=== PATIENT | female | born 1980 | race Caucasian/White ===

== ENCOUNTER 2016-10-10 21:23 | Emergency (ER) | payer OTHER ==
[~2016-10-10] VITALS: Ht 162.5 cm; Wt 92.1 kg
[~2016-10-10 21:23] MED LIST: AMITRIPTYLINE25 MG PO; ATIVAN1 MG PO; COUMADIN10 M1 PO; COUMADIN5 M2 PO; DURAGESIC1 EACH TD; DURAGESIC25 MCG/HR TD; FLAGYL500 MG PO; LEXAPRO20 MG PO; METHOCARBAMOL750 M1 PO; NEURONTIN600 MG PO; OXYCODONE HCL10 M1 PO; PHENERGAN25 M3 PO; PLAVIX75 M1 PO; PROTONIX40 MG PO; RIZATRIPTAN5 MG PO; TRICOR48 MG PO; ZOFRAN4 MG PO
[2016-10-10] MEDS ORDERED: LEVORPHANOL TART2 MG PO (21:42)
[2016-10-10] MEDS ORDERED: CLONAZEPAM1 MG PO (21:43)
[2016-10-10] MEDS ORDERED: CYMBALTA60 MG PO (21:45)
[2016-10-10 22:20] LABS: BASO % 0.3 % (0.0-1.0); EOS % 0.3 % (1.0-4.0); HEMATOCRIT 36.5 % (37.0-47.0); HEMOGLOBIN 12.4 g/dl (12.0-16.0); LYMPH # 1.7 10*3/uL (1.3-4.4); LYMPH % 26.6 % (27.0-41.0); MEAN CELL VOLUME 84.5 fl (81.0-99.0); MEAN CORPUSCULAR HGB 28.7 pg (27.0-31.0); MEAN PLATELET VOLUME 8.9 fl (9.6-12.3); MONO # 0.3 10*3/uL (0.1-1.0); MONO % 4.5 % (3.0-9.0); NEUT # 4.4 10*3/uL (2.3-7.9); PLATELET COUNT AUTOMATED 323 10*3/uL (130-400); RED BLOOD COUNT 4.32 10*6/uL (4.10-5.10); RED CELL DISTRI WIDTH 12.2 % (0-14.5); WHITE BLOOD COUNT 6.5 10*3/uL (4.8-10.8)
[2016-10-10 22:34] LABS: ALBUMIN 4.1 gm/dl (3.1-4.5); BILIRUBIN, TOTAL 0.3 mg/dl (0.2-1.0); BUN 15 mg/dl (7-24); CARBON DIOXIDE 23 mmol/L (21-32); CHLORIDE 103 mmol/L (98-107); EST GLOM FILT AFRICAN AMERICAN > 60 ml/min; GLUCOSE 89 mg/dL (65-99); POTASSIUM 3.5 mmol/L (3.5-5.1); SGOT/AST 24 IU/L (3-35); SGPT/ALT 34 U/L (12-78); SODIUM 141 mmol/L (136-145); TOTAL PROTEIN 7.9 gm/dL (6.4-8.2)
[2016-10-10 22:37] LABS: ALKALINE PHOSPHATASE < 10 U/L (45-117)
[2016-10-10 22:41] LABS: INTERNATIONAL NORM RATIO 3.2 (2.0-3.5); PROTHROMBIN TIME 36.5 SECONDS (9.0-12.4)
== END 2016-10-11 02:15 | disposition home or self-care (01) ==
LOC: ED 21:23
PROVIDERS: Physician Assistant
DX: K52.9 Noninfective gastroenteritis and colitis, unspecified (principal); R51 Headache; Z88.1 Allergy status to other antibiotic agents; Z91.040 Latex allergy status; Z88.8 Allergy status to other drugs, medicaments and biological substances; Z79.899 Other long term (current) drug therapy; Z79.02 Long term (current) use of antithrombotics/antiplatelets; Z87.891 Personal history of nicotine dependence

== ENCOUNTER 2016-10-11 21:03 | Emergency (ER) | payer OTHER ==
[~2016-10-11] VITALS: Ht 162.5 cm; Wt 92.5 kg
[~2016-10-11 21:03] MED LIST changes: +CLONAZEPAM1 MG PO; +CYMBALTA60 MG PO; +LEVORPHANOL TART2 MG PO
[2016-10-11 21:59] LABS: BASO % 0.3 % (0.0-1.0); EOS % 0.3 % (1.0-4.0); HEMATOCRIT 34.8 % (37.0-47.0); HEMOGLOBIN 11.5 g/dl (12.0-16.0); LYMPH # 1.3 10*3/uL (1.3-4.4); MEAN CELL VOLUME 85.5 fl (81.0-99.0); MEAN CORPUSCULAR HGB 28.3 pg (27.0-31.0); MEAN PLATELET VOLUME 9.1 fl (9.6-12.3); MONO # 0.4 10*3/uL (0.1-1.0); MONO % 5.2 % (3.0-9.0); NEUT # 5.2 10*3/uL (2.3-7.9); NEUT % 74.9 % (47.0-73.0); PLATELET COUNT AUTOMATED 324 10*3/uL (130-400); RED BLOOD COUNT 4.07 10*6/uL (4.10-5.10); RED CELL DISTRI WIDTH 12.5 % (0-14.5); WHITE BLOOD COUNT 6.9 10*3/uL (4.8-10.8)
[2016-10-11 22:06] LABS: INTERNATIONAL NORM RATIO 3.8 (2.0-3.5); PROTHROMBIN TIME 44.4 SECONDS (9.0-12.4)
[2016-10-11 22:14] LABS: ALBUMIN 3.9 gm/dl (3.1-4.5); BILIRUBIN, TOTAL 0.4 mg/dl (0.2-1.0); BUN 15 mg/dl (7-24); CARBON DIOXIDE 24 mmol/L (21-32); CHLORIDE 107 mmol/L (98-107); EST GLOM FILT AFRICAN AMERICAN > 60 ml/min; GLUCOSE 89 mg/dL (65-99); POTASSIUM 3.7 mmol/L (3.5-5.1); SGOT/AST 22 IU/L (3-35); SGPT/ALT 32 U/L (12-78); SODIUM 144 mmol/L (136-145); TOTAL PROTEIN 7.3 gm/dL (6.4-8.2)
[2016-10-11 22:16] LABS: ALKALINE PHOSPHATASE < 10 U/L (45-117)
== END 2016-10-11 23:55 | disposition admitted as inpatient to this hospital (09) ==
LOC: ED 21:03
PROVIDERS: Physician Assistant
DX: R10.11 Right upper quadrant pain (principal); R11.2 Nausea with vomiting, unspecified; F17.200 Nicotine dependence, unspecified, uncomplicated; Z90.49 Acquired absence of other specified parts of digestive tract; Z88.1 Allergy status to other antibiotic agents; Z91.040 Latex allergy status; Z79.899 Other long term (current) drug therapy

== ENCOUNTER 2016-10-11 22:55 | Inpatient (IN) | payer OTHER ==
[~2016-10-11] VITALS: Ht 162.5 cm; Wt 92.9 kg
--- NOTE | ~2016-10-11 | PR ---
[place], [place] PROGRESS NOTE NAME: SOPHIE BADILLO UNIT #: [id number] ROOM: 512 DOCTOR: JUJU ROMAN MD BIRTHDATE: [birth year] DOS: 10/20/2016 HISTORY OF PRESENT ILLNESS: A 36-year-old patient who has presented with relentless nausea and vomiting. The patient has been undergoing evaluation and assessment and endoscopy showed distal esophageal ulcer. She had cholecystectomy done; laparoscopic cholecystectomy has been done. She has been having hypercoagulable state and as a result, she has been on heparin and Coumadin. Her INR being managed. She had gastritis and duodenitis, multiple duodenal ulcerations that has been addressed with PPI therapy. REVIEW OF SYSTEMS: HEENT: Denies double vision, blurred vision. RESPIRATORY: Denies acute shortness of breath. CARDIOVASCULAR: Denies chest pain. DIGESTIVE SYSTEM: Status post EGD, status post cholecystectomy, duodenitis, gastritis, multiple duodenal ulcers. PHYSICAL EXAMINATION: VITAL SIGNS: Stable, comfortable. HEENT: Head normocephalic, nontraumatic. Mouth and buccal mucosa benign. NECK: Supple, no thyromegaly. CHEST: Symmetric anatomy, equal expansion. No wheeze, no rhonchi. HEART: Normal sinus rhythm, no gallop, no murmur. ABDOMEN: Soft. Postoperatively, bowel sounds present. EXTREMITIES: No cyanosis. No pedal edema. NEUROLOGIC: Alert, oriented to time, place, person. IMPRESSION: Gastritis, duodenitis, multi-duodenal ulcer, status post cholecystitis, cholecystectomy, chronic pain, gastroesophageal reflux disease, depression. PLAN AND DISCUSSION: Supportive therapy and PPI on board, 40 mg of Protonix every day, anticoagulations are in effect for her hypercoagulable state, and INR 1.5 today. [place], [place] PROGRESS NOTE NAME: SOPHIE BADILLO UNIT #: [id number] ROOM: 512 DOCTOR: JUJU ROMAN MD BIRTHDATE: [birth year] JUJU ROMAN MD CM:PNTRANS [id number] JUJU ROMAN MD 10/21/16 0449 interface
[2016-10-12] VITALS: BP 143/69
[2016-10-12 02:17] LABS: BILIRUBIN NEGATIVE (NEGATIVE); BLOOD NEGATIVE (NEGATIVE); CLARITY SL CLOUDY (CLEAR); COLOR YELLOW (YELLOW); GLUCOSE NEGATIVE (NEGATIVE); KETONE NEGATIVE (NEGATIVE); LEUKO ESTERASE NEGATIVE (NEGATIVE); NITRITE NEGATIVE (NEGATIVE); PH 5.5 (5.0-9.0); PROTEIN NEGATIVE (NEGATIVE); SPECIFIC GRAVITY <= 1.005 (1.005-1.030); UROBILINOGEN 0.2 E.U./dl (0.2-1.0)
[2016-10-12 02:26] LABS: URINE AMPHETAMINES < 1000 (1000ng/ml); URINE BARBITURATES < 200 (200ng/ml); URINE COCAINE < 300 (300ng/ml)
[2016-10-12 02:45] LABS: EPITHELIAL CELLS 15-20
[2016-10-12 02:46] LABS: RBC 0-2 rbc/hpf (0-2); URINE REFLEX COMMENT NO (NO)
[2016-10-12 04:00] VITALS: BP 124/67
[2016-10-12 06:53] LABS: BASO % 0.4 % (0.0-1.0); EOS # 0.1 10*3/uL (0.0-0.4); EOS % 0.9 % (1.0-4.0); HEMATOCRIT 31.1 % (37.0-47.0); HEMOGLOBIN 10.4 g/dl (12.0-16.0); LYMPH # 2.3 10*3/uL (1.3-4.4); LYMPH % 31.3 % (27.0-41.0); MEAN CELL VOLUME 84.7 fl (81.0-99.0); MEAN CORPUSCULAR HGB 28.3 pg (27.0-31.0); MEAN CORPUSCULAR HGB CONC 33.4 g/dl (33.0-37.0); MEAN PLATELET VOLUME 9.3 fl (9.6-12.3); MONO # 0.6 10*3/uL (0.1-1.0); MONO % 8.1 % (3.0-9.0); NEUT # 4.4 10*3/uL (2.3-7.9); NEUT % 59.2 % (47.0-73.0); PLATELET COUNT AUTOMATED 279 10*3/uL (130-400); RED BLOOD COUNT 3.67 10*6/uL (4.10-5.10); RED CELL DISTRI WIDTH 12.4 % (0-14.5); WHITE BLOOD COUNT 7.5 10*3/uL (4.8-10.8)
[2016-10-12 07:21] LABS: INTERNATIONAL NORM RATIO 2.6 (2.0-3.5); PROTHROMBIN TIME 29.1 SECONDS (9.0-12.4)
[2016-10-12 07:30] LABS: BUN 13 mg/dl (7-24); CARBON DIOXIDE 24 mmol/L (21-32); CHLORIDE 110 mmol/L (98-107); CHOLESTEROL 150 mg/dL (<200); EST GLOM FILT AFRICAN AMERICAN > 60 ml/min; GLUCOSE 68 mg/dL (65-99); POTASSIUM 3.4 mmol/L (3.5-5.1); SODIUM 142 mmol/L (136-145); TRIGLYCERIDES 93 mg/dl (<150); VITAMIN D, 25-HYDROXY 23.4 ng/mL (30-100); VLDL CHOLESTEROL 19 mg/dL (6-40)
[2016-10-12 07:33] LABS: FOLIC ACID > 24.00 ng/mL (>5.38)
[2016-10-12 07:38] LABS: FREE T4 1.14 ng/dl (0.76-1.46); HDL CHOLESTEROL 56 mg/dl (40-60); LDL CHOLESTEROL 75 mg/dL (9-159); PHOSPHOROUS 2.8 mg/dL (2.5-4.9)
[2016-10-12 08:00] VITALS: BP 148/90
[2016-10-12 12:00] VITALS: BP 136/75
[2016-10-12 16:00] VITALS: BP 116/89
[2016-10-12 20:00] VITALS: BP 122/76
[2016-10-13] VITALS (7 sets, daily range): BP systolic 96–150; BP diastolic 57–108
[2016-10-13 07:07] LABS: BASO % 0.7 % (0.0-1.0); EOS # 0.2 10*3/uL (0.0-0.4); EOS % 3.4 % (1.0-4.0); HEMATOCRIT 32.9 % (37.0-47.0); HEMOGLOBIN 11.1 g/dl (12.0-16.0); LYMPH # 2.4 10*3/uL (1.3-4.4); LYMPH % 40.6 % (27.0-41.0); MEAN CORPUSCULAR HGB 28.7 pg (27.0-31.0); MEAN CORPUSCULAR HGB CONC 33.7 g/dl (33.0-37.0); MEAN PLATELET VOLUME 8.7 fl (9.6-12.3); MONO # 0.3 10*3/uL (0.1-1.0); MONO % 5.8 % (3.0-9.0); NEUT # 2.9 10*3/uL (2.3-7.9); NEUT % 49.3 % (47.0-73.0); PLATELET COUNT AUTOMATED 300 10*3/uL (130-400); RED BLOOD COUNT 3.87 10*6/uL (4.10-5.10); RED CELL DISTRI WIDTH 12.3 % (0-14.5); WHITE BLOOD COUNT 5.9 10*3/uL (4.8-10.8)
[2016-10-13 07:22] LABS: INTERNATIONAL NORM RATIO 1.2 (2.0-3.5); PROTHROMBIN TIME 12.9 SECONDS (9.0-12.4)
[2016-10-13 07:31] LABS: BUN 8 mg/dl (7-24); CARBON DIOXIDE 26 mmol/L (21-32); CHLORIDE 104 mmol/L (98-107); EST GLOM FILT AFRICAN AMERICAN > 60 ml/min; GLUCOSE 68 mg/dL (65-99); IRON 84 ug/dL (50-170); IRON SATURATION 28 %; POTASSIUM 3.3 mmol/L (3.5-5.1); SODIUM 141 mmol/L (136-145); UIBC 206 ug/dL (110-365)
[2016-10-14] VITALS: BP 142/74
[2016-10-14 06:28] LABS: BASO % 0.4 % (0.0-1.0); EOS # 0.2 10*3/uL (0.0-0.4); EOS % 2.2 % (1.0-4.0); HEMATOCRIT 30.9 % (37.0-47.0); HEMOGLOBIN 10.5 g/dl (12.0-16.0); LYMPH # 2.4 10*3/uL (1.3-4.4); MEAN CELL VOLUME 84.4 fl (81.0-99.0); MEAN CORPUSCULAR HGB 28.7 pg (27.0-31.0); MEAN PLATELET VOLUME 8.9 fl (9.6-12.3); MONO # 0.5 10*3/uL (0.1-1.0); MONO % 7.4 % (3.0-9.0); NEUT # 3.7 10*3/uL (2.3-7.9); NEUT % 54.7 % (47.0-73.0); PLATELET COUNT AUTOMATED 303 10*3/uL (130-400); RED BLOOD COUNT 3.66 10*6/uL (4.10-5.10); RED CELL DISTRI WIDTH 12.2 % (0-14.5); WHITE BLOOD COUNT 6.8 10*3/uL (4.8-10.8)
[2016-10-14 06:57] LABS: INTERNATIONAL NORM RATIO 1.1 (2.0-3.5); PROTHROMBIN TIME 11.9 SECONDS (9.0-12.4)
[2016-10-14 07:09] LABS: BUN 12 mg/dl (7-24); CARBON DIOXIDE 23 mmol/L (21-32); CHLORIDE 103 mmol/L (98-107); EST GLOM FILT AFRICAN AMERICAN > 60 ml/min; GLUCOSE 61 mg/dL (65-99); PHOSPHOROUS 2.9 mg/dL (2.5-4.9); POTASSIUM 3.6 mmol/L (3.5-5.1); SODIUM 140 mmol/L (136-145)
[2016-10-14 08:00] VITALS: BP 106/67
[2016-10-14 12:00] VITALS: BP 134/86
[2016-10-14 16:05] VITALS: BP 127/71
[2016-10-14 20:00] VITALS: BP 124/66
[2016-10-15] VITALS: BP 119/70
[2016-10-15 08:00] VITALS: BP 115/73
[2016-10-15 08:43] LABS: BASO # 0.1 10*3/uL (0.0-0.1); BASO % 0.6 % (0.0-1.0); EOS # 0.3 10*3/uL (0.0-0.4); EOS % 3.5 % (1.0-4.0); HEMATOCRIT 34.4 % (37.0-47.0); HEMOGLOBIN 11.6 g/dl (12.0-16.0); LYMPH # 3.3 10*3/uL (1.3-4.4); LYMPH % 37.5 % (27.0-41.0); MEAN CELL VOLUME 83.3 fl (81.0-99.0); MEAN CORPUSCULAR HGB 28.1 pg (27.0-31.0); MEAN CORPUSCULAR HGB CONC 33.7 g/dl (33.0-37.0); MEAN PLATELET VOLUME 9.2 fl (9.6-12.3); MONO # 0.6 10*3/uL (0.1-1.0); MONO % 6.2 % (3.0-9.0); NEUT # 4.6 10*3/uL (2.3-7.9); NEUT % 51.9 % (47.0-73.0); PLATELET COUNT AUTOMATED 354 10*3/uL (130-400); RED BLOOD COUNT 4.13 10*6/uL (4.10-5.10); RED CELL DISTRI WIDTH 12.4 % (0-14.5); WHITE BLOOD COUNT 8.8 10*3/uL (4.8-10.8)
[2016-10-15 09:13] LABS: BUN 13 mg/dl (7-24); CARBON DIOXIDE 24 mmol/L (21-32); CHLORIDE 102 mmol/L (98-107); EST GLOM FILT AFRICAN AMERICAN > 60 ml/min; GLUCOSE 107 mg/dL (65-99); POTASSIUM 3.4 mmol/L (3.5-5.1); SODIUM 137 mmol/L (136-145)
[2016-10-15 09:17] LABS: INTERNATIONAL NORM RATIO 1.1 (2.0-3.5); PROTHROMBIN TIME 11.7 SECONDS (9.0-12.4)
[2016-10-15 12:13] VITALS: BP 156/79
[2016-10-15 16:00] VITALS: BP 124/70
[2016-10-15 20:00] VITALS: BP 110/73
[2016-10-16] VITALS (10 sets, daily range): BP systolic 108–154; BP diastolic 68–100
[2016-10-16 06:36] LABS: BASO % 0.6 % (0.0-1.0); EOS # 0.2 10*3/uL (0.0-0.4); EOS % 3.4 % (1.0-4.0); HEMATOCRIT 30.5 % (37.0-47.0); HEMOGLOBIN 10.5 g/dl (12.0-16.0); LYMPH # 2.3 10*3/uL (1.3-4.4); LYMPH % 33.5 % (27.0-41.0); MEAN CELL VOLUME 85.4 fl (81.0-99.0); MEAN CORPUSCULAR HGB 29.4 pg (27.0-31.0); MEAN CORPUSCULAR HGB CONC 34.4 g/dl (33.0-37.0); MEAN PLATELET VOLUME 9.4 fl (9.6-12.3); MONO # 0.5 10*3/uL (0.1-1.0); MONO % 7.5 % (3.0-9.0); NEUT # 3.7 10*3/uL (2.3-7.9); NEUT % 54.6 % (47.0-73.0); PLATELET COUNT AUTOMATED 304 10*3/uL (130-400); RED BLOOD COUNT 3.57 10*6/uL (4.10-5.10); RED CELL DISTRI WIDTH 12.8 % (0-14.5); WHITE BLOOD COUNT 6.8 10*3/uL (4.8-10.8)
[2016-10-16 06:59] LABS: INTERNATIONAL NORM RATIO 1.1 (2.0-3.5); PROTHROMBIN TIME 11.5 SECONDS (9.0-12.4)
[2016-10-16 07:01] LABS: ALBUMIN 3.3 gm/dl (3.1-4.5); ALKALINE PHOSPHATASE 12 U/L (45-117); BILIRUBIN, TOTAL 0.3 mg/dl (0.2-1.0); BUN 17 mg/dl (7-24); CARBON DIOXIDE 27 mmol/L (21-32); CHLORIDE 105 mmol/L (98-107); EST GLOM FILT AFRICAN AMERICAN > 60 ml/min; GLUCOSE 96 mg/dL (65-99); POTASSIUM 3.4 mmol/L (3.5-5.1); SGOT/AST 12 IU/L (3-35); SGPT/ALT 25 U/L (12-78); SODIUM 141 mmol/L (136-145); TOTAL PROTEIN 6.4 gm/dL (6.4-8.2)
[2016-10-17] VITALS: BP 125/84
[2016-10-17 06:28] LABS: BASO % 0.3 % (0.0-1.0); EOS # 0.1 10*3/uL (0.0-0.4); EOS % 1.7 % (1.0-4.0); HEMATOCRIT 28.8 % (37.0-47.0); HEMOGLOBIN 9.6 g/dl (12.0-16.0); LYMPH # 1.6 10*3/uL (1.3-4.4); LYMPH % 20.5 % (27.0-41.0); MEAN CELL VOLUME 85.7 fl (81.0-99.0); MEAN CORPUSCULAR HGB 28.6 pg (27.0-31.0); MEAN CORPUSCULAR HGB CONC 33.3 g/dl (33.0-37.0); MEAN PLATELET VOLUME 9.5 fl (9.6-12.3); MONO # 0.7 10*3/uL (0.1-1.0); MONO % 8.3 % (3.0-9.0); NEUT # 5.4 10*3/uL (2.3-7.9); NEUT % 68.8 % (47.0-73.0); PLATELET COUNT AUTOMATED 287 10*3/uL (130-400); RED BLOOD COUNT 3.36 10*6/uL (4.10-5.10); RED CELL DISTRI WIDTH 13.2 % (0-14.5); WHITE BLOOD COUNT 7.8 10*3/uL (4.8-10.8)
[2016-10-17 07:07] LABS: ALBUMIN 3.1 gm/dl (3.1-4.5); ALKALINE PHOSPHATASE 10 U/L (45-117); BILIRUBIN, TOTAL 0.4 mg/dl (0.2-1.0); BUN 11 mg/dl (7-24); CARBON DIOXIDE 28 mmol/L (21-32); CHLORIDE 103 mmol/L (98-107); EST GLOM FILT AFRICAN AMERICAN > 60 ml/min; GLUCOSE 108 mg/dL (65-99); POTASSIUM 3.3 mmol/L (3.5-5.1); SGOT/AST 34 IU/L (3-35); SGPT/ALT 36 U/L (12-78); SODIUM 138 mmol/L (136-145); TOTAL PROTEIN 6.1 gm/dL (6.4-8.2)
[2016-10-17 08:00] VITALS: BP 102/72
[2016-10-17 11:08] LABS: ANTI-THROMBIN III ACTIVITY 103 % (75-135); LUPUS DRVVT 55.3 sec (0.0-47.0); PROTEIN S, FREE 53 % (57-157); PROTEIN S, TOTAL 68 % (60-150)
[2016-10-17 12:00] VITALS: BP 113/66
[2016-10-17 16:00] VITALS: BP 134/81
[2016-10-17 20:00] VITALS: BP 112/88
[2016-10-18] VITALS: BP 128/70
[2016-10-18 04:00] VITALS: BP 128/84
[2016-10-18 04:19] LABS: BASO % 0.2 % (0.0-1.0); EOS # 0.2 10*3/uL (0.0-0.4); EOS % 2.1 % (1.0-4.0); HEMATOCRIT 28.7 % (37.0-47.0); HEMOGLOBIN 9.7 g/dl (12.0-16.0); LYMPH # 1.6 10*3/uL (1.3-4.4); LYMPH % 19.4 % (27.0-41.0); MEAN CELL VOLUME 85.7 fl (81.0-99.0); MEAN CORPUSCULAR HGB CONC 33.8 g/dl (33.0-37.0); MEAN PLATELET VOLUME 8.9 fl (9.6-12.3); MONO # 0.6 10*3/uL (0.1-1.0); MONO % 6.9 % (3.0-9.0); NEUT % 71.2 % (47.0-73.0); PLATELET COUNT AUTOMATED 260 10*3/uL (130-400); RED BLOOD COUNT 3.35 10*6/uL (4.10-5.10); RED CELL DISTRI WIDTH 13.6 % (0-14.5); WHITE BLOOD COUNT 8.5 10*3/uL (4.8-10.8)
[2016-10-18 04:37] LABS: BUN 11 mg/dl (7-24); CARBON DIOXIDE 29 mmol/L (21-32); CHLORIDE 105 mmol/L (98-107); EST GLOM FILT AFRICAN AMERICAN > 60 ml/min; GLUCOSE 116 mg/dL (65-99); POTASSIUM 3.6 mmol/L (3.5-5.1); SODIUM 143 mmol/L (136-145)
[2016-10-18 04:43] LABS: INTERNATIONAL NORM RATIO 1.1 (2.0-3.5); PROTHROMBIN TIME 11.2 SECONDS (9.0-12.4)
[2016-10-18 08:00] VITALS: BP 134/84
[2016-10-18 08:11] LABS: LUPUS REFLEX INTERPRETATION Comment: (.)
[2016-10-18 12:00] VITALS: BP 120/64
[2016-10-18 16:00] VITALS: BP 140/84
[2016-10-18 20:00] VITALS: BP 128/68
[2016-10-19] VITALS: BP 133/82
[2016-10-19] MEDS ORDERED: RIZATRIPTAN5 MG PO (01:22)
[2016-10-19 06:01] LABS: BASO % 0.5 % (0.0-1.0); EOS # 0.3 10*3/uL (0.0-0.4); EOS % 4.1 % (1.0-4.0); HEMATOCRIT 30.6 % (37.0-47.0); HEMOGLOBIN 10.1 g/dl (12.0-16.0); LYMPH # 2.2 10*3/uL (1.3-4.4); LYMPH % 28.2 % (27.0-41.0); MEAN CELL VOLUME 87.4 fl (81.0-99.0); MEAN CORPUSCULAR HGB 28.9 pg (27.0-31.0); MEAN PLATELET VOLUME 9.3 fl (9.6-12.3); MONO # 0.6 10*3/uL (0.1-1.0); MONO % 7.8 % (3.0-9.0); NEUT # 4.6 10*3/uL (2.3-7.9); NEUT % 59.1 % (47.0-73.0); PLATELET COUNT AUTOMATED 295 10*3/uL (130-400); RED CELL DISTRI WIDTH 13.7 % (0-14.5); WHITE BLOOD COUNT 7.8 10*3/uL (4.8-10.8)
[2016-10-19 06:20] LABS: BUN 8 mg/dl (7-24); CARBON DIOXIDE 25 mmol/L (21-32); CHLORIDE 107 mmol/L (98-107); EST GLOM FILT AFRICAN AMERICAN > 60 ml/min; GLUCOSE 85 mg/dL (65-99); INTERNATIONAL NORM RATIO 1.1 (2.0-3.5); POTASSIUM 3.5 mmol/L (3.5-5.1); SODIUM 141 mmol/L (136-145)
[2016-10-19 08:00] VITALS: BP 142/98
[2016-10-19 12:00] VITALS: BP 136/73
[2016-10-19 16:00] VITALS: BP 122/67
[2016-10-19 20:00] VITALS: BP 134/84
[2016-10-20] VITALS: BP 124/70
[2016-10-20 05:50] LABS: BASO % 0.6 % (0.0-1.0); EOS # 0.3 10*3/uL (0.0-0.4); EOS % 3.9 % (1.0-4.0); HEMATOCRIT 30.3 % (37.0-47.0); HEMOGLOBIN 9.8 g/dl (12.0-16.0); LYMPH % 28.6 % (27.0-41.0); MEAN CELL VOLUME 87.1 fl (81.0-99.0); MEAN CORPUSCULAR HGB 28.2 pg (27.0-31.0); MEAN CORPUSCULAR HGB CONC 32.3 g/dl (33.0-37.0); MEAN PLATELET VOLUME 9.4 fl (9.6-12.3); MONO # 0.4 10*3/uL (0.1-1.0); MONO % 5.9 % (3.0-9.0); NEUT # 4.2 10*3/uL (2.3-7.9); NEUT % 60.7 % (47.0-73.0); PLATELET COUNT AUTOMATED 305 10*3/uL (130-400); RED BLOOD COUNT 3.48 10*6/uL (4.10-5.10); RED CELL DISTRI WIDTH 13.4 % (0-14.5); WHITE BLOOD COUNT 6.9 10*3/uL (4.8-10.8)
[2016-10-20 06:00] LABS: INTERNATIONAL NORM RATIO 1.5 (2.0-3.5); PROTHROMBIN TIME 16.1 SECONDS (9.0-12.4)
[2016-10-20 08:00] VITALS: BP 142/79
[2016-10-20 12:00] VITALS: BP 122/72
[2016-10-20 16:00] VITALS: BP 158/94
[2016-10-20 20:00] VITALS: BP 144/90; BP 144/95
[2016-10-21] VITALS: BP 132/76
[2016-10-21 05:51] LABS: INTERNATIONAL NORM RATIO 1.8 (2.0-3.5); PROTHROMBIN TIME 20.1 SECONDS (9.0-12.4)
[2016-10-21 06:07] LABS: ALBUMIN 3.3 gm/dl (3.1-4.5); BASO % 0.7 % (0.0-1.0); BILIRUBIN, TOTAL 0.2 mg/dl (0.2-1.0); BUN 6 mg/dl (7-24); CARBON DIOXIDE 24 mmol/L (21-32); CHLORIDE 107 mmol/L (98-107); EOS # 0.3 10*3/uL (0.0-0.4); EOS % 4.7 % (1.0-4.0); EST GLOM FILT AFRICAN AMERICAN > 60 ml/min; GLUCOSE 82 mg/dL (65-99); HEMATOCRIT 30.3 % (37.0-47.0); LYMPH # 2.3 10*3/uL (1.3-4.4); LYMPH % 38.4 % (27.0-41.0); MEAN CELL VOLUME 87.6 fl (81.0-99.0); MEAN CORPUSCULAR HGB 28.9 pg (27.0-31.0); MEAN PLATELET VOLUME 9.4 fl (9.6-12.3); MONO # 0.5 10*3/uL (0.1-1.0); MONO % 8.1 % (3.0-9.0); NEUT # 2.9 10*3/uL (2.3-7.9); NEUT % 47.8 % (47.0-73.0); PLATELET COUNT AUTOMATED 315 10*3/uL (130-400); POTASSIUM 3.4 mmol/L (3.5-5.1); RED BLOOD COUNT 3.46 10*6/uL (4.10-5.10); RED CELL DISTRI WIDTH 13.3 % (0-14.5); SGOT/AST 15 IU/L (3-35); SGPT/ALT 26 U/L (12-78); SODIUM 141 mmol/L (136-145); TOTAL PROTEIN 6.7 gm/dL (6.4-8.2)
[2016-10-21 06:08] LABS: ALKALINE PHOSPHATASE < 10 U/L (45-117)
[2016-10-21 08:00] VITALS: BP 120/79
[2016-10-21 12:00] VITALS: BP 139/63; BP 154/87
[2016-10-21 16:00] VITALS: BP 141/79
[2016-10-21 20:00] VITALS: BP 149/92
[2016-10-22] VITALS: BP 137/85
[2016-10-22 06:49] LABS: PROTHROMBIN TIME 21.7 SECONDS (9.0-12.4)
[2016-10-22 08:00] VITALS: BP 136/69
[2016-10-22 12:00] VITALS: BP 144/74
[2016-10-22 20:00] VITALS: BP 138/92
[2016-10-23] VITALS: BP 120/68
[2016-10-23 06:07] LABS: BASO % 0.4 % (0.0-1.0); EOS # 0.2 10*3/uL (0.0-0.4); EOS % 2.9 % (1.0-4.0); HEMOGLOBIN 9.9 g/dl (12.0-16.0); LYMPH # 1.6 10*3/uL (1.3-4.4); LYMPH % 21.6 % (27.0-41.0); MEAN CELL VOLUME 86.7 fl (81.0-99.0); MEAN CORPUSCULAR HGB 28.6 pg (27.0-31.0); MEAN PLATELET VOLUME 9.5 fl (9.6-12.3); MONO # 0.6 10*3/uL (0.1-1.0); MONO % 7.9 % (3.0-9.0); NEUT # 4.9 10*3/uL (2.3-7.9); NEUT % 66.9 % (47.0-73.0); PLATELET COUNT AUTOMATED 321 10*3/uL (130-400); RED BLOOD COUNT 3.46 10*6/uL (4.10-5.10); RED CELL DISTRI WIDTH 13.3 % (0-14.5); WHITE BLOOD COUNT 7.3 10*3/uL (4.8-10.8)
[2016-10-23 06:15] LABS: INTERNATIONAL NORM RATIO 2.1 (2.0-3.5); PROTHROMBIN TIME 23.1 SECONDS (9.0-12.4)
[2016-10-23 06:28] LABS: ALBUMIN 3.2 gm/dl (3.1-4.5); BUN 5 mg/dl (7-24); CARBON DIOXIDE 24 mmol/L (21-32); CHLORIDE 107 mmol/L (98-107); GLUCOSE 97 mg/dL (65-99); POTASSIUM 3.3 mmol/L (3.5-5.1); SGOT/AST 24 IU/L (3-35); SODIUM 141 mmol/L (136-145)
[2016-10-23 06:31] LABS: ALKALINE PHOSPHATASE 13 U/L (45-117); BILIRUBIN, TOTAL 0.2 mg/dl (0.2-1.0); EST GLOM FILT AFRICAN AMERICAN > 60 ml/min; SGPT/ALT 35 U/L (12-78); TOTAL PROTEIN 6.7 gm/dL (6.4-8.2)
[2016-10-23 08:00] VITALS: BP 132/81
[2016-10-23] MEDS ORDERED: D-1000 185 MG-11 TAB PO (10:58)
[2016-10-23] MEDS ORDERED: ZOFRAN4 MG PO (11:04)
[2016-10-23] MEDS ORDERED: CARAFATE1 GM PO (11:41)
== END 2016-10-23 12:10 | disposition home or self-care (01) | DRG 418 ==
LOC: 5E 22:55 → EDHOLD 22:55 → 5E 23:18
PROVIDERS: Family Medicine; Hospitalist; Internal Medicine; Internal Medicine Hospice and Palliative Medicine; Internal Medicine Nephrology; Surgery
PROC: 0DB68ZX Excision of Stomach, Via Natural or Artificial Opening Endoscopic, Diagnostic (ICD-10-PCS; principal; 2016-10-13)
PROC: 0FT44ZZ Resection of Gallbladder, Percutaneous Endoscopic Approach (ICD-10-PCS; 2016-10-16)
DX: K80.12 Calculus of gallbladder with acute and chronic cholecystitis without obstruction (principal); D68.59 Other primary thrombophilia; E44.0 Moderate protein-calorie malnutrition; D72.0 Genetic anomalies of leukocytes; K26.9 Duodenal ulcer, unspecified as acute or chronic, without hemorrhage or perforation; G62.9 Polyneuropathy, unspecified; K76.0 Fatty (change of) liver, not elsewhere classified; K52.9 Noninfective gastroenteritis and colitis, unspecified; E87.6 Hypokalemia; F32.9 Major depressive disorder, single episode, unspecified; D64.9 Anemia, unspecified; F41.1 Generalized anxiety disorder; K21.9 Gastro-esophageal reflux disease without esophagitis; K44.9 Diaphragmatic hernia without obstruction or gangrene; E03.9 Hypothyroidism, unspecified; E66.09 Other obesity due to excess calories; G89.29 Other chronic pain; G43.909 Migraine, unspecified, not intractable, without status migrainosus; E78.1 Pure hyperglyceridemia; K29.70 Gastritis, unspecified, without bleeding; K29.80 Duodenitis without bleeding; Z79.01 Long term (current) use of anticoagulants; Z79.899 Other long term (current) drug therapy; Z86.718 Personal history of other venous thrombosis and embolism; Z82.49 Family history of ischemic heart disease and other diseases of the circulatory system; Z83.3 Family history of diabetes mellitus; Z88.1 Allergy status to other antibiotic agents; Z91.040 Latex allergy status

== ENCOUNTER 2016-11-06 18:23 | Inpatient (IN) | payer OTHER ==
[~2016-11-06] VITALS: Ht 162.5 cm; Wt 88.9 kg
[~2016-11-06 18:23] MED LIST changes: +CARAFATE1 GM PO; +D-1000 185 MG-11 TAB PO
[2016-11-06 19:05] VITALS: BP 148/94
[2016-11-06 19:53] LABS: BASO % 0.2 % (0.0-1.0); EOS # 0.2 10*3/uL (0.0-0.4); EOS % 2.8 % (1.0-4.0); HEMATOCRIT 34.1 % (37.0-47.0); LYMPH # 1.5 10*3/uL (1.3-4.4); LYMPH % 24.5 % (27.0-41.0); MEAN CORPUSCULAR HGB CONC 32.3 g/dl (33.0-37.0); MEAN PLATELET VOLUME 9.6 fl (9.6-12.3); MONO # 0.4 10*3/uL (0.1-1.0); MONO % 6.3 % (3.0-9.0); PLATELET COUNT AUTOMATED 346 10*3/uL (130-400); RED BLOOD COUNT 3.79 10*6/uL (4.10-5.10); RED CELL DISTRI WIDTH 14.1 % (0-14.5)
[2016-11-06 20:03] LABS: INTERNATIONAL NORM RATIO 1.1 (2.0-3.5); PROTHROMBIN TIME 11.3 SECONDS (9.0-12.4)
[2016-11-06 20:06] LABS: BUN 11 mg/dl (7-24); CARBON DIOXIDE 29 mmol/L (21-32); CHLORIDE 105 mmol/L (98-107); EST GLOM FILT AFRICAN AMERICAN > 60 ml/min; GLUCOSE 97 mg/dL (65-99); POTASSIUM 3.6 mmol/L (3.5-5.1); SODIUM 140 mmol/L (136-145)
[2016-11-06 21:30] VITALS: BP 128/82
[2016-11-06] MEDS ORDERED: MIRALAX POWDER255 G1 PO (21:56)
[2016-11-06] MEDS ORDERED: VISTARIL25 MG PO (22:19)
[2016-11-06 22:45] LABS: BILIRUBIN 1+ (NEGATIVE); BLOOD 3+ (NEGATIVE); CLARITY SL CLOUDY (CLEAR); COLOR YELLOW (YELLOW); GLUCOSE NEGATIVE (NEGATIVE); KETONE TRACE (NEGATIVE); LEUKO ESTERASE 1+ (NEGATIVE); NITRITE NEGATIVE (NEGATIVE); PROTEIN 1+ (NEGATIVE)
[2016-11-06 22:50] LABS: BACTERIA 2+
[2016-11-06 22:51] LABS: MUCOUS 1+; RBC 51-100 rbc/hpf (0-2); WBC 31-40 wbc/hpf (0-5)
[2016-11-07] VITALS: BP 130/81
[2016-11-07 04:07] LABS: BASO % 0.5 % (0.0-1.0); EOS # 0.3 10*3/uL (0.0-0.4); EOS % 4.4 % (1.0-4.0); HEMATOCRIT 30.4 % (37.0-47.0); HEMOGLOBIN 9.7 g/dl (12.0-16.0); LYMPH # 2.8 10*3/uL (1.3-4.4); LYMPH % 47.2 % (27.0-41.0); MEAN CELL VOLUME 90.2 fl (81.0-99.0); MEAN CORPUSCULAR HGB 28.8 pg (27.0-31.0); MEAN CORPUSCULAR HGB CONC 31.9 g/dl (33.0-37.0); MEAN PLATELET VOLUME 9.3 fl (9.6-12.3); MONO # 0.4 10*3/uL (0.1-1.0); MONO % 6.8 % (3.0-9.0); NEUT # 2.4 10*3/uL (2.3-7.9); NEUT % 40.9 % (47.0-73.0); PLATELET COUNT AUTOMATED 278 10*3/uL (130-400); RED BLOOD COUNT 3.37 10*6/uL (4.10-5.10); RED CELL DISTRI WIDTH 13.9 % (0-14.5); WHITE BLOOD COUNT 5.9 10*3/uL (4.8-10.8)
[2016-11-07 04:21] LABS: BUN 12 mg/dl (7-24); CARBON DIOXIDE 28 mmol/L (21-32); CHLORIDE 105 mmol/L (98-107); EST GLOM FILT AFRICAN AMERICAN > 60 ml/min; GLUCOSE 101 mg/dL (65-99); INTERNATIONAL NORM RATIO 1.1 (2.0-3.5); POTASSIUM 3.3 mmol/L (3.5-5.1); PROTHROMBIN TIME 11.7 SECONDS (9.0-12.4); SODIUM 141 mmol/L (136-145)
[2016-11-07 08:18] VITALS: BP 112/61
[2016-11-07 11:53] VITALS: BP 132/72
[2016-11-07 16:00] VITALS: BP 113/72
[2016-11-07 20:00] VITALS: BP 98/50
[2016-11-08] VITALS: BP 116/82
[2016-11-08 05:44] LABS: INTERNATIONAL NORM RATIO 1.1 (2.0-3.5); PROTHROMBIN TIME 11.4 SECONDS (9.0-12.4)
[2016-11-08 05:52] LABS: BUN 9 mg/dl (7-24); CARBON DIOXIDE 27 mmol/L (21-32); CHLORIDE 105 mmol/L (98-107); EST GLOM FILT AFRICAN AMERICAN > 60 ml/min; GLUCOSE 98 mg/dL (65-99); POTASSIUM 4.1 mmol/L (3.5-5.1); SODIUM 138 mmol/L (136-145)
[2016-11-08 05:55] LABS: EOS # 0.2 10*3/uL (0.0-0.4); HEMATOCRIT 31.8 % (37.0-47.0); HEMOGLOBIN 10.2 g/dl (12.0-16.0); LYMPH % 46.8 % (27.0-41.0); MEAN CELL VOLUME 91.4 fl (81.0-99.0); MEAN CORPUSCULAR HGB 29.3 pg (27.0-31.0); MEAN CORPUSCULAR HGB CONC 32.1 g/dl (33.0-37.0); MEAN PLATELET VOLUME 9.7 fl (9.6-12.3); MONO # 0.3 10*3/uL (0.1-1.0); MONO % 6.2 % (3.0-9.0); NEUT # 1.7 10*3/uL (2.3-7.9); PLATELET COUNT AUTOMATED 301 10*3/uL (130-400); RED BLOOD COUNT 3.48 10*6/uL (4.10-5.10); RED CELL DISTRI WIDTH 13.9 % (0-14.5); WHITE BLOOD COUNT 4.2 10*3/uL (4.8-10.8)
[2016-11-08 08:00] VITALS: BP 120/66
[2016-11-08 16:00] VITALS: BP 108/70; BP 120/70
[2016-11-08 20:00] VITALS: BP 114/68
[2016-11-09] VITALS: BP 110/81
[2016-11-09 05:47] LABS: INTERNATIONAL NORM RATIO 1.2 (2.0-3.5); PROTHROMBIN TIME 12.7 SECONDS (9.0-12.4)
[2016-11-09 08:00] VITALS: BP 101/66
[2016-11-09 11:35] VITALS: BP 104/78
[2016-11-09 13:20] LABS: BILIRUBIN NEGATIVE (NEGATIVE); BLOOD 1+ (NEGATIVE); CLARITY CLEAR (CLEAR); COLOR YELLOW (YELLOW); GLUCOSE NEGATIVE (NEGATIVE); KETONE NEGATIVE (NEGATIVE); LEUKO ESTERASE NEGATIVE (NEGATIVE); NITRITE NEGATIVE (NEGATIVE); PROTEIN NEGATIVE (NEGATIVE); UROBILINOGEN 0.2 E.U./dl (0.2-1.0)
[2016-11-09 13:33] LABS: URINE REFLEX COMMENT YES (NO)
[2016-11-09 16:00] VITALS: BP 109/68
[2016-11-10] VITALS: BP 114/77
[2016-11-10 07:18] LABS: INTERNATIONAL NORM RATIO 1.7 (2.0-3.5)
[2016-11-10 08:00] VITALS: BP 102/71
[2016-11-10 11:25] VITALS: BP 110/73
[2016-11-10 16:00] VITALS: BP 100/74
[2016-11-10 20:00] VITALS: BP 107/59
[2016-11-11] VITALS: BP 123/66
[2016-11-11 07:09] LABS: BASO % 0.7 % (0.0-1.0); EOS # 0.4 10*3/uL (0.0-0.4); EOS % 6.4 % (1.0-4.0); HEMATOCRIT 38.3 % (37.0-47.0); HEMOGLOBIN 12.5 g/dl (12.0-16.0); LYMPH # 2.6 10*3/uL (1.3-4.4); LYMPH % 48.3 % (27.0-41.0); MEAN CELL VOLUME 89.7 fl (81.0-99.0); MEAN CORPUSCULAR HGB 29.3 pg (27.0-31.0); MEAN CORPUSCULAR HGB CONC 32.6 g/dl (33.0-37.0); MEAN PLATELET VOLUME 9.2 fl (9.6-12.3); MONO # 0.3 10*3/uL (0.1-1.0); MONO % 5.3 % (3.0-9.0); NEUT # 2.1 10*3/uL (2.3-7.9); NEUT % 38.9 % (47.0-73.0); PLATELET COUNT AUTOMATED 379 10*3/uL (130-400); RED BLOOD COUNT 4.27 10*6/uL (4.10-5.10); RED CELL DISTRI WIDTH 14.1 % (0-14.5); WHITE BLOOD COUNT 5.4 10*3/uL (4.8-10.8)
[2016-11-11 07:38] LABS: BUN 15 mg/dl (7-24); CARBON DIOXIDE 25 mmol/L (21-32); CHLORIDE 100 mmol/L (98-107); EST GLOM FILT AFRICAN AMERICAN > 60 ml/min; GLUCOSE 94 mg/dL (65-99); SODIUM 135 mmol/L (136-145)
[2016-11-11 07:47] LABS: INTERNATIONAL NORM RATIO 2.8 (2.0-3.5); PROTHROMBIN TIME 32.1 SECONDS (9.0-12.4)
[2016-11-11 08:00] VITALS: BP 106/67
[2016-11-11] MEDS ORDERED: Coumadin7.5 MG PO (11:10)
[2016-11-11 12:00] VITALS: BP 100/63
[2016-11-11] MEDS ORDERED: PHENERGAN25 M3 PO (13:23)
[2016-11-11] MEDS ORDERED: ZOFRAN4 MG PO (13:23)
== END 2016-11-11 14:00 | disposition home or self-care (01) | DRG 300 ==
LOC: ED 18:23 → 5E 20:06 → EDHOLD 20:06 → 5E 20:09
PROVIDERS: Emergency Medicine Emergency Medical Services; Internal Medicine; Internal Medicine Hospice and Palliative Medicine
DX: I87.1 Compression of vein (principal); D68.59 Other primary thrombophilia; D70.9 Neutropenia, unspecified; G62.9 Polyneuropathy, unspecified; N39.0 Urinary tract infection, site not specified; F32.9 Major depressive disorder, single episode, unspecified; F41.1 Generalized anxiety disorder; K21.9 Gastro-esophageal reflux disease without esophagitis; E03.9 Hypothyroidism, unspecified; G43.909 Migraine, unspecified, not intractable, without status migrainosus; F17.210 Nicotine dependence, cigarettes, uncomplicated; D64.9 Anemia, unspecified; G89.29 Other chronic pain; E87.6 Hypokalemia; E78.1 Pure hyperglyceridemia; E55.9 Vitamin D deficiency, unspecified; E66.09 Other obesity due to excess calories; Z68.33 Body mass index [BMI] 33.0-33.9, adult; Z86.718 Personal history of other venous thrombosis and embolism; Z90.49 Acquired absence of other specified parts of digestive tract; Z98.51 Tubal ligation status; Z79.02 Long term (current) use of antithrombotics/antiplatelets; Z79.899 Other long term (current) drug therapy; Z88.8 Allergy status to other drugs, medicaments and biological substances; Z91.040 Latex allergy status; Z82.49 Family history of ischemic heart disease and other diseases of the circulatory system; Z83.3 Family history of diabetes mellitus

== ENCOUNTER 2016-12-18 16:40 | Emergency (ER) | payer OTHER ==
[~2016-12-18] VITALS: Wt 88.5 kg
[~2016-12-18 16:40] MED LIST changes: +Coumadin7.5 MG PO; +MIRALAX POWDER255 G1 PO; +VISTARIL25 MG PO
[2016-12-18 17:50] LABS: INTERNATIONAL NORM RATIO 4.2 (2.0-3.5)
== END 2016-12-18 18:43 | disposition home or self-care (01) ==
LOC: ED 16:40
PROVIDERS: Nurse Practitioner Family
DX: R79.1 Abnormal coagulation profile (principal); R03.0 Elevated blood-pressure reading, without diagnosis of hypertension; M79.661 Pain in right lower leg; I25.10 Atherosclerotic heart disease of native coronary artery without angina pectoris; K21.9 Gastro-esophageal reflux disease without esophagitis; E03.9 Hypothyroidism, unspecified; G43.909 Migraine, unspecified, not intractable, without status migrainosus; F17.200 Nicotine dependence, unspecified, uncomplicated; Z88.1 Allergy status to other antibiotic agents; Z91.040 Latex allergy status; Z88.8 Allergy status to other drugs, medicaments and biological substances; Z79.899 Other long term (current) drug therapy

== ENCOUNTER 2017-01-13 04:05 | Emergency (ER) | payer OTHER ==
[~2017-01-13] VITALS: Ht 162.5 cm; Wt 86.2 kg
[2017-01-13 04:11] VITALS: BP 127/93
[2017-01-13 04:50] LABS: BASO % 0.3 % (0.0-1.0); EOS # 0.3 10*3/uL (0.0-0.4); EOS % 4.5 % (1.0-4.0); HEMATOCRIT 34.2 % (37.0-47.0); HEMOGLOBIN 11.2 g/dl (12.0-16.0); LYMPH # 2.5 10*3/uL (1.3-4.4); MEAN CELL VOLUME 85.9 fl (81.0-99.0); MEAN CORPUSCULAR HGB 28.1 pg (27.0-31.0); MEAN CORPUSCULAR HGB CONC 32.7 g/dl (33.0-37.0); MEAN PLATELET VOLUME 8.9 fl (9.6-12.3); MONO # 0.4 10*3/uL (0.1-1.0); MONO % 6.6 % (3.0-9.0); NEUT # 3.2 10*3/uL (2.3-7.9); NEUT % 49.4 % (47.0-73.0); PLATELET COUNT AUTOMATED 327 10*3/uL (130-400); RED BLOOD COUNT 3.98 10*6/uL (4.10-5.10); RED CELL DISTRI WIDTH 12.8 % (0-14.5); WHITE BLOOD COUNT 6.5 10*3/uL (4.8-10.8)
[2017-01-13 05:01] LABS: INTERNATIONAL NORM RATIO 2.5 (2.0-3.5)
[2017-01-13 05:07] LABS: ALBUMIN 3.5 gm/dl (3.1-4.5); ALKALINE PHOSPHATASE 14 U/L (45-117); BUN 12 mg/dl (7-24); CHLORIDE 105 mmol/L (98-107); CREATININE 0.88 mg/dL (0.55-1.02); POTASSIUM 3.5 mmol/L (3.5-5.1); SGOT/AST 12 IU/L (3-35); SGPT/ALT 18 U/L (12-78); SODIUM 139 mmol/L (136-145); TOTAL PROTEIN 7.4 gm/dL (6.4-8.2)
[2017-01-13 05:10] LABS: TROPONIN I < 0.015 ng/ml (<0.045)
--- NOTE | 2017-01-13 06:52 | NUR ---
PT RETURNED FROM CT
--- NOTE | 2017-01-13 07:04 | NUR ---
TOOK REPORT FROM PREVIOUS NURSE, PATIENT STATED SHE HAD VERY LITTLE RELIEF FROM THE PAIN MEDICATIONS EARLIER. STILL ACKNOWLEDGES SOB, O2 SAT 97% ON RA. NO NEEDS EXPRESSED AT THIS TIME
[2017-01-13 08:24] VITALS: BP 115/76
[2017-01-13] MEDS ORDERED: BUSPIRONE HCL7.5 MG PO (10:29)
[2017-01-13] MEDS ORDERED: PROTONIX40 MG PO (10:31)
[2017-01-13] MEDS ORDERED: COUMADIN10 M1 PO (10:33)
[2017-01-13] MEDS ORDERED: COUMADIN5 M2 PO (10:34)
[2017-01-13] MEDS ORDERED: SYNTHROID25 MCG PO (10:36)
== END 2017-01-13 09:20 | disposition admitted as inpatient to this hospital (09) ==
LOC: ED 04:05 → EDHOLD 08:05 → ED 08:05
PROVIDERS: Emergency Medicine
DX: R07.9 Chest pain, unspecified (principal); R06.02 Shortness of breath; K21.9 Gastro-esophageal reflux disease without esophagitis; E03.9 Hypothyroidism, unspecified; G43.909 Migraine, unspecified, not intractable, without status migrainosus; G62.9 Polyneuropathy, unspecified; F17.200 Nicotine dependence, unspecified, uncomplicated; Z88.1 Allergy status to other antibiotic agents; Z91.040 Latex allergy status; Z88.8 Allergy status to other drugs, medicaments and biological substances; Z79.899 Other long term (current) drug therapy

== ENCOUNTER 2017-01-13 08:10 | Inpatient (IN) | payer OTHER ==
[~2017-01-13] VITALS: Ht 162.5 cm; Wt 87.3 kg
--- NOTE | ~2017-01-13 | CON ---
[place], [place] REPORT OF CONSULTATION NAME: [facility]ADILL[id number] UNIT #: [id number] ROOM: 511 DOCTOR: DARYL KAMINSKIEFRAINARMIDA BIRTHDATE: [birth year] DOS: 01/14/2017 REQUESTING PHYSICIAN: Dr. Robledo. REASON FOR CONSULTATION: Chest pain. ASSESSMENT: 1. Current presentation with chest pain, substernal, 8/10. 2. Status post pleuritic manifestation with significant worsening with deep inspiration. 3. Cough with subjective fevers and vomiting. 4. Known history of deep vein thrombosis, May-Thurner syndrome. Currently, the patient is on Coumadin and Plavix. 5. Previous intervention on the patient's iliacs with few stents placed there. No details available to me at this time. 6. Hyperlipidemia. 7. Obesity with probable obstructive sleep apnea. 8. Significant early family history of heart disease. 9. Protein C deficiency. 10. Active tobacco abuse. 11. Depression/anxiety with a known history of bipolar disease. 12. Baseline EKG consistent with right bundle-branch block with no acute changes. PLAN: 1. Cycle cardiac enzymes. 2. Check D-dimer. 3. Check CRP and sed rate. 4. Echocardiogram to be done in a.m. 5. Continue Coumadin and Plavix for now. 6. Attempt to try Toradol for pain control. 7. I will consider colchicine along with Celebrex, pending the results of the sed rate and CRP. 8. Consider sleep study. 9. Smoking cessation was advised. 10. No further cardiac testing at this time. 11. Stress test can be considered later on as an outpatient. HISTORY AND PHYSICAL: The patient is a pleasant 36-year-old female unknown to our practice, who was referred by Dr. Robledo for further evaluation and complaint of chest pain. Apparently, the patient was awake at 1:00 in the morning yesterday, started complaining of this chest pain. It is substernal. It is dull, aching, became sharp and burning. It did reach 8/10, did radiate slightly toward the right than the left, but never to the neck and jaw or the left shoulder. The patient's pain continued and the patient subsequently presented to the Emergency Room where it was given morphine with some relief. The patient never had such complaint before. She had been feeling weak, tired for the past few days. Usually is active with no regular exercise program. The patient did complain of nausea and she threw up a few times. No cold sweats. She sleeps on 1 pillow with no reported PND, orthopnea or pedal edema. Never had any [place], [place] REPORT OF CONSULTATION NAME: SOPHIE BADILLO UNIT #: [id number] ROOM: 511 DOCTOR: LEONARD BRITO MD BIRTHDATE: [birth year] complaint of symptomatic palpitation or any associated dizziness, lightheadedness or near syncope. The patient is reporting some slight decrease in appetite, but no significant weight change. PAST MEDICAL HISTORY: As detailed in my assessment. SOCIAL HISTORY: The patient continued to smoke since she was 19 years old. She smokes about 3-4 cigarettes a day. No heavy alcohol or illicit drug abuse. FAMILY HISTORY: The patient's mother had a cardiac arrest at age 42. Her elder brother has a history of DVT. Her dad at age 53 of myocardial infarction. CURRENT MEDICATIONS: Morphine, Tessalon, vitamin D, TriCor, Cymbalta, Plavix, Synthroid, BuSpar, Protonix, Carafate, Klonopin, Neurontin, Roxicodone, Restoril, Zofran, Dulcolax along with Tylenol. ALLERGIES: THE PATIENT IS ALLERGIC TO KEFLEX AND LOVENOX ALONG WITH LATEX. REVIEW OF SYSTEMS: Currently, the patient denies any headache, diplopia or blurry vision. No fever, no chills, no night sweats, no abdominal pain, no bright red blood per rectum, no tarry stools. The patient admits to joint pain, but no muscular pain. Admits to anxiety and depression. No polyuria, no polydipsia, no skin rash. Review of all other systems has been negative. PHYSICAL EXAMINATION: GENERAL: The patient is alert, oriented x3, quite pleasant, sitting up in bed in mild distress due to pain with deep inspiration only. VITAL SIGNS: Blood pressure 102/58, heart rate 63, respiratory rate of 18, temperature 98.3. HEENT: Extraocular muscles intact. Pupils equal, round and reactive to light. Conjunctivae: No pallor. Throat: No petechiae. NECK: Good upstroke. Unable to appreciate any bruit, no lymphadenopathy, no thyromegaly. HEART: S1, S2 with faint holosystolic murmur at left upper sternal border. No rub. No retrosternal heave. CHEST AND BACK: Not examined. LUNGS: Decreased air movement, but no citlalli wheezing or rales. ABDOMEN: Obese, soft, nontender, present bowel sounds, no masses, no bruits. LOWER EXTREMITIES: There is no significant edema with faint distal pulses. NEUROLOGIC: Grossly nonfocal. SKIN: No significant rash. LABORATORY DATA: Right EKG showing normal sinus rhythm with criteria for right bundle-branch block and heart rate of 60. White count is 6.9, hemoglobin 10.7, platelet count 320, potassium of 3.7, GFR more than 60%, alk phos is 15. CPK 110, CK-MB is 0.9, troponin less than 0.015. Vitamin D is 18. Normal TSH and folate. [place], [place] REPORT OF CONSULTATION NAME: ABYSOPHIE Evelia UNIT #: [id number] ROOM: 511 DOCTOR: LEONARD BRITO MD BIRTHDATE: [birth year] LEONARD BRITO MD CM:CONSTR:REPORT OF CONSULTATION 1158 01/14/17 1708 interface
[2017-01-13 09:00] VITALS: BP 125/102
[2017-01-13 09:35] VITALS: BP 125/102
[2017-01-13 10:00] VITALS: BP 116/70; BP 118/68
--- NOTE | 2017-01-13 10:00 | NUR ---
TOOK BLOOD PRESSURES IN BOTH ARMS PER DR. BURNS. RIGHT ARM BLOOD PRESSURE MANUALLY WAS 116/70. LEFT ARM BLOOD PRESSURE MANUALLY WAS 118/68.
--- NOTE | 2017-01-13 10:00 | NUR ---
A 36, admitted to 5E, under the services of LALA Hernandez DO with a diagnosis of CHEST PAIN. Chief complaint is SHORTNESS OF BREATH, CHEST PAIN. Patient arrived via bed from [place]. Monitor applied. Initial assessment completed. Vital signs taken and recorded. LALA HERNANDEZ DO notified of admission to the unit. Orders received. See assessment for past medical history, medications and allergies. Patient and/or family oriented to unit. [address] visitation policy reviewed. Clothing/patient valuable form completed. LANCE SANTANA
[2017-01-13] MEDS ORDERED: BUSPIRONE HCL7.5 MG PO (10:29)
[2017-01-13] MEDS ORDERED: PROTONIX40 MG PO (10:31)
[2017-01-13] MEDS ORDERED: COUMADIN10 M1 PO (10:33)
[2017-01-13] MEDS ORDERED: COUMADIN5 M2 PO (10:34)
[2017-01-13] MEDS ORDERED: SYNTHROID25 MCG PO (10:36)
--- NOTE | 2017-01-13 11:10 | NUR ---
PATIENT MEDICATED WITH ZOFRAN AT THIS TIME PER ORDER FOR COMPLAINTS OF NAUSEA. WILL MONITOR FOR EFFECTIVENESS.
--- NOTE | 2017-01-13 11:45 | NUR ---
PER PATIENT, MEDICATION HAS BEEN EFFECTIVE. NO FURTHER COMPLAINTS.
[2017-01-13 13:00] VITALS: BP 120/72
--- NOTE | 2017-01-13 13:30 | NUR ---
PATIENT COMPLAINING OF PAIN IN BACK AND LEGS 8/10, MEDICATED UPON REQUEST WITH ROXICODONE. WILL MONITOR FOR EFFECTIVENESS.
--- NOTE | 2017-01-13 14:20 | NUR ---
PER PATIENT, MEDICATION HAS BROUGHT PAIN DOWN TO A 4/10.
[2017-01-13 16:00] VITALS: BP 107/64
--- NOTE | 2017-01-13 16:38 | NUR ---
PT RECEIVED MORPHINE 2MG FOR PAIN LEVELED AT 8/10.
--- NOTE | 2017-01-13 16:51 | NUR ---
PT STATES PAIN HAS DECREASED TO 6/10 POST MORPHINE ADMINISTRATION.
--- NOTE | 2017-01-13 18:31 | NUR ---
PT MEDICATED WITH IV ZOFRAN PER ORDER FOR C/O NAUSEA. WILL MONITOR.
[2017-01-13 20:00] VITALS: BP 113/61
--- NOTE | 2017-01-13 21:50 | NUR ---
PT REPORTS THAT SHE IS HAVING DIFFICULTY BREATHING, POX WNL, PT BREATHING WITH NO DIFFICUILTY, NO SOB NOTICED AT TIME OF ASSESSMENT, CALL PLACED TO RESIDENT PNEUMATIC SYSTEM CONVEYOR OPERATOR, NEW ORDER FOR DUONEBS Q 4 HR PRN, INSTRUCTED PT ON NEW ORDER, CALL PLACED TO RESPIRATORY AWAITING TREATMENT, PT UPDATED
[2017-01-14] VITALS: BP 103/59
--- NOTE | 2017-01-14 02:30 | NUR ---
PT SITTING UP IN BED, WATCHING TV, USING CELL PHONE, STATES THAT PRN PAIN MEDICATION SOMEWHAT EFFECTIVE AT THIS TIME, REPORTS DECREASED PAIN LEVEL
--- NOTE | 2017-01-14 03:23 | NUR ---
PATIENT MEDICATED WITH MORPHINE AT 2333 FOR COMPLAINTS OF LEG PAIN AND ZOFRAN AT 0049 FOR COMPLAINTS OF NAUSEA WITH EFFECTIVE RESULTS NOTED. NO SIGNS OR SYMPTOMS OF DISTRESS NOTED AT THIS TIME. AROUSES TO VERBAL STIMULI. WILL CONTINUE TO MONITOR. CALL LIGHT IN REACH.
--- NOTE | 2017-01-14 05:56 | NUR ---
PATIENT MEDICATED WITH MORPHINE FOR COMPLAINTS OF PAIN WITH EFFECTIVE RESULTS NOTED. WILL CONTINUE TO MONITOR. CALL LIGHT IN REACH.
[2017-01-14 06:19] LABS: BASO % 0.3 % (0.0-1.0); EOS # 0.1 10*3/uL (0.0-0.4); EOS % 0.9 % (1.0-4.0); HEMATOCRIT 32.7 % (37.0-47.0); HEMOGLOBIN 10.7 g/dl (12.0-16.0); LYMPH % 29.3 % (27.0-41.0); MEAN CELL VOLUME 86.7 fl (81.0-99.0); MEAN CORPUSCULAR HGB 28.4 pg (27.0-31.0); MEAN CORPUSCULAR HGB CONC 32.7 g/dl (33.0-37.0); MEAN PLATELET VOLUME 9.2 fl (9.6-12.3); MONO # 0.5 10*3/uL (0.1-1.0); MONO % 6.9 % (3.0-9.0); NEUT # 4.3 10*3/uL (2.3-7.9); NEUT % 62.2 % (47.0-73.0); PLATELET COUNT AUTOMATED 320 10*3/uL (130-400); RED BLOOD COUNT 3.77 10*6/uL (4.10-5.10); RED CELL DISTRI WIDTH 12.6 % (0-14.5); WHITE BLOOD COUNT 6.9 10*3/uL (4.8-10.8)
[2017-01-14 06:43] LABS: ALBUMIN 3.3 gm/dl (3.1-4.5); ALKALINE PHOSPHATASE 15 U/L (45-117); BUN 17 mg/dl (7-24); CHLORIDE 107 mmol/L (98-107); CREATININE 0.89 mg/dL (0.55-1.02); MAGNESIUM 2.1 mg/dL (1.5-2.1); PHOSPHOROUS 2.9 mg/dL (2.5-4.9); POTASSIUM 3.7 mmol/L (3.5-5.1); SGOT/AST 18 IU/L (3-35); SGPT/ALT 17 U/L (12-78); SODIUM 140 mmol/L (136-145); TOTAL PROTEIN 6.7 gm/dL (6.4-8.2)
[2017-01-14 06:45] LABS: ACT PARTIAL THROMBO TIME 36.4 SECONDS (20.8-31.5); INTERNATIONAL NORM RATIO 2.9 (2.0-3.5)
[2017-01-14 06:50] LABS: THYROID STIM HORMONE (HS) 0.535 uIU/ml (0.358-4.75)
[2017-01-14 08:00] VITALS: BP 102/58
--- NOTE | 2017-01-14 10:00 | NUR ---
PT MEDICATED WITH MORPHINE FOR PAIN RATED 8/10.
--- NOTE | 2017-01-14 10:38 | NUR ---
PT STATES PAIN HAS BEEN REDUCED TO 6/10.
[2017-01-14 11:42] LABS: CKMB 0.9 ng/ml (0.5-3.6); CPK 110 U/L (26-192)
[2017-01-14 11:43] LABS: TROPONIN I < 0.015 ng/ml (<0.045)
--- NOTE | 2017-01-14 11:45 | NUR ---
CALLED DR BRITO TO NOTIFY HIM OF CONSULT.
[2017-01-14 12:00] VITALS: BP 123/78
--- NOTE | 2017-01-14 15:10 | NUR ---
PT STATES PAIN LEVEL 6/10 AFTER TORADOL ADMINISTRATION.
[2017-01-14 16:00] VITALS: BP 133/73
--- NOTE | 2017-01-14 17:59 | NUR ---
SPOKE TO DR BRITO REGARDING PT'S HR DROPPING INTO 40'S FOR PROLONGED PERIOD. HE ORDERED COLCHICINE 0.6MG DAILY AND CELEBREX 200MG BID.
[2017-01-14 20:00] VITALS: BP 108/59
--- NOTE | 2017-01-14 21:41 | NUR ---
PT C/O GENERALIZED PAIN AND REQUESTED PAIN MEDICATION, ADMINSITERED MORPHINE, IV PRN PER ORDERS, WILL MONITOR EFFECTS
--- NOTE | 2017-01-14 22:41 | NUR ---
RESTING IN BED REPORTS THAT PRN MORPHINE EFFECTIVE AT THIS TIME,
[2017-01-15] VITALS: BP 117/61
--- NOTE | 2017-01-15 01:27 | NUR ---
UPON ENTERING PTS ROOM, PT ON CELL PHONE, STATING GENERALIZED PAIN RATING 8.5/10, PT REQUESTED MORPHINE, ADMINISTERED MORPHINE IV PRN PER ORDERS, WILL MONITOR EFFECTS
--- NOTE | 2017-01-15 05:49 | NUR ---
PT REQUESTED PRN PAIN MEDICATION, ADMINISTERED MORPHINE IV PRN ORDERED. PT REPORTS GENERALIZED PAIN 9/ , WILL MONITOR EFFECTS
[2017-01-15 06:43] LABS: INTERNATIONAL NORM RATIO 2.8 (2.0-3.5)
[2017-01-15 08:00] VITALS: BP 110/58
--- NOTE | 2017-01-15 09:00 | NUR ---
Automation Control Technician in to talk to patient. Patient states lives at home with mom. There are no steps in the home. Physician: georgette araujo [facility] Home health services: none Patient's level of ADLs: MINIMAL ASSIST Patient has working utilities: all working DME: wheelchair, walker Follow-up physician's appointment after d/c: will be made by hospitalist nurse director upon discharge Does patient want to access PORTAL?: no Discharge plan discussed with patient, patient lives at home with her mom, states she uses a walker or wheelchair to get around, patient states she will be going back home and denies any home needs. GRIFFIN HICKMAN
--- NOTE | 2017-01-15 10:10 | NUR ---
PT RECEIVED 2.5MG OF MORPHINE FOR PAIN RATED AT 8/10.
--- NOTE | 2017-01-15 10:40 | NUR ---
PT STATES PAIN LEVEL HAS DECREASED FROM 8/10 TO 6/10 POST MORPHINE ADMINISTRATION.
[2017-01-15] MEDS ORDERED: COLCHICINE0.6 M1 PO (11:02)
[2017-01-15] MEDS ORDERED: CELECOXIB200 M1 PO (11:02)
[2017-01-15 12:00] VITALS: BP 129/78
--- NOTE | 2017-01-15 14:10 | NUR ---
PT RECEIVED MORPHINE 2.5MG DUE TO PAIN STATED 12/10.
--- NOTE | 2017-01-15 14:50 | NUR ---
PT CLAIMS PAIN LEVEL REDUCED TO 7/10 POST MORPHINE ADMINISTRATION.
--- NOTE | 2017-01-15 16:22 | NUR ---
Discharge instructions reviewed with patient/family. Patient receptive and verbalizes understanding. Instructed to arranged follow up with PCP in one week. Written instructions given to patient/family. LANCE SANTANA
[2017-01-16] MEDS ORDERED: COUMADIN7.5 M1 PO (18:02)
== END 2017-01-15 16:22 | disposition home or self-care (01) | DRG 315 ==
LOC: EDHOLD 08:10 → 5E 08:10
PROVIDERS: Internal Medicine; Internal Medicine Cardiovascular Disease; ADMIT Internal Medicine
DX: I31.9 Disease of pericardium, unspecified (principal); D68.59 Other primary thrombophilia; I87.1 Compression of vein; F31.30 Bipolar disorder, current episode depressed, mild or moderate severity, unspecified; M94.0 Chondrocostal junction syndrome [Tietze]; F41.1 Generalized anxiety disorder; K21.9 Gastro-esophageal reflux disease without esophagitis; E03.9 Hypothyroidism, unspecified; E78.5 Hyperlipidemia, unspecified; I45.10 Unspecified right bundle-branch block; E66.09 Other obesity due to excess calories; G89.4 Chronic pain syndrome; F17.210 Nicotine dependence, cigarettes, uncomplicated; G43.909 Migraine, unspecified, not intractable, without status migrainosus; G62.9 Polyneuropathy, unspecified; E78.1 Pure hyperglyceridemia; E55.9 Vitamin D deficiency, unspecified; D64.9 Anemia, unspecified; Z79.01 Long term (current) use of anticoagulants; Z86.718 Personal history of other venous thrombosis and embolism; Z90.49 Acquired absence of other specified parts of digestive tract; Z98.51 Tubal ligation status; Z82.49 Family history of ischemic heart disease and other diseases of the circulatory system; Z83.3 Family history of diabetes mellitus; Z88.1 Allergy status to other antibiotic agents; Z91.040 Latex allergy status; Z79.899 Other long term (current) drug therapy; Z68.33 Body mass index [BMI] 33.0-33.9, adult; Z71.6 Tobacco abuse counseling

== ENCOUNTER 2017-01-16 13:58 | Emergency (ER) | payer OTHER ==
[~2017-01-16] VITALS: Ht 162.5 cm; Wt 72.6 kg
[~2017-01-16 13:58] MED LIST changes: +BUSPIRONE HCL7.5 MG PO; +CELECOXIB200 M1 PO; +COLCHICINE0.6 M1 PO; +SYNTHROID25 MCG PO
[2017-01-16 14:27] LABS: BASO % 0.6 % (0.0-1.0); EOS # 0.1 10*3/uL (0.0-0.4); EOS % 1.9 % (1.0-4.0); HEMATOCRIT 33.8 % (37.0-47.0); HEMOGLOBIN 11.4 g/dl (12.0-16.0); LYMPH # 1.2 10*3/uL (1.3-4.4); LYMPH % 22.9 % (27.0-41.0); MEAN CELL VOLUME 84.9 fl (81.0-99.0); MEAN CORPUSCULAR HGB 28.6 pg (27.0-31.0); MEAN CORPUSCULAR HGB CONC 33.7 g/dl (33.0-37.0); MONO # 0.3 10*3/uL (0.1-1.0); MONO % 4.7 % (3.0-9.0); NEUT # 3.7 10*3/uL (2.3-7.9); NEUT % 69.7 % (47.0-73.0); PLATELET COUNT AUTOMATED 313 10*3/uL (130-400); RED BLOOD COUNT 3.98 10*6/uL (4.10-5.10); RED CELL DISTRI WIDTH 12.3 % (0-14.5); WHITE BLOOD COUNT 5.3 10*3/uL (4.8-10.8)
[2017-01-16 14:36] VITALS: BP 131/88
[2017-01-16 14:39] LABS: ACT PARTIAL THROMBO TIME 33.9 SECONDS (20.8-31.5); INTERNATIONAL NORM RATIO 2.4 (2.0-3.5)
[2017-01-16 14:46] LABS: ALBUMIN 3.7 gm/dl (3.1-4.5); ALKALINE PHOSPHATASE 13 U/L (45-117); BUN 15 mg/dl (7-24); CHLORIDE 108 mmol/L (98-107); CREATININE 0.85 mg/dL (0.55-1.02); SGOT/AST 15 IU/L (3-35); SGPT/ALT 17 U/L (12-78); SODIUM 142 mmol/L (136-145); TOTAL PROTEIN 7.2 gm/dL (6.4-8.2)
[2017-01-16 14:47] LABS: TROPONIN I < 0.015 ng/ml (<0.045)
[2017-01-16 15:45] VITALS: BP 132/71
[2017-01-16 17:10] VITALS: BP 123/73
--- NOTE | 2017-01-16 17:11 | NUR ---
REPORT CALLED BUT NURSE UNAVAILABLE AT THIS TIME.
[2017-01-16] MEDS ORDERED: COUMADIN7.5 M1 PO (18:02)
[2017-01-17] MEDS ORDERED: AVPAK AZITHROM250 M1 PO (17:00)
== END 2017-01-16 19:40 | disposition admitted as inpatient to this hospital (09) ==
LOC: ED 13:58 → EDHOLD 16:53 → ED 19:40
PROVIDERS: Physician Assistant
DX: R07.1 Chest pain on breathing (principal); F17.200 Nicotine dependence, unspecified, uncomplicated; Z88.1 Allergy status to other antibiotic agents; Z91.040 Latex allergy status; Z79.01 Long term (current) use of anticoagulants; Z90.49 Acquired absence of other specified parts of digestive tract

== ENCOUNTER 2017-01-16 16:19 | Inpatient (IN) | payer OTHER ==
[~2017-01-16] VITALS: Ht 162.5 cm; Wt 87.1 kg
[2017-01-16 17:50] VITALS: BP 131/88
[2017-01-16] MEDS ORDERED: COUMADIN7.5 M1 PO (18:02)
--- NOTE | 2017-01-16 18:58 | NUR ---
A 36, admitted to , under the services of BRITNI Park DO with a diagnosis of REACTIVE AIRWAY DISEASE AND CHEST PAIN. Chief complaint is SOB AND CHEST PAIN WHEN BREATHING. Patient arrived via stretcher from [place]. Monitor applied. Initial assessment completed. Vital signs taken and recorded. BRITNI PARK DO notified of admission to the unit. Orders received. See assessment for past medical history, medications and allergies. Patient and/or family oriented to unit. [facility] Clothing/patient valuable form completed. ABY RICHARDSON
--- NOTE | 2017-01-16 19:30 | NUR ---
ASSUMED CARE OF PT AT THIS TIME, RESPS EASY AND NONALABORED WITH NO S/S OF DISTRESS.
[2017-01-16 20:00] VITALS: BP 126/69
--- NOTE | 2017-01-16 20:00 | NUR ---
PT CALLED OUT TO DESK ASKING MANAGER PHARMACY TO MAKE SURE MD ORDERED PAIN MEDICATION CORRECTLY
--- NOTE | 2017-01-16 20:20 | NUR ---
PT CALLS NURSE INTO ROOM, WANTING TO KNOW IF SHE WAS ORDERED OXYGEN, EXPLAINED TO PT THAT OXYGEN WAS ORDERED WHEN NEEDED, AND PT STATES THAT HER O2 SAT HAS BEEN DROPPING. PT IS ASYPMTOMATIC AT THIS TIME, RESPS EASY AND NONLABORED WITH NO S/S OF DISTRESS, NAIL BEDS PINK WITH CARPILLARY REFILL, PT IS ACYANOTIC AT THIS. WILL CONTINUE TO MONITOR
--- NOTE | 2017-01-16 20:49 | NUR ---
PT REQUESTING SLEEPING PILL AT THIS TIME, ADMINSISTERED RESTORIL PO PRN PER ORDERS, WILL MONITOR EFFECTS
--- NOTE | 2017-01-16 20:49 | NUR ---
PT REQUESTED PRN PAIN MEDICATION, AND ASKED FOR MORPHINE STATING THAT MORPHINE IS THE ONLY THING THAT ASSITS WITH PAIN WHILE ON CELL PHONE, PT RATES GENERALIZED PAIN 9/10. PT STATES THAT SHE WOULD LIKE TO RECIEVE SAME AMOUNT OF PAIN MEDICATION PREVIOUS HOSPITALIZATION, WHICH PT STATES THAT PAIN MEDICATION AT LAST ADMISSION WAS MORPHINE 4MG IV PRN EVERY 4 HOURS, INSTRUCTED PT THAT SHE DOES HAVE PRN PAIN MEDICATION AVAILABLE WHEN NEEDED, UNDERSTANDING VOICED
--- NOTE | 2017-01-16 21:10 | NUR ---
PT PLACED CALL LIGHT ON, UPON ENTERING ROOM, PT HAS PRIVATE PULSE OX CHECKING O2 SAT AND STATES THAT SHE NEEDS A BREATHING TREATMENT, PULSE OX 94 ON RA AT THIS TIME
--- NOTE | 2017-01-16 22:52 | NUR ---
RESTING IN BED AT THIS TIME, RESPS EASY AND NONLABORED WITH NO S/S OF DISTRESS CALL LIGHT WITH IN REACH
[2017-01-17] VITALS: BP 104/59
--- NOTE | 2017-01-17 01:10 | NUR ---
PT CALLED NURSE INTO ROOM, STATING THAT SHE IS HAVING GENERALIZED PAIN, REQUESTED PRN PAIN MEDICATION, ADMINISTERED PRN MORPHINE IV ORDERED, WILL MONITOR EFFECTS. UPON ADMINISTERING MEDICATION PT ASKS THIS NURSE IF THE MD HAS CHANGED ANY OF HER MEDICATIONS, INSTRUCTED PT THAT NO CHANGES HAVE BEEN MADE AT THIS TIME, PT BECOMES AGGITATED AND STATES THAT SHE NEEDS 4MG OF MORPHINE EVERY 4 HOURS
--- NOTE | 2017-01-17 02:10 | NUR ---
PT IN BED AWAKE, STATES THAT PAIN MEDICATION NOT EFFECTIVE AND REQUESTING THAT MEDICATION BE INCREASED, WILL NOTIFY MD
--- NOTE | 2017-01-17 03:33 | NUR ---
PT C/O NAUSEA REQUESTING ZOFRAN AT THIS TIME, ADMISNISTERED ZOFRAN IV PRN PER ORDERS. PT REQUESTED TO KNOW WHO THE ONCALL MD WAS AT THIS TIME, INFORMED PT THAT WAS PHY THERAPIST, AND PT STATES THAT SHE DOES NOT KNOW THAT MD. WILL MONITOR EFFECTS
--- NOTE | 2017-01-17 03:44 | NUR ---
PT WALKED TO NURSES STATION, REQUESTED THAT THIS NURSE CALL MD HULL AND DECK REMOVER AND GET PAIN MEDICATION INCREASED, HULL AND DECK REMOVER MD STATES THAT DAYTURN MD WILL EVALUATE HER AND TO CONTINUE WITH MORPHINE ORDERED
--- NOTE | 2017-01-17 03:50 | NUR ---
UPDATED PT ON CONVERSATION WITH DR LINCOLN ,PT AGGITATED AND STATING THAT THIS IS REDICULOUS WITH HEAD DOWN LOOKING AT CELL PHONE
--- NOTE | 2017-01-17 04:51 | NUR ---
PT CALLED NURSES STATION REQUESTING PAIN MEDICATION, PT INFORMED THAT PAIN MEDICATION AVAILABLE AT 0510., PT BECAME AGGITATED AND STATED THAT PAIN MEDICATION IS DUE. INSTRUCTED PT AGAIN THAT PRN PAIN MEDICATION NOT DUE UNTIL 0510.
--- NOTE | 2017-01-17 05:12 | NUR ---
UPON ENTERING ROOM, PT ON CELL PHONE TALKING WITH SOMEONE STATING THAT SHE SHOULD BE GETTING 4MG OF MORPHINE, THAT SHE HAD 4MG IN THE ER, PT ALSO STATES THAT SHE HAS A HIGH OPIOD TOLERANCE,PT PLACES TELEPHONE CALL ON HOLD AND PT REPORTING PAIN TO THIS NURSE 12/10, STATING THAT PAIN IS IN THE LEGS, ADMINISTERED MORPHINE 2MG IV PRN PER ORDERS, WILL MONITOR EFFECTS.
[2017-01-17 06:21] LABS: BASO % 0.4 % (0.0-1.0); EOS # 0.1 10*3/uL (0.0-0.4); EOS % 2.4 % (1.0-4.0); HEMATOCRIT 29.5 % (37.0-47.0); HEMOGLOBIN 9.7 g/dl (12.0-16.0); LYMPH # 1.7 10*3/uL (1.3-4.4); LYMPH % 30.8 % (27.0-41.0); MEAN CELL VOLUME 85.5 fl (81.0-99.0); MEAN CORPUSCULAR HGB 28.1 pg (27.0-31.0); MEAN CORPUSCULAR HGB CONC 32.9 g/dl (33.0-37.0); MEAN PLATELET VOLUME 8.7 fl (9.6-12.3); MONO # 0.3 10*3/uL (0.1-1.0); MONO % 5.8 % (3.0-9.0); NEUT # 3.3 10*3/uL (2.3-7.9); NEUT % 60.2 % (47.0-73.0); PLATELET COUNT AUTOMATED 259 10*3/uL (130-400); RED BLOOD COUNT 3.45 10*6/uL (4.10-5.10); RED CELL DISTRI WIDTH 12.6 % (0-14.5); WHITE BLOOD COUNT 5.5 10*3/uL (4.8-10.8)
--- NOTE | 2017-01-17 06:31 | NUR ---
PT IN ROOM, REPORTS THAT MORPHIN ENOT EFFECTIVE AND NEEDS TO BE STRONGER, INSTRUCTED PT TO SPEAK WITH RESIDENT WHEN ROUNDING LATER IN THE MORNING, UNDERSTANDING VOICED
[2017-01-17 06:52] LABS: INTERNATIONAL NORM RATIO 2.6 (2.0-3.5)
[2017-01-17 06:55] LABS: BUN 13 mg/dl (7-24); CHLORIDE 108 mmol/L (98-107); CHOLESTEROL 177 mg/dL (<200); CREATININE 0.82 mg/dL (0.55-1.02); MAGNESIUM 2.3 mg/dL (1.5-2.1); PHOSPHOROUS 3.4 mg/dL (2.5-4.9); POTASSIUM 3.3 mmol/L (3.5-5.1); SODIUM 140 mmol/L (136-145)
[2017-01-17 06:59] LABS: HDL CHOLESTEROL 61 mg/dl (40-60); LDL CHOLESTEROL 93 mg/dL (9-159); TRIGLYCERIDES 117 mg/dl (<150); VLDL CHOLESTEROL 23 mg/dL (6-40)
[2017-01-17 08:00] VITALS: BP 128/62
--- NOTE | 2017-01-17 08:07 | NUR ---
RESPIRATORY THERAPY NOTIFIED FOR PT REQUESTING BREATHING TX.
--- NOTE | 2017-01-17 09:00 | NUR ---
Food Checkers And Cashiers Supervisor in to talk to patient. Patient states lives at home with mom. There are mo steps in the home. Physician: georgette araujo [facility] Home health services: none Patient's level of ADLs: MINIMAL ASSIST Patient has working utilities: all working DME: walker, wheelchair Follow-up physician's appointment after d/c: will be mad by hospitalist nurse director upon discharge Does patient want to access PORTAL?: no Discharge plan discussed with patient, patient lives at home with mom, uses a wheelchair or walker for ambulation, patient states she will be going back home when able and denies any home needs. GRIFFIN HICKMAN
--- NOTE | 2017-01-17 09:13 | NUR ---
PT C/O GENERALIZED CHRONIC PAIN. MORPHINE 2 MG GIVEN VIA IV AT THIS TIME. WILL MONITOR FOR EFFECTIVENESS. ALL OTHER AM MEDICATIONS TAKEN WITH EASE. PT LYING IN BED, WATCHING TV, PLEASANT MOOD. AM ASSESSMENT COMPLETE. CALL LIGHT IN REACH.
--- NOTE | 2017-01-17 09:15 | NUR ---
IN TO SEE PT AT THIS TIME.
--- NOTE | 2017-01-17 10:13 | NUR ---
MORPHINE EFFECTIVE. PT RESTING IN BED, CALL LIGHTIN REACH.
[2017-01-17 12:00] VITALS: BP 110/66
--- NOTE | 2017-01-17 13:20 | NUR ---
PT C/O PAIN. MORPHINE 2 MG ADMINISTERED VIA IV AT THIS TIME. WILL MONITOR FOR EFFECTIVENESS. CALL LIGHT IN REACH.
--- NOTE | 2017-01-17 13:25 | NUR ---
DR. POOLE IN TO SEE PT.
--- NOTE | 2017-01-17 13:47 | NUR ---
PT C/O NAUSEA. PRN ZOFRAN ADMINSITERED VIA IV. WILL MONITOR FOR EFFECTIVENESS. CALL LIGHT IN REACH.
--- NOTE | 2017-01-17 14:43 | NUR ---
SPOKE WITH DR. ALICEA ABOUT INCREASING PT MORPHINE PER HER REQUEST. DR. ALICEA TO CONTACT DR. GARDNER TO MAKE HIM AWARE. WILL MONITOR PT CHART FOR ANY NEW ORDERS. PT. AWARE.
[2017-01-17 16:00] VITALS: BP 146/88
[2017-01-17] MEDS ORDERED: AVPAK AZITHROM250 M1 PO (17:00)
--- NOTE | 2017-01-17 17:28 | NUR ---
Discharge instructions reviewed with patient/family. Patient receptive and verbalizes understanding. Follow-up care arranged. Written instructions given to patient/family. ORLANDO JOHNS
== END 2017-01-17 17:28 | disposition home or self-care (01) | DRG 206 ==
LOC: EDHOLD 16:19 → 5E 16:19
PROVIDERS: Internal Medicine Nephrology; ADMIT Internal Medicine
DX: M94.0 Chondrocostal junction syndrome [Tietze] (principal); D68.59 Other primary thrombophilia; E87.8 Other disorders of electrolyte and fluid balance, not elsewhere classified; I87.1 Compression of vein; G62.9 Polyneuropathy, unspecified; J40 Bronchitis, not specified as acute or chronic; E66.3 Overweight; D64.9 Anemia, unspecified; D72.810 Lymphocytopenia; E78.1 Pure hyperglyceridemia; E55.9 Vitamin D deficiency, unspecified; K44.9 Diaphragmatic hernia without obstruction or gangrene; K21.9 Gastro-esophageal reflux disease without esophagitis; F32.9 Major depressive disorder, single episode, unspecified; F41.1 Generalized anxiety disorder; E03.9 Hypothyroidism, unspecified; G43.909 Migraine, unspecified, not intractable, without status migrainosus; G89.29 Other chronic pain; Z95.828 Presence of other vascular implants and grafts; Z90.49 Acquired absence of other specified parts of digestive tract; Z88.1 Allergy status to other antibiotic agents; Z98.51 Tubal ligation status; Z82.49 Family history of ischemic heart disease and other diseases of the circulatory system; Z88.8 Allergy status to other drugs, medicaments and biological substances; Z83.3 Family history of diabetes mellitus; Z86.718 Personal history of other venous thrombosis and embolism; Z84.89 Family history of other specified conditions; Z91.040 Latex allergy status; Z79.899 Other long term (current) drug therapy; Z68.32 Body mass index [BMI] 32.0-32.9, adult

== ENCOUNTER 2017-02-03 13:43 | Emergency (ER) | payer OTHER ==
[~2017-02-03] VITALS: Ht 162.5 cm; Wt 85.3 kg
[~2017-02-03 13:43] MED LIST changes: +AVPAK AZITHROM250 M1 PO; +COUMADIN7.5 M1 PO
[2017-02-03 14:29] LABS: BASO % 0.3 % (0.0-1.0); EOS # 0.2 10*3/uL (0.0-0.4); EOS % 3.5 % (1.0-4.0); HEMATOCRIT 33.5 % (37.0-47.0); HEMOGLOBIN 10.9 g/dl (12.0-16.0); LYMPH # 1.2 10*3/uL (1.3-4.4); LYMPH % 19.3 % (27.0-41.0); MEAN CORPUSCULAR HGB 28.3 pg (27.0-31.0); MEAN CORPUSCULAR HGB CONC 32.5 g/dl (33.0-37.0); MEAN PLATELET VOLUME 9.3 fl (9.6-12.3); MONO # 0.4 10*3/uL (0.1-1.0); MONO % 7.3 % (3.0-9.0); NEUT # 4.2 10*3/uL (2.3-7.9); NEUT % 69.3 % (47.0-73.0); PLATELET COUNT AUTOMATED 212 10*3/uL (130-400); RED BLOOD COUNT 3.85 10*6/uL (4.10-5.10); RED CELL DISTRI WIDTH 13.5 % (0-14.5); WHITE BLOOD COUNT 6.1 10*3/uL (4.8-10.8)
[2017-02-03 14:44] LABS: BUN 16 mg/dl (7-24); CHLORIDE 104 mmol/L (98-107); CREATININE 0.69 mg/dL (0.55-1.02); POTASSIUM 4.1 mmol/L (3.5-5.1); SODIUM 138 mmol/L (136-145)
[2017-02-03 14:50] LABS: ACT PARTIAL THROMBO TIME 29.5 SECONDS (20.8-31.5); INTERNATIONAL NORM RATIO 1.5 (2.0-3.5)
== END 2017-02-03 15:25 | disposition home or self-care (01) ==
LOC: ED 13:43
PROVIDERS: Emergency Medicine
DX: S80.01XA Contusion of right knee, initial encounter (principal); S50.11XA Contusion of right forearm, initial encounter; R79.1 Abnormal coagulation profile; F17.200 Nicotine dependence, unspecified, uncomplicated; K21.9 Gastro-esophageal reflux disease without esophagitis; G89.29 Other chronic pain; F41.1 Generalized anxiety disorder; W18.30XA Fall on same level, unspecified, initial encounter; Y93.89 Activity, other specified; Y92.009 Unspecified place in unspecified non-institutional (private) residence as the place of occurrence of the external cause; Y99.8 Other external cause status; Z90.49 Acquired absence of other specified parts of digestive tract; Z93.50 Unspecified cystostomy status; Z98.51 Tubal ligation status; Z86.718 Personal history of other venous thrombosis and embolism; Z91.040 Latex allergy status

== ENCOUNTER 2017-02-07 20:28 | Emergency (ER) | payer OTHER ==
[~2017-02-07] VITALS: Ht 162.5 cm; Wt 87.1 kg
[2017-02-07 21:21] LABS: BASO % 0.6 % (0.0-1.0); EOS # 0.1 10*3/uL (0.0-0.4); EOS % 2.6 % (1.0-4.0); HEMATOCRIT 31.9 % (37.0-47.0); HEMOGLOBIN 10.5 g/dl (12.0-16.0); LYMPH # 1.8 10*3/uL (1.3-4.4); LYMPH % 32.5 % (27.0-41.0); MEAN CELL VOLUME 86.7 fl (81.0-99.0); MEAN CORPUSCULAR HGB 28.5 pg (27.0-31.0); MEAN CORPUSCULAR HGB CONC 32.9 g/dl (33.0-37.0); MEAN PLATELET VOLUME 9.5 fl (9.6-12.3); MONO # 0.4 10*3/uL (0.1-1.0); MONO % 7.7 % (3.0-9.0); NEUT # 3.1 10*3/uL (2.3-7.9); NEUT % 56.4 % (47.0-73.0); PLATELET COUNT AUTOMATED 284 10*3/uL (130-400); RED BLOOD COUNT 3.68 10*6/uL (4.10-5.10); RED CELL DISTRI WIDTH 13.4 % (0-14.5); WHITE BLOOD COUNT 5.4 10*3/uL (4.8-10.8)
[2017-02-07 21:31] LABS: BILIRUBIN NEGATIVE (NEGATIVE); BLOOD NEGATIVE (NEGATIVE); CLARITY CLEAR (CLEAR); COLOR YELLOW (YELLOW); GLUCOSE NEGATIVE (NEGATIVE); KETONE TRACE (NEGATIVE); LEUKO ESTERASE NEGATIVE (NEGATIVE); NITRITE NEGATIVE (NEGATIVE); SPECIFIC GRAVITY 1.015 (1.005-1.030)
[2017-02-07 21:38] LABS: ALBUMIN 3.6 gm/dl (3.1-4.5); ALKALINE PHOSPHATASE 14 U/L (45-117); BUN 19 mg/dl (7-24); CHLORIDE 102 mmol/L (98-107); CREATININE 0.92 mg/dL (0.55-1.02); LIPASE 90 U/L (73-393); SGOT/AST 20 IU/L (3-35); SGPT/ALT 22 U/L (12-78); SODIUM 137 mmol/L (136-145)
[2017-02-07 21:42] LABS: BACTERIA TRACE
[2017-02-07 21:43] LABS: WBC 0-2 wbc/hpf (0-5)
== END 2017-02-07 22:40 | disposition home or self-care (01) ==
LOC: ED 20:28
PROVIDERS: Physician Assistant
DX: K59.00 Constipation, unspecified (principal); R10.31 Right lower quadrant pain; F17.200 Nicotine dependence, unspecified, uncomplicated; Z90.49 Acquired absence of other specified parts of digestive tract; Z98.51 Tubal ligation status; Z98.890 Other specified postprocedural states; Z79.01 Long term (current) use of anticoagulants; Z79.899 Other long term (current) drug therapy; Z88.8 Allergy status to other drugs, medicaments and biological substances; Z88.1 Allergy status to other antibiotic agents; Z91.040 Latex allergy status; Z86.718 Personal history of other venous thrombosis and embolism

== ENCOUNTER 2017-02-14 06:59 | Emergency (ER) | payer OTHER ==
[~2017-02-14] VITALS: Ht 162.5 cm; Wt 88.5 kg
[2017-02-14 07:08] VITALS: BP 159/117
[2017-02-14 07:36] LABS: BASO % 0.5 % (0.0-1.0); EOS # 0.1 10*3/uL (0.0-0.4); EOS % 2.4 % (1.0-4.0); HEMOGLOBIN 11.1 g/dl (12.0-16.0); LYMPH # 1.5 10*3/uL (1.3-4.4); LYMPH % 27.1 % (27.0-41.0); MEAN CELL VOLUME 87.4 fl (81.0-99.0); MEAN CORPUSCULAR HGB 28.5 pg (27.0-31.0); MEAN CORPUSCULAR HGB CONC 32.6 g/dl (33.0-37.0); MEAN PLATELET VOLUME 8.9 fl (9.6-12.3); MONO # 0.4 10*3/uL (0.1-1.0); MONO % 7.4 % (3.0-9.0); NEUT # 3.4 10*3/uL (2.3-7.9); NEUT % 62.2 % (47.0-73.0); PLATELET COUNT AUTOMATED 397 10*3/uL (130-400); RED BLOOD COUNT 3.89 10*6/uL (4.10-5.10); RED CELL DISTRI WIDTH 13.5 % (0-14.5); WHITE BLOOD COUNT 5.5 10*3/uL (4.8-10.8)
--- NOTE | 2017-02-14 07:41 | NUR ---
PT REQUESTING PAIN MEDICATION DR RAZO NOTIFIED
[2017-02-14 07:45] LABS: ACT PARTIAL THROMBO TIME 31.1 SECONDS (20.8-31.5); INTERNATIONAL NORM RATIO 2.2 (2.0-3.5)
[2017-02-14 07:53] LABS: ALBUMIN 3.7 gm/dl (3.1-4.5); ALKALINE PHOSPHATASE 15 U/L (45-117); BUN 13 mg/dl (7-24); CHLORIDE 107 mmol/L (98-107); CREATININE 0.97 mg/dL (0.55-1.02); LIPASE 239 U/L (73-393); POTASSIUM 3.6 mmol/L (3.5-5.1); SGOT/AST 12 IU/L (3-35); SGPT/ALT 19 U/L (12-78); SODIUM 141 mmol/L (136-145); TOTAL PROTEIN 7.4 gm/dL (6.4-8.2)
[2017-02-14 07:55] LABS: B-hCG (QUALITATIVE) NEGATIVE (NEGATIVE)
--- NOTE | 2017-02-14 07:55 | NUR ---
PT PUT CALL LIGHT ON AGAIN REQUESTING PHENEGRAN DR RAZO NOTIFIED
--- NOTE | 2017-02-14 08:15 | NUR ---
PT REQUESTING PAIN MEDICATION AGAIN DR RAZO NOTIFIED
--- NOTE | 2017-02-14 08:26 | NUR ---
DR RAZO IN ROOM TO SPEAK WITH PT NO DISTRESS NOTED CALL LIGHT IN REACH
[2017-02-14 08:30] VITALS: BP 121/59
[2017-02-14 08:43] LABS: BILIRUBIN NEGATIVE (NEGATIVE); BLOOD 3+ (NEGATIVE); CLARITY CLOUDY (CLEAR); COLOR YELLOW (YELLOW); GLUCOSE NEGATIVE (NEGATIVE); KETONE NEGATIVE (NEGATIVE); LEUKO ESTERASE NEGATIVE (NEGATIVE); NITRITE NEGATIVE (NEGATIVE); SPECIFIC GRAVITY 1.025 (1.005-1.030); UROBILINOGEN 0.2 E.U./dl (0.2-1.0)
[2017-02-14 08:52] LABS: URINE AMPHETAMINES < 1000 (1000ng/ml); URINE BARBITURATES < 200 (200ng/ml); URINE BENZODIAZEPINES > 200 (200ng/ml); URINE CANNABINOIDS (THC) > 50 (50ng/ml); URINE COCAINE < 300 (300ng/ml); URINE METHADONE < 300 (300ng/ml); URINE OPIATES < 300 (300ng/ml)
[2017-02-14 08:53] LABS: BACTERIA 2+; RBC 41-50 rbc/hpf (0-2)
[2017-02-14 08:55] LABS: URINE PHENCYCLIDINE < 25 (25ng/ml)
--- NOTE | 2017-02-14 08:55 | NUR ---
PAIN MEDICATION GIVEN PT AWAKE ALERT ORIENTED NELSON DENIES SOB OR CHEST PAIN VITALS WNL
[2017-02-14 08:58] VITALS: BP 116/68
[2017-02-14] MEDS ORDERED: VITAMIN D31000 UNI1 PO (10:35)
[2017-02-14] MEDS ORDERED: DOXEPIN25 MG PO (10:36)
[2017-02-14] MEDS ORDERED: LATU40TA PO (10:37)
[2017-02-14] MEDS ORDERED: FENOFIBRATE145 M1 PO (10:43)
[2017-02-14] MEDS ORDERED: CHANTIX1 M1 PO (10:44)
[2017-02-14] MEDS ORDERED: PHENERGAN25 M3 PO (12:37)
[2017-02-14] MEDS ORDERED: ZOFRAN4 MG PO (12:38)
== END 2017-02-14 10:22 | disposition admitted as inpatient to this hospital (09) ==
LOC: ED 06:59 → EDHOLD 09:35 → ED 09:35
PROVIDERS: Emergency Medicine
DX: R11.2 Nausea with vomiting, unspecified (principal); G89.29 Other chronic pain; R10.11 Right upper quadrant pain; F17.200 Nicotine dependence, unspecified, uncomplicated; K21.9 Gastro-esophageal reflux disease without esophagitis; E03.9 Hypothyroidism, unspecified; Z86.718 Personal history of other venous thrombosis and embolism; Z98.51 Tubal ligation status; Z90.49 Acquired absence of other specified parts of digestive tract; Z98.890 Other specified postprocedural states; Z79.01 Long term (current) use of anticoagulants; Z79.899 Other long term (current) drug therapy; Z88.1 Allergy status to other antibiotic agents; Z91.040 Latex allergy status; Z88.8 Allergy status to other drugs, medicaments and biological substances

== ENCOUNTER 2017-02-14 09:38 | Inpatient (IN) | payer OTHER ==
[~2017-02-14] VITALS: Ht 162.5 cm; Wt 85.8 kg
[2017-02-14 10:00] VITALS: BP 120/92
--- NOTE | 2017-02-14 10:21 | NUR ---
Time: 1020 A 36 year old FEMALE admitted to under services of JOSE CARLOS FOX DO, Pt. arrived via stretcher from [place]. Chief complaint: NAUSEA AND VOMITING SINCE 0500 THIS MORNING. RUTHIE LENZ
[2017-02-14] MEDS ORDERED: VITAMIN D31000 UNI1 PO (10:35)
[2017-02-14] MEDS ORDERED: DOXEPIN25 MG PO (10:36)
[2017-02-14] MEDS ORDERED: LATU40TA PO (10:37)
[2017-02-14] MEDS ORDERED: FENOFIBRATE145 M1 PO (10:43)
[2017-02-14] MEDS ORDERED: CHANTIX1 M1 PO (10:44)
--- NOTE | 2017-02-14 10:52 | NUR ---
MED REC UPDATED/CORRECTED USING INFORMATION PROVIDED BY PATIENT'S PHARMACY, MEDS LIST ON CHART.
[2017-02-14 11:44] VITALS: BP 120/92
[2017-02-14] MEDS ORDERED: PHENERGAN25 M3 PO (12:37)
[2017-02-14] MEDS ORDERED: ZOFRAN4 MG PO (12:38)
--- NOTE | 2017-02-14 14:05 | NUR ---
PT SCOWLED WHEN PRESENTED WITH PO PAIN MEDICATION STATING THAT SHE CANNOT KEEP ANYTHING DOWN. HER EMESIS BAG SHOWS CLEAR LIQUID CONTENT.
--- NOTE | 2017-02-14 14:37 | NUR ---
PATIENT OUT IN HALLWAY WITH EMESIS BAG, STATES KEEPS THROWING UP; CLEAR WATER NOTED TO EMESIS BAG. STATES ZOFRAN INEFFECTIVE FOR NAUSEA/VOMITING, CANNOT KEEP PAIN MEDICINE DOWN, IS REQUESTING PHENERGAN FOR NAUSEA. AVE HIDALGO NOTIFIED AND ENTERING ORDERS.
--- NOTE | 2017-02-14 14:45 | NUR ---
SW SPOKE WITH PT ABOUT [facility] AND LIVING WILL. SW EXPLAINED HOW TO FILL OUT FORM AND GAVE PT A COPY. SW ADVISED PT TO ASK FOR CM /SW IF FURTHER ASSISTANCE WAS NEEDED.
--- NOTE | 2017-02-14 15:51 | NUR ---
ADMINISTERING PHENERGAN VIA INFUSION PUMP FOR NAUSEA AT THIS TIME.
[2017-02-14 16:00] VITALS: BP 111/66
--- NOTE | 2017-02-14 17:22 | NUR ---
PHENERGAN EFFECTIVE; NO FURTHER EMESIS. PATIENT C/O BILATERAL LEGS PAIN BUT STATES WILL NOT TAKE ANY PO MEDICATIONS.
--- NOTE | 2017-02-14 18:13 | NUR ---
MEDICATED FOR C/O LEG PAIN THAT RADIATES TO HER ABDOMEN AND THEN INTO HER CHEST SCALE 9/10.
[2017-02-14 20:00] VITALS: BP 118/73
--- NOTE | 2017-02-14 23:41 | NUR ---
PT HAS CALLED OUT AND USED WC TO COME OUT TO NURSES STATION ON MULTIPLE TIMES TO REQUEST DR BE NOTIFIED THAT SHE REFUSES PO MEDS AND REQUEST IV FORM OF PAIN MEDS. DR BUENO NOTIFIED. AND STATES WOULD NOT CHANGE MED. LATER CALLED BACK PT REQUEST TO SEE AND DR Katrin BURNS DID COME TO ROOM TO SEE PT AND STATES WILL LOOK INTO GETTING PO CHANGED TO IV BUT IS NOT HIS CALL AND WILL CHECK WITH ATTENDING. PT WAS MEDICATED WITH IV PHENERGAN PRIOR TO PM MANAGER INTERMEDIATE AND TOLERATED WELL. BUT IS STILL REQUESTING PAIN MEDS FOR ABD/LOWER LEG PAIN. STATES THAT IF PAIN NOT CONTROLLED WILL CAUSE ANXIETY PANIC ATTACK
[2017-02-15] VITALS: BP 133/89
--- NOTE | 2017-02-15 | NUR ---
PATIENT REFUSES THE 2200 DOSE OF PO DILAUDID.
--- NOTE | 2017-02-15 00:36 | NUR ---
PATIENT STATED SHE IS UPSET THAT SHE CAN'T GET THE MEDICATION THAT SHE WANTS. SHE STATES THAT IF HER PAIN DOES NOT GET UNDER CONTROL THAT SHE MIGHT KILL HERSELF. PATIENT STATES THAT SHE CAN'T MAKE IT THROUGH THE NIGHT. SHE STATED THAT THE BEST WAY IS FOR HER TO BE GONE. PATIENT STATES THAT SHE WANTS THE PAIN MEDICATION IV NOT PO. PATIENT STATES THAT SHE CAN NOT GO THROUGH THE [place] ALL NIGHT, THAT SHE MIGHT HAVE TO DO SOMETHING STUPID. ASSESSMENT COMPLETED B/P 133/89, HR 89, RESP 20, TEMP 97.9, SPO2 95% RA. NO EDEMA NOTED, LUNGS CLEAR. PATIENT WEEPY WITHOUT TEARS. PATIENT HAD EMESIS BAG WHERE SHE STATED THAT SHE HAD THROWN UP. BAG HAD APPROX. 300 CC OF CLEAR LIQUID WITH SMALL SPOT OF MUCUS.
--- NOTE | 2017-02-15 01:00 | NUR ---
PATIENT COMPLAINED OF PAIN IN LEGS, 11/09. STATES THAT HER LEGS FEEL LIKE THEY ARE GOING TO EXPLODE.
--- NOTE | 2017-02-15 01:55 | NUR ---
PAIN MEDICATION APPEARS TO BE EFFECTIVE, PATIENT LYING IN BED WITH EYES CLOSED.
--- NOTE | 2017-02-15 02:30 | NUR ---
24 HR chart check completed.
--- NOTE | 2017-02-15 05:35 | NUR ---
PATIENT REFUSED DILAUDID PO, MORNING MEDICATION. PATIENT LYING IN BED, SLEPT ALL EVENING.
[2017-02-15 06:09] LABS: HEMATOCRIT 29.5 % (37.0-47.0); HEMOGLOBIN 9.8 g/dl (12.0-16.0); MEAN CELL VOLUME 86.3 fl (81.0-99.0); MEAN CORPUSCULAR HGB 28.7 pg (27.0-31.0); MEAN CORPUSCULAR HGB CONC 33.2 g/dl (33.0-37.0); MEAN PLATELET VOLUME 9.3 fl (9.6-12.3); PLATELET COUNT AUTOMATED 371 10*3/uL (130-400); RED BLOOD COUNT 3.42 10*6/uL (4.10-5.10); RED CELL DISTRI WIDTH 13.3 % (0-14.5); WHITE BLOOD COUNT 6.1 10*3/uL (4.8-10.8)
[2017-02-15 06:29] LABS: ALBUMIN 3.3 gm/dl (3.1-4.5); BUN 15 mg/dl (7-24); CHLORIDE 108 mmol/L (98-107); CHOLESTEROL 167 mg/dL (<200); CREATININE 0.78 mg/dL (0.55-1.02); HDL CHOLESTEROL 58 mg/dl (40-60); LDL CHOLESTEROL 86 mg/dL (9-159); PHOSPHOROUS 3.9 mg/dL (2.5-4.9); POTASSIUM 3.9 mmol/L (3.5-5.1); SGOT/AST 27 IU/L (3-35); SGPT/ALT 23 U/L (12-78); SODIUM 139 mmol/L (136-145); TOTAL PROTEIN 6.6 gm/dL (6.4-8.2); TRIGLYCERIDES 115 mg/dl (<150); VLDL CHOLESTEROL 23 mg/dL (6-40)
[2017-02-15 06:35] LABS: ALKALINE PHOSPHATASE 13 U/L (45-117); THYROID STIM HORMONE (HS) 0.411 uIU/ml (0.358-4.75)
[2017-02-15 06:52] LABS: PLATELET SUFFICIENCY NORMAL (NORMAL); TOTAL CELLS COUNTED 100 #CELLS
[2017-02-15 07:15] LABS: INTERNATIONAL NORM RATIO 2.4 (2.0-3.5)
[2017-02-15 08:00] VITALS: BP 118/60
--- NOTE | 2017-02-15 08:10 | NUR ---
PT IS RESTING IN BED. PT COMPLAINS OF PAIN IN LOWER HALF OF BODY. STATES PO MEDICATIONS DO NOT HELP. NURSE NOTIFIED. SHAHEEN DICKSONCC
--- NOTE | 2017-02-15 08:15 | NUR ---
PT STATES PO PAIN MEDS DO NOT WORK FOR HER. STATES SHE TAKES PILLS AT HOME FOR CHRONIC PAIN BUT WE DON'T HAVE THEM HERE AND SHE HAS NO WAY OF GETTING THEM HERE. STATES THEY GAVE ME A ONE TIME DOSE OF IV MEDS LAST PM AND WITHIN 1/2 HOUR I WAS ASLEEP. EXPLAINED WE WILL TALK TO MD WHEN HE MAKES ROUNDS.
--- NOTE | 2017-02-15 08:24 | NUR ---
MESSAGE LEFT ON MIGUEL ÁNGEL WILLAMS CELL PHONE TO CALL ME BACK FOR CONSULT.
--- NOTE | 2017-02-15 09:00 | NUR ---
Policy Value Calculator in to talk to patient. Patient states lives at home with mom. There are none steps in the home. Physician: georgette araujo [facility] Home health services: none Patient's level of ADLs: MODERATE ASSIST Patient has working utilities: all working DME: wheelchair/walker Follow-up physician's appointment after d/c: will be made by hospitalist nurse director upon discharge Does patient want to access PORTAL?: no Discharge plan discussed with patient, patient lives at home with mom, uses a wheelchair or walker to get around, patient states she will be going home when able. discussed with her [facility] and she refused any services at this time. case management will follow. GRIFFIN HICKMAN
[2017-02-15 09:05] LABS: VITAMIN D, 25-HYDROXY 25.4 ng/mL (30-100)
--- NOTE | 2017-02-15 09:50 | NUR ---
met with client to assess for suicidal ideation and risk. client denies to me that she feels suicidal now, she said that she made the comment because she was in so much pain and she said that her pain meds by mouth she could not keep down, she does have a hx of bipolar and she is managed she said at dr beltran's office and she feels stable, she is not a risk for suicide, she is feeling better today, she said that she lives in chronic pain and that is why she was so upset. she can follow as an outpatient for her mental health needs.
--- NOTE | 2017-02-15 10:14 | NUR ---
PT TALKED WITH MIGUEL ÁNGEL GARCIA AND DENIES SUICIDAL IDEATION, MEDICATED FOR NAUSEA PER REQUEST [facility]
--- NOTE | 2017-02-15 10:19 | NUR ---
PT IS UP WALKING AROUND AT TIMES. IRRIATED AT TIMES BUT COOPERATIVE. AT THIS TIME PT DOES NOT HAVE THOUGHTS OF SELF HARMING, BUT WORRIED THOSE THOUGHTS WILL COME BACK WITHOUT HELP FOR PAIN. SHAHEEN DICKSONCC
--- NOTE | 2017-02-15 10:20 | NUR ---
PT STATES THAT IF SHE DOES NOT RECEIVE IV PAIN MEDS THAT SHE "MAY END UP HURTING HERSELF OR ONE OF STAFF", NURSE NOTIFIED SHAHEEN DICKSONCC
--- NOTE | 2017-02-15 10:45 | NUR ---
NAUSEA IMPROVED SHAHEEN TALBERT [facility]
--- NOTE | 2017-02-15 11:40 | NUR ---
JIM HIDALGO VISTED AND DISCUSSED PLAN OF CARE WITH PT. PT UPSET OVER NOT HAVING IV PAIN MEDS. JIM EXPLAINED REASONS FOR NOT ORDERING IV MEDS AND ABOUT PT THREATING TO HARM HERSELF OR STAFF. PT STATES I DID NOT MEAN NURSING STAFF I MEANT THE DOCTORS. JIM INFORMED PT THAT MIGUEL ÁNGEL GARCIA WOULD BE BACK TO SPEAK WITH HER. WILL CONTINUE TO MONITOR.
[2017-02-15 12:00] VITALS: BP 111/66
--- NOTE | 2017-02-15 12:12 | NUR ---
PT EMOTIONAL WAITING TO BE SEEN BY AUDIO/VISUAL MANAGER. PT STATES PAIN IS 9.5 IN LOWER HALF OF BODY. NURSE AWARE OF PAIN. SHAHEEN DICKSONCC
--- NOTE | 2017-02-15 13:00 | NUR ---
PT ASKING IF I GOT AN ORDER FOR IV PAIN MEDICATION YET. EXPLAINED TO PT THAT JIM SAID SHE WAS NOT GOING TO ORDER IT. PT AGAIN STATES IF SHE DOES NOT GET IT SHE IS GOING TO HURT THE DOCTORS.
--- NOTE | 2017-02-15 13:35 | NUR ---
PT LAYING IN BED WATCHING TV. STILL COMPLAINING OF PAIN. NO THOUGHTS OF HURTING SELF OR STAFF AT THIS TIME. SHAHEEN TALBERT [facility]
--- NOTE | 2017-02-15 13:44 | NUR ---
PT REFUSES TO TAKE 2PM PILLS INCLUDING DILAUDID. STATES IT WONT STAY DOWN. ASKING WHEN THERAPIST IS COMING BACK TO TALK TO HER. PT COMES TO DESK AND STATES SHE WANTS TO BE TRANSFERRED TO [facility].
--- NOTE | 2017-02-15 13:49 | NUR ---
PT BACK AT [facility] STATES SHE WANTS TRANSFERRED TO [facility].
--- NOTE | 2017-02-15 14:43 | NUR ---
met with client again as she was upset again and made a comment that she would kill herself or someone else, so i did come back and speak with her, she is crying and upset, but tells me it is because we are not managing her pain, she needs im not po pain meds, she wants to be transferred, we talked about her saying she is suicidal and that is a very serious statement,. she said she knows this, she has no plan and would never leave her daughter, she is not at this time suicidal or homicical. i will discuss with simran gonzalez.
--- NOTE | 2017-02-15 14:45 | NUR ---
MIGUEL ÁNGEL GARCIA BACK TO VISIT PT.
--- NOTE | 2017-02-15 15:29 | NUR ---
DISCHARGED TO HOME IN CARE OF FRIEND. INSTRUCTIONS REVIEWED WITH PT.
== END 2017-02-15 15:29 | disposition home or self-care (01) | DRG 392 ==
LOC: EDHOLD 09:38 → 4E 09:38
PROVIDERS: Registered Nurse; ADMIT Internal Medicine
DX: R11.2 Nausea with vomiting, unspecified (principal); D68.59 Other primary thrombophilia; I87.1 Compression of vein; E66.3 Overweight; M54.9 Dorsalgia, unspecified; K21.9 Gastro-esophageal reflux disease without esophagitis; E55.9 Vitamin D deficiency, unspecified; F32.9 Major depressive disorder, single episode, unspecified; F12.10 Cannabis abuse, uncomplicated; G89.4 Chronic pain syndrome; F41.1 Generalized anxiety disorder; E03.9 Hypothyroidism, unspecified; G43.909 Migraine, unspecified, not intractable, without status migrainosus; Z72.0 Tobacco use; Z71.6 Tobacco abuse counseling; Z98.62 Peripheral vascular angioplasty status; Z86.718 Personal history of other venous thrombosis and embolism; Z79.01 Long term (current) use of anticoagulants; Z90.49 Acquired absence of other specified parts of digestive tract; Z98.51 Tubal ligation status; Z82.49 Family history of ischemic heart disease and other diseases of the circulatory system; Z83.3 Family history of diabetes mellitus; Z88.1 Allergy status to other antibiotic agents; Z91.040 Latex allergy status; Z79.899 Other long term (current) drug therapy; Z68.32 Body mass index [BMI] 32.0-32.9, adult

== ENCOUNTER → 2017-03-18 | Emergency (ER) | payer OTHER ==
[~2017-03-18] VITALS: Ht 162.5 cm; Wt 89.8 kg
[~2017-03-18] MED LIST changes: +CHANTIX1 M1 PO; +Coumadin10 MG PO; +DIAZEPAM10 M1 PO; +DOXEPIN25 MG PO; +FENOFIBRATE145 M1 PO; +LATU40TA PO; +LATU40TA2 PO; +PHENADOZ R; +PROMETHAZINE25 M1 PO; +REGLAN10 M1 PO; +Synthroid,Levo25 MCG PO; +TRICOR145 M1 PO; +VITAMIN D31000 UNI1 PO; +Zofran4 MG SL
[2017-03-18 09:07] LABS: BASO % 0.3 % (0.0-1.0); EOS # 0.1 10*3/uL (0.0-0.4); EOS % 1.6 % (1.0-4.0); HEMATOCRIT 35.3 % (37.0-47.0); HEMOGLOBIN 11.8 g/dl (12.0-16.0); LYMPH # 0.9 10*3/uL (1.3-4.4); LYMPH % 14.5 % (27.0-41.0); MEAN CELL VOLUME 86.5 fl (81.0-99.0); MEAN CORPUSCULAR HGB 28.9 pg (27.0-31.0); MEAN CORPUSCULAR HGB CONC 33.4 g/dl (33.0-37.0); MEAN PLATELET VOLUME 9.4 fl (9.6-12.3); MONO # 0.4 10*3/uL (0.1-1.0); MONO % 5.9 % (3.0-9.0); NEUT # 4.8 10*3/uL (2.3-7.9); NEUT % 77.4 % (47.0-73.0); PLATELET COUNT AUTOMATED 355 10*3/uL (130-400); RED BLOOD COUNT 4.08 10*6/uL (4.10-5.10); WHITE BLOOD COUNT 6.3 10*3/uL (4.8-10.8)
[2017-03-18 09:23] LABS: ALBUMIN 3.6 gm/dl (3.1-4.5); ALKALINE PHOSPHATASE 16 U/L (45-117); BUN 10 mg/dl (7-24); CHLORIDE 102 mmol/L (98-107); CREATININE 0.66 mg/dL (0.55-1.02); LIPASE 63 U/L (73-393); POTASSIUM 3.9 mmol/L (3.5-5.1); SGOT/AST 16 IU/L (3-35); SGPT/ALT 24 U/L (12-78); SODIUM 135 mmol/L (136-145); TOTAL PROTEIN 7.8 gm/dL (6.4-8.2)
[2017-03-18 10:18] LABS: BILIRUBIN NEGATIVE (NEGATIVE); BLOOD NEGATIVE (NEGATIVE); CLARITY CLEAR (CLEAR); COLOR YELLOW (YELLOW); GLUCOSE NEGATIVE (NEGATIVE); KETONE NEGATIVE (NEGATIVE); LEUKO ESTERASE NEGATIVE (NEGATIVE); NITRITE NEGATIVE (NEGATIVE); SPECIFIC GRAVITY <= 1.005 (1.005-1.030); UROBILINOGEN 0.2 E.U./dl (0.2-1.0)
[2017-03-18 10:35] LABS: INTERNATIONAL NORM RATIO 1.3 (2.0-3.5)
[2017-03-18 10:35] LABS: WBC 0-2 wbc/hpf (0-5)
== END ==
LOC: ED 08:34
PROVIDERS: Emergency Medicine
DX: K29.70 Gastritis, unspecified, without bleeding (principal); G89.29 Other chronic pain; K21.9 Gastro-esophageal reflux disease without esophagitis; E78.00 Pure hypercholesterolemia, unspecified; F12.10 Cannabis abuse, uncomplicated; E03.9 Hypothyroidism, unspecified; G43.909 Migraine, unspecified, not intractable, without status migrainosus; F17.200 Nicotine dependence, unspecified, uncomplicated; Z98.51 Tubal ligation status; Z86.718 Personal history of other venous thrombosis and embolism; Z98.890 Other specified postprocedural states; Z90.49 Acquired absence of other specified parts of digestive tract; Z79.899 Other long term (current) drug therapy; Z79.01 Long term (current) use of anticoagulants; Z91.040 Latex allergy status; Z88.1 Allergy status to other antibiotic agents

== ENCOUNTER → 2017-04-24 | Outpatient (CLI) | payer OTHER ==
[~2017-04-24] MED LIST changes: +TAMIFLU 75MG CA75 MG PO; +ZOFRAN ODT4 MG SL
[2017-04-24 14:02] LABS: INTERNATIONAL NORM RATIO 2.5 (2.0-3.5)
== END | disposition home or self-care (01) ==
LOC: LAB 12:17 → SDC 13:00 → EDSTATUS 13:00 → IV THERAPY 13:00
PROVIDERS: Internal Medicine
DX: I82.409 Acute embolism and thrombosis of unspecified deep veins of unspecified lower extremity (principal)

== ENCOUNTER 2017-04-28 19:53 | Emergency (ER) | payer OTHER ==
[~2017-04-28] VITALS: Ht 160 cm; Wt 87.5 kg
[~2017-04-28 19:53] MED LIST changes: -TAMIFLU 75MG CA75 MG PO; -ZOFRAN ODT4 MG SL
[2017-04-28 20:33] LABS: HEMATOCRIT 34.2 % (37.0-47.0); HEMOGLOBIN 11.6 g/dl (12.0-16.0); MEAN CELL VOLUME 86.8 fl (81.0-99.0); MEAN CORPUSCULAR HGB 29.4 pg (27.0-31.0); MEAN CORPUSCULAR HGB CONC 33.9 g/dl (33.0-37.0); MEAN PLATELET VOLUME 9.5 fl (9.6-12.3); PLATELET COUNT AUTOMATED 209 10*3/uL (130-400); RED BLOOD COUNT 3.94 10*6/uL (4.10-5.10); RED CELL DISTRI WIDTH 12.8 % (0-14.5); WHITE BLOOD COUNT 2.8 10*3/uL (4.8-10.8)
[2017-04-28 20:43] LABS: INTERNATIONAL NORM RATIO 3.7 (2.0-3.5)
[2017-04-28 20:50] LABS: ALBUMIN 3.7 gm/dl (3.1-4.5); ALKALINE PHOSPHATASE 13 U/L (45-117); BUN 11 mg/dl (7-24); CHLORIDE 106 mmol/L (98-107); LIPASE 53 U/L (73-393); POTASSIUM 3.5 mmol/L (3.5-5.1); SGOT/AST 30 IU/L (3-35); SGPT/ALT 28 U/L (12-78); SODIUM 139 mmol/L (136-145); TOTAL PROTEIN 7.3 gm/dL (6.4-8.2)
[2017-04-28 21:03] LABS: ATYPICAL LYMPHS 3 % (0-0); BASOPHILS 1 % (0-1); PLATELET SUFFICIENCY NORMAL (NORMAL); TOTAL CELLS COUNTED 100 #CELLS
[2017-04-28] MEDS ORDERED: TAMIFLU 75MG CA75 MG PO (22:08)
[2017-04-28] MEDS ORDERED: ZOFRAN ODT4 MG SL (22:08)
== END 2017-04-28 22:22 | disposition home or self-care (01) ==
LOC: ED 19:53
PROVIDERS: Emergency Medicine Emergency Medical Services
DX: B34.9 Viral infection, unspecified (principal); F12.10 Cannabis abuse, uncomplicated; F17.200 Nicotine dependence, unspecified, uncomplicated; K21.9 Gastro-esophageal reflux disease without esophagitis; E78.00 Pure hypercholesterolemia, unspecified; G43.909 Migraine, unspecified, not intractable, without status migrainosus; G62.9 Polyneuropathy, unspecified; G89.29 Other chronic pain; Z86.718 Personal history of other venous thrombosis and embolism; Z98.51 Tubal ligation status; Z98.890 Other specified postprocedural states; Z79.899 Other long term (current) drug therapy; Z79.01 Long term (current) use of anticoagulants; Z88.1 Allergy status to other antibiotic agents; Z91.040 Latex allergy status

== ENCOUNTER 2017-05-16 15:04 | Emergency (ER) | payer OTHER ==
[~2017-05-16] VITALS: Wt 79.8 kg
[~2017-05-16 15:04] MED LIST changes: +TAMIFLU 75MG CA75 MG PO; +ZOFRAN ODT4 MG SL
[2017-05-16 16:05] LABS: HEMATOCRIT 34.2 % (37.0-47.0); HEMOGLOBIN 11.3 g/dl (12.0-16.0); MEAN CORPUSCULAR HGB 27.8 pg (27.0-31.0); MEAN PLATELET VOLUME 8.9 fl (9.6-12.3); PLATELET COUNT AUTOMATED 279 10*3/uL (130-400); RED BLOOD COUNT 4.07 10*6/uL (4.10-5.10); RED CELL DISTRI WIDTH 12.8 % (0-14.5); WHITE BLOOD COUNT 4.1 10*3/uL (4.8-10.8)
[2017-05-16 16:21] LABS: ALBUMIN 3.5 gm/dl (3.1-4.5); ALKALINE PHOSPHATASE 17 U/L (45-117); BUN 12 mg/dl (7-24); CHLORIDE 100 mmol/L (98-107); CREATININE 0.68 mg/dL (0.55-1.02); LIPASE 100 U/L (73-393); POTASSIUM 3.6 mmol/L (3.5-5.1); SGOT/AST 43 IU/L (3-35); SGPT/ALT 43 U/L (12-78); SODIUM 135 mmol/L (136-145); TOTAL PROTEIN 7.3 gm/dL (6.4-8.2)
[2017-05-16 16:47] LABS: PLATELET SUFFICIENCY NORMAL (NORMAL); TOTAL CELLS COUNTED 100 #CELLS
[2017-05-16] MEDS ORDERED: DICYCLOMINE HCL10 MG PO (20:15)
== END 2017-05-16 20:27 | disposition home or self-care (01) ==
LOC: ED 15:04
PROVIDERS: Physician Assistant
DX: R10.9 Unspecified abdominal pain (principal); R11.2 Nausea with vomiting, unspecified; F17.200 Nicotine dependence, unspecified, uncomplicated; Z88.1 Allergy status to other antibiotic agents; Z91.040 Latex allergy status; Z88.8 Allergy status to other drugs, medicaments and biological substances; Z79.899 Other long term (current) drug therapy

== ENCOUNTER 2017-06-13 10:20 | Emergency (ER) | payer OTHER ==
[~2017-06-13] VITALS: Ht 162.5 cm; Wt 79.4 kg
[~2017-06-13 10:20] MED LIST changes: +DICYCLOMINE HCL10 MG PO
[2017-06-13 11:13] LABS: BASO % 0.4 % (0.0-1.0); EOS # 0.1 10*3/uL (0.0-0.4); EOS % 1.9 % (1.0-4.0); HEMOGLOBIN 11.7 g/dl (12.0-16.0); LYMPH # 1.4 10*3/uL (1.3-4.4); LYMPH % 28.5 % (27.0-41.0); MEAN CORPUSCULAR HGB 28.7 pg (27.0-31.0); MEAN CORPUSCULAR HGB CONC 33.4 g/dl (33.0-37.0); MEAN PLATELET VOLUME 8.4 fl (9.6-12.3); MONO # 0.3 10*3/uL (0.1-1.0); MONO % 5.8 % (3.0-9.0); NEUT % 63.2 % (47.0-73.0); PLATELET COUNT AUTOMATED 270 10*3/uL (130-400); RED BLOOD COUNT 4.07 10*6/uL (4.10-5.10); RED CELL DISTRI WIDTH 13.2 % (0-14.5); WHITE BLOOD COUNT 4.8 10*3/uL (4.8-10.8)
[2017-06-13 11:23] LABS: ACT PARTIAL THROMBO TIME 24.2 SECONDS (20.8-31.5); INTERNATIONAL NORM RATIO 1.2 (2.0-3.5)
[2017-06-13 11:29] LABS: ALBUMIN 3.9 gm/dl (3.1-4.5); ALKALINE PHOSPHATASE 17 U/L (45-117); BUN 11 mg/dl (7-24); CHLORIDE 107 mmol/L (98-107); CREATININE 0.87 mg/dL (0.55-1.02); POTASSIUM 3.6 mmol/L (3.5-5.1); SGOT/AST 23 IU/L (3-35); SGPT/ALT 26 U/L (12-78); SODIUM 140 mmol/L (136-145); TOTAL PROTEIN 7.7 gm/dL (6.4-8.2)
== END 2017-06-13 13:20 | disposition home or self-care (01) ==
LOC: ED 10:20
PROVIDERS: Nurse Practitioner
DX: M54.5 Low back pain (principal); F17.200 Nicotine dependence, unspecified, uncomplicated; F12.10 Cannabis abuse, uncomplicated; Z98.51 Tubal ligation status; Z90.49 Acquired absence of other specified parts of digestive tract; Z79.01 Long term (current) use of anticoagulants; Z79.899 Other long term (current) drug therapy; Z91.040 Latex allergy status; Z88.1 Allergy status to other antibiotic agents; Z88.8 Allergy status to other drugs, medicaments and biological substances

== ENCOUNTER → 2017-06-22 | Outpatient (CLI) | payer OTHER ==
[2017-06-22 13:14] LABS: INTERNATIONAL NORM RATIO 5.5 (2.0-3.5)
== END | disposition home or self-care (01) ==
LOC: LAB 11:48
PROVIDERS: Internal Medicine
DX: Z45.2 Encounter for adjustment and management of vascular access device (principal); Z79.01 Long term (current) use of anticoagulants

== ENCOUNTER 2017-07-07 18:34 | Emergency (ER) | payer OTHER ==
[~2017-07-07] VITALS: Ht 160 cm; Wt 86.2 kg
== END 2017-07-07 20:31 | disposition home or self-care (01) ==
LOC: ED 18:34
DX: S80.02XA Contusion of left knee, initial encounter (principal); F17.200 Nicotine dependence, unspecified, uncomplicated; Z88.1 Allergy status to other antibiotic agents; Z91.040 Latex allergy status; Z88.8 Allergy status to other drugs, medicaments and biological substances; Z79.899 Other long term (current) drug therapy; W01.0XXA Fall on same level from slipping, tripping and stumbling without subsequent striking against object, initial encounter; Y93.89 Activity, other specified; Y92.89 Other specified places as the place of occurrence of the external cause; Y99.8 Other external cause status

== ENCOUNTER 2017-07-09 01:00 | Emergency (ER) | payer OTHER ==
[~2017-07-09] VITALS: Ht 162.5 cm; Wt 86.2 kg
[2017-07-09 01:14] LABS: BASO % 0.6 % (0.0-1.0); EOS % 0.4 % (1.0-4.0); HEMATOCRIT 35.4 % (37.0-47.0); HEMOGLOBIN 11.6 g/dl (12.0-16.0); LYMPH # 1.8 10*3/uL (1.3-4.4); LYMPH % 34.6 % (27.0-41.0); MEAN CELL VOLUME 85.3 fl (81.0-99.0); MEAN CORPUSCULAR HGB CONC 32.8 g/dl (33.0-37.0); MEAN PLATELET VOLUME 8.7 fl (9.6-12.3); MONO # 0.3 10*3/uL (0.1-1.0); MONO % 6.3 % (3.0-9.0); NEUT % 57.9 % (47.0-73.0); PLATELET COUNT AUTOMATED 361 10*3/uL (130-400); RED BLOOD COUNT 4.15 10*6/uL (4.10-5.10); RED CELL DISTRI WIDTH 13.8 % (0-14.5); WHITE BLOOD COUNT 5.1 10*3/uL (4.8-10.8)
[2017-07-09 01:30] LABS: ALBUMIN 3.8 gm/dl (3.1-4.5); ALKALINE PHOSPHATASE 15 U/L (45-117); BUN 10 mg/dl (7-24); CHLORIDE 107 mmol/L (98-107); CREATININE 0.79 mg/dL (0.55-1.02); POTASSIUM 3.4 mmol/L (3.5-5.1); SGOT/AST 21 IU/L (3-35); SGPT/ALT 23 U/L (12-78); SODIUM 141 mmol/L (136-145); TOTAL PROTEIN 7.6 gm/dL (6.4-8.2)
[2017-07-09 01:31] LABS: ACETAMINOPHEN (TYLENOL) < 2.0 ug/ml (10-30); ETHYL ALCOHOL < 3.0 mg/dl (<3)
[2017-07-09 01:39] LABS: THYROID STIM HORMONE (HS) 0.355 uIU/ml (0.358-4.75)
[2017-07-09 02:39] LABS: BILIRUBIN 1+ (NEGATIVE); BLOOD NEGATIVE (NEGATIVE); CLARITY CLOUDY (CLEAR); COLOR YELLOW (YELLOW); GLUCOSE NEGATIVE (NEGATIVE); KETONE NEGATIVE (NEGATIVE); LEUKO ESTERASE NEGATIVE (NEGATIVE); NITRITE NEGATIVE (NEGATIVE); SPECIFIC GRAVITY 1.025 (1.005-1.030)
[2017-07-09 02:48] LABS: URINE AMPHETAMINES < 1000 (1000ng/ml); URINE BARBITURATES < 200 (200ng/ml); URINE BENZODIAZEPINES > 200 (200ng/ml); URINE CANNABINOIDS (THC) < 50 (50ng/ml); URINE COCAINE < 300 (300ng/ml); URINE METHADONE < 300 (300ng/ml); URINE OPIATES > 300 (300ng/ml)
[2017-07-09 02:56] LABS: URINE PHENCYCLIDINE < 25 (25ng/ml)
[2017-07-09 03:02] LABS: BACTERIA 3+; CALCIUM OXALATE CRYSTALS 1+; EPITHELIAL CELLS 30-35; MUCOUS 2+
[2017-07-09 07:54] LABS: ACT PARTIAL THROMBO TIME 25.1 SECONDS (20.8-31.5); INTERNATIONAL NORM RATIO 1.3 (2.0-3.5)
== END 2017-07-09 20:36 | disposition home health service (06) ==
LOC: ED 01:00
PROVIDERS: Emergency Medicine; Emergency Medicine Emergency Medical Services
DX: F32.9 Major depressive disorder, single episode, unspecified (principal); F17.200 Nicotine dependence, unspecified, uncomplicated; F12.10 Cannabis abuse, uncomplicated; F41.8 Other specified anxiety disorders; G89.29 Other chronic pain; E78.00 Pure hypercholesterolemia, unspecified; E03.9 Hypothyroidism, unspecified; G43.909 Migraine, unspecified, not intractable, without status migrainosus; R45.851 Suicidal ideations; K21.9 Gastro-esophageal reflux disease without esophagitis; G62.9 Polyneuropathy, unspecified; Z98.51 Tubal ligation status; Z98.890 Other specified postprocedural states; Z90.49 Acquired absence of other specified parts of digestive tract; Z79.01 Long term (current) use of anticoagulants; Z79.899 Other long term (current) drug therapy; Z88.1 Allergy status to other antibiotic agents; Z88.8 Allergy status to other drugs, medicaments and biological substances; Z91.040 Latex allergy status; Z86.718 Personal history of other venous thrombosis and embolism

== ENCOUNTER → 2017-07-17 | Outpatient (CLI) | payer OTHER ==
[2017-07-18 12:35] LABS: INTERNATIONAL NORM RATIO 2.6 (2.0-3.5)
== END | disposition home or self-care (01) ==
LOC: LAB 14:30
PROVIDERS: Internal Medicine
DX: Z45.2 Encounter for adjustment and management of vascular access device (principal); Z79.01 Long term (current) use of anticoagulants

== ENCOUNTER → 2017-08-14 | Outpatient (CLI) | payer OTHER ==
[2017-08-14 12:47] LABS: INTERNATIONAL NORM RATIO 4.9 (2.0-3.5)
== END | disposition home or self-care (01) ==
LOC: LAB 11:23 → MEDIPORT 11:30
PROVIDERS: Internal Medicine
DX: Z51.81 Encounter for therapeutic drug level monitoring (principal); Z79.01 Long term (current) use of anticoagulants

== ENCOUNTER → 2017-09-27 | Outpatient (CLI) | payer OTHER ==
[2017-09-27 11:27] LABS: INTERNATIONAL NORM RATIO 4.8 (2.0-3.5)
== END | disposition home or self-care (01) ==
LOC: LAB 10:37 → MEDIPORT 11:00
PROVIDERS: Internal Medicine
DX: Z45.2 Encounter for adjustment and management of vascular access device (principal); Z79.01 Long term (current) use of anticoagulants

== ENCOUNTER → 2017-12-21 | Outpatient (CLI) | payer OTHER ==
[~2017-12-21] MED LIST changes: +CARAFATE1 G1 PO; +DOXYCYCLINE100 M3 PO; +FLONASE ALLERG9.9 ML NAS; +MIRALAX POWDER17 G1 PO; +OXYCODONE HYDRO10 M2 PO; +PREDNISONE20 M1 PO; +PREDNISONE50 MG PO; +PROAIR HFA8.5 GM INH; +PROCTOFOAM15 GM R; +SEROQUEL25 MG PO; +ZITHROMAX250 MG PO; +ZYRTEC10 MG PO
[2017-12-21 14:25] LABS: INTERNATIONAL NORM RATIO 4.6 (2.0-3.5)
== END | disposition home or self-care (01) ==
LOC: LAB 13:12
PROVIDERS: Internal Medicine
DX: I87.2 Venous insufficiency (chronic) (peripheral) (principal); Z79.01 Long term (current) use of anticoagulants

== ENCOUNTER → 2017-12-25 | Outpatient (CLI) | payer OTHER ==
[2017-12-25 13:47] LABS: INTERNATIONAL NORM RATIO 1.4 (2.0-3.5)
== END | disposition home or self-care (01) ==
LOC: LAB 01:04
PROVIDERS: Internal Medicine
DX: Z45.2 Encounter for adjustment and management of vascular access device (principal); Z79.01 Long term (current) use of anticoagulants

== ENCOUNTER 2018-01-15 07:57 | Emergency (ER) | payer OTHER ==
[~2018-01-15] VITALS: Wt 88.9 kg
[~2018-01-15 07:57] MED LIST changes: -CARAFATE1 G1 PO; -DOXYCYCLINE100 M3 PO; -FLONASE ALLERG9.9 ML NAS; -MIRALAX POWDER17 G1 PO; -OXYCODONE HYDRO10 M2 PO; -PREDNISONE20 M1 PO; -PREDNISONE50 MG PO; -PROAIR HFA8.5 GM INH; -PROCTOFOAM15 GM R; -SEROQUEL25 MG PO; -ZITHROMAX250 MG PO; -ZYRTEC10 MG PO
[2018-01-15] MEDS ORDERED: PROCTOFOAM15 GM R (08:30)
[2018-01-15 08:33] LABS: BASO % 0.5 % (0.0-1.0); EOS # 0.1 10*3/uL (0.0-0.4); EOS % 1.6 % (1.0-4.0); HEMATOCRIT 34.4 % (37.0-47.0); HEMOGLOBIN 11.5 g/dl (12.0-16.0); LYMPH # 1.6 10*3/uL (1.3-4.4); LYMPH % 24.6 % (27.0-41.0); MEAN CELL VOLUME 88.2 fl (81.0-99.0); MEAN CORPUSCULAR HGB 29.5 pg (27.0-31.0); MEAN CORPUSCULAR HGB CONC 33.4 g/dl (33.0-37.0); MEAN PLATELET VOLUME 9.2 fl (9.6-12.3); MONO # 0.4 10*3/uL (0.1-1.0); MONO % 5.8 % (3.0-9.0); NEUT # 4.3 10*3/uL (2.3-7.9); NEUT % 67.3 % (47.0-73.0); PLATELET COUNT AUTOMATED 268 10*3/uL (130-400); RED CELL DISTRI WIDTH 12.1 % (0-14.5); WHITE BLOOD COUNT 6.4 10*3/uL (4.8-10.8)
[2018-01-15 08:44] LABS: ACT PARTIAL THROMBO TIME 25.5 SECONDS (20.8-31.5); INTERNATIONAL NORM RATIO 1.3 (2.0-3.5)
[2018-01-15 08:47] LABS: BUN 13 mg/dl (7-24); CHLORIDE 108 mmol/L (98-107); CREATININE 0.85 mg/dL (0.55-1.02); POTASSIUM 3.7 mmol/L (3.5-5.1); SODIUM 143 mmol/L (136-145)
[2018-01-15] MEDS ORDERED: MIRALAX POWDER17 G1 PO (09:55)
[2018-02-22] MEDS ORDERED: PROAIR HFA8.5 GM INH (19:07)
[2018-02-22] MEDS ORDERED: FLONASE ALLERG9.9 ML NAS (19:07)
[2018-02-22] MEDS ORDERED: PREDNISONE20 M1 PO (19:07)
[2018-02-22] MEDS ORDERED: ZITHROMAX250 MG PO (19:07)
== END 2018-01-15 09:29 | disposition home or self-care (01) ==
LOC: ED 07:57
PROVIDERS: Emergency Medicine
DX: K64.4 Residual hemorrhoidal skin tags (principal); K59.00 Constipation, unspecified; K21.9 Gastro-esophageal reflux disease without esophagitis; E03.9 Hypothyroidism, unspecified; G43.909 Migraine, unspecified, not intractable, without status migrainosus; G62.9 Polyneuropathy, unspecified; Z88.1 Allergy status to other antibiotic agents; Z91.040 Latex allergy status; Z88.8 Allergy status to other drugs, medicaments and biological substances; Z79.899 Other long term (current) drug therapy

== ENCOUNTER 2018-01-19 19:10 | Emergency (ER) | payer OTHER ==
[~2018-01-19] VITALS: Ht 162.5 cm; Wt 88.9 kg
--- NOTE | ~2018-01-19 | EKG ---
[place], [place] ELECTROCARDIOGRAM REPORT NAME: SOPHIE BADILLO UNIT #: [id number] ROOM: DOCTOR: [facility] DRAFT REPORT BIRTHDATE: [birth year] [facility] Test Date: 2018-01-19 Test Time: 19:12:45 Pat Name: SOPHIE BADILLO Department: Room: Gender: F Glove Boarder: LAUREEN : 1980 Requested By: ALEXSANDER JOSEPH Order Number: [id number] Reading MD: Measurements Intervals [place] Rate: 77 P: 19 IN: 149 QRS: 91 QRSD: 144 T: 44 QT: 420 QTc: 476 Interpretive Statements Sinus rhythm RBBB and LPFB Baseline wander in lead(s) V5,V6 No previous ECG available for comparison CM:EKGRPT:ELECTROCARDIOGRAM REPORT 11 1636 ALEXSANDER ROCHE DRAFT REPORT ALEXSANDER JOSEPH DO
--- NOTE | ~2018-01-19 | EKG ---
[place], [place] ELECTROCARDIOGRAM REPORT NAME: SOPHIE BADILLO UNIT #: [id number] ROOM: DOCTOR: [facility] DRAFT REPORT BIRTHDATE: [birth year] [facility] Test Date: 2018-01-19 Test Time: 19:25:03 Pat Name: SOPHIE BADILLO Department: Room: Gender: F Machine Inspector: ALEJANDRINA : 1980 Requested By: ALEXSANDER JOSEPH Order Number: [id number] Reading MD: Measurements Intervals [place] Rate: 77 P: -11 MI: 139 QRS: 88 QRSD: 142 T: 42 QT: 425 QTc: 482 Interpretive Statements Sinus rhythm Right bundle branch block Baseline wander in lead(s) V2,V3,V4,V5,V6 No previous ECG available for comparison CM:EKGRPT:ELECTROCARDIOGRAM REPORT 24 1630 ALEXSANDER ROCHE DRAFT REPORT ALEXSANDER JOSEPH DO
[~2018-01-19 19:10] MED LIST changes: +MIRALAX POWDER17 G1 PO; +PROCTOFOAM15 GM R
[2018-01-19 19:11] VITALS: BP 135/70
[2018-01-19] MEDS ORDERED: SEROQUEL25 MG PO (19:35)
[2018-01-19] MEDS ORDERED: VITAMIN D31000 UNI1 PO (19:36)
[2018-01-19 19:37] LABS: BASO % 0.2 % (0.0-1.0); EOS # 0.1 10*3/uL (0.0-0.4); EOS % 0.7 % (1.0-4.0); HEMATOCRIT 35.2 % (37.0-47.0); LYMPH # 1.1 10*3/uL (1.3-4.4); MEAN CELL VOLUME 86.1 fl (81.0-99.0); MEAN CORPUSCULAR HGB 29.3 pg (27.0-31.0); MEAN CORPUSCULAR HGB CONC 34.1 g/dl (33.0-37.0); MEAN PLATELET VOLUME 9.1 fl (9.6-12.3); MONO # 0.6 10*3/uL (0.1-1.0); MONO % 7.5 % (3.0-9.0); NEUT # 6.5 10*3/uL (2.3-7.9); NEUT % 78.5 % (47.0-73.0); PLATELET COUNT AUTOMATED 267 10*3/uL (130-400); RED BLOOD COUNT 4.09 10*6/uL (4.10-5.10); RED CELL DISTRI WIDTH 12.3 % (0-14.5); WHITE BLOOD COUNT 8.3 10*3/uL (4.8-10.8)
[2018-01-19 19:48] LABS: INTERNATIONAL NORM RATIO 2.4 (2.0-3.5)
[2018-01-19 19:53] LABS: ALBUMIN 3.5 gm/dl (3.1-4.5); ALKALINE PHOSPHATASE 12 U/L (45-117); BUN 9 mg/dl (7-24); CHLORIDE 108 mmol/L (98-107); CREATININE 0.72 mg/dL (0.55-1.02); POTASSIUM 3.7 mmol/L (3.5-5.1); SGOT/AST 13 IU/L (3-35); SGPT/ALT 20 U/L (12-78); SODIUM 141 mmol/L (136-145); TOTAL PROTEIN 7.3 gm/dL (6.4-8.2)
[2018-01-19 19:55] LABS: TROPONIN I < 0.015 ng/ml (<0.045)
[2018-01-19] MEDS ORDERED: COUMADIN10 M1 PO (20:49)
[2018-01-19] MEDS ORDERED: COUMADIN5 M2 PO (20:50)
[2018-01-19] MEDS ORDERED: CARAFATE1 G1 PO (20:50)
[2018-01-19] MEDS ORDERED: OXYCODONE HYDRO10 M2 PO (20:51)
[2018-02-22] MEDS ORDERED: PREDNISONE20 M1 PO (19:07)
[2018-02-22] MEDS ORDERED: FLONASE ALLERG9.9 ML NAS (19:07)
[2018-02-22] MEDS ORDERED: ZITHROMAX250 MG PO (19:07)
[2018-02-22] MEDS ORDERED: PROAIR HFA8.5 GM INH (19:07)
== END 2018-01-19 20:39 | disposition admitted as inpatient to this hospital (09) ==
LOC: ED 19:10 → EDHOLD 20:15 → 4E 20:21 → EDHOLD 20:21 → ED 20:39
PROVIDERS: Emergency Medicine
DX: R07.89 Other chest pain (principal); R06.02 Shortness of breath; R11.2 Nausea with vomiting, unspecified; K21.9 Gastro-esophageal reflux disease without esophagitis; E03.9 Hypothyroidism, unspecified; G43.909 Migraine, unspecified, not intractable, without status migrainosus; G62.9 Polyneuropathy, unspecified; F17.200 Nicotine dependence, unspecified, uncomplicated; Z88.1 Allergy status to other antibiotic agents; Z88.8 Allergy status to other drugs, medicaments and biological substances; Z91.040 Latex allergy status; Z79.899 Other long term (current) drug therapy

== ENCOUNTER 2018-01-19 20:33 | Inpatient (IN) | payer OTHER ==
[~2018-01-19] VITALS: Ht 162.5 cm; Wt 90.1 kg
--- NOTE | ~2018-01-19 | EKG ---
[place], [place] ELECTROCARDIOGRAM REPORT NAME: SOPHIE BADILLO UNIT #: [id number] ROOM: 403 DOCTOR: THAD DRAFT REPORT BIRTHDATE: [birth year] [facility] Test Date: 2018-01-19 Test Time: 23:28:53 Pat Name: SOPHIE BADILLO Department: Room: 403 2 Gender: F Device Sales Consultant: : 1980 Requested By: ALEXSANDER JOSEPH Order Number: [id number] Reading MD: Shiva Oliveros MD Measurements Intervals [place] Rate: 57 P: -1 AR: 159 QRS: 81 QRSD: 147 T: 37 QT: 462 QTc: 450 Interpretive Statements Sinus rhythm Right bundle branch block Baseline wander in lead(s) V2 Electronically Signed On 01-21-2018 10:59:31 PDT by Shiva Oliveros MD CM:EKGRPT:ELECTROCARDIOGRAM REPORT [id number] ALEXSANDER ROCHE DRAFT REPORT ALEXSANDER JOSEPH DO
--- NOTE | ~2018-01-19 | ST ---
[place], [place] EXERCISE STRESS TEST REPORT NAME: SOPHIE BADILLO [facility] #: [id number] UNIT #: [id number] ROOM: 403 DOCTOR: HERNANDEZ POOLE MD BIRTHDATE: [birth year] DOS: 01/22/2018 LEXISCAN STRESS EKG REPORT REFERRING PHYSICIAN: Dr. Orta. INDICATION: Central chest pain. The patient underwent standard protocol Lexiscan stress EKG on 01/02/2018. The patient's baseline EKG showed normal sinus with right bundle, heart rate was 70, blood pressure was 104/70. Peak heart rate was 119 with blood pressure 108/66. The patient had no chest pain, no ischemic changes, no arrhythmias. SUMMARY OF FINDINGS: Unremarkable Lexiscan stress EKG. Please see separate report for perfusion scan imaging. HERNANDEZ POOLE MD CM:STRESS:EXERCISE STRESS TEST REPORT [id number] HERNANDEZ POOLE MD
--- NOTE | ~2018-01-19 | EKG ---
[place], [place] ELECTROCARDIOGRAM REPORT NAME: SOPHIE BADILLO UNIT #: [id number] ROOM: 403 DOCTOR: THAD DRAFT REPORT BIRTHDATE: [birth year] [facility] Test Date: 2018-01-20 Test Time: 02:29:45 Pat Name: SOPHIE BADILLO Department: Room: 403 2 Gender: F Compliance Manager: : 1980 Requested By: ALEXSANDER JOSEPH Order Number: [id number] Reading MD: Shiva Oliveros MD Measurements Intervals [place] Rate: 61 P: 15 CT: 158 QRS: 84 QRSD: 146 T: 39 QT: 453 QTc: 457 Interpretive Statements Sinus rhythm Right bundle branch block Electronically Signed On 01-21-2018 10:59:35 PDT by Shiva Oliveros MD CM:EKGRPT:ELECTROCARDIOGRAM REPORT [id number] [id number] ALEXSANDER ROCHE DRAFT REPORT ALEXSANDER JOSEPH DO
--- NOTE | ~2018-01-19 | ST ---
[place], [place] EXERCISE STRESS TEST REPORT NAME: SOPHIE BADILLO [facility] #: [id number] UNIT #: [id number] ROOM: 403 DOCTOR: VIRGILIO KAMINSKI,HERNANDEZ BIRTHDATE: [birth year] DOS: 01/21/2018 REFERRING PHYSICIAN: Dr. Orta. INDICATION: Chest pain. The patient underwent standard Neymar protocol treadmill stress test. The patient's baseline EKG showed normal sinus rhythm with a right bundle branch block and nonspecific ST-T wave changes. The patient's baseline heart rate was 77 with a blood pressure 122/66. Patient's peak heart rate was 175, blood pressure 136/78. The patient's peak heart rate of 175 represents 96% of maximum predicted. The patient experienced nonlimiting chest pain at peak. The patient exercised a total of 5 minutes. The patient had no EKG changes or arrhythmias noted. SUMMARY OF FINDINGS: 1. Intermediate risk exercise treadmill stress test with a Saavedra Treadmill score 1. 2. The patient had exertional chest pain that was nonlimiting at peak stress. The patient should be evaluated further by perfusion scan imaging given intermediate risk stress. This will be arranged. HERNANDEZ POOLE MD CM:STRESS:EXERCISE STRESS TEST REPORT [id number] HERNANDEZ POOLE MD
[2018-01-19 20:30] VITALS: BP 142/86
[~2018-01-19 20:33] MED LIST changes: +SEROQUEL25 MG PO
[2018-01-19] MEDS ORDERED: COUMADIN10 M1 PO (20:49)
[2018-01-19] MEDS ORDERED: CARAFATE1 G1 PO (20:50)
[2018-01-19] MEDS ORDERED: COUMADIN5 M2 PO (20:50)
[2018-01-19] MEDS ORDERED: OXYCODONE HYDRO10 M2 PO (20:51)
[2018-01-20] VITALS: BP 128/82
[2018-01-20 03:36] LABS: VITAMIN D, 25-HYDROXY 21.4 ng/mL (30-100)
[2018-01-20 05:53] LABS: BASO % 0.3 % (0.0-1.0); EOS # 0.1 10*3/uL (0.0-0.4); EOS % 1.3 % (1.0-4.0); HEMATOCRIT 32.2 % (37.0-47.0); HEMOGLOBIN 10.7 g/dl (12.0-16.0); LYMPH # 1.9 10*3/uL (1.3-4.4); LYMPH % 31.1 % (27.0-41.0); MEAN CELL VOLUME 87.5 fl (81.0-99.0); MEAN CORPUSCULAR HGB 29.1 pg (27.0-31.0); MEAN CORPUSCULAR HGB CONC 33.2 g/dl (33.0-37.0); MEAN PLATELET VOLUME 9.5 fl (9.6-12.3); MONO # 0.3 10*3/uL (0.1-1.0); MONO % 5.5 % (3.0-9.0); NEUT # 3.7 10*3/uL (2.3-7.9); NEUT % 61.6 % (47.0-73.0); PLATELET COUNT AUTOMATED 261 10*3/uL (130-400); RED BLOOD COUNT 3.68 10*6/uL (4.10-5.10); RED CELL DISTRI WIDTH 12.3 % (0-14.5)
[2018-01-20 06:07] LABS: ACT PARTIAL THROMBO TIME 34.3 SECONDS (20.8-31.5); BUN 11 mg/dl (7-24); CHLORIDE 106 mmol/L (98-107); CHOLESTEROL 192 mg/dL (<200); CREATININE 0.62 mg/dL (0.55-1.02); HDL CHOLESTEROL 53 mg/dl (40-60); INTERNATIONAL NORM RATIO 2.4 (2.0-3.5); LDL CHOLESTEROL 112 mg/dL (9-159); PHOSPHOROUS 3.6 mg/dL (2.5-4.9); POTASSIUM 3.6 mmol/L (3.5-5.1); SODIUM 141 mmol/L (136-145); TRIGLYCERIDES 137 mg/dl (<150); VLDL CHOLESTEROL 27 mg/dL (6-40)
[2018-01-20 06:14] LABS: THYROID STIM HORMONE (HS) 0.911 uIU/ml (0.358-4.75)
[2018-01-20 06:15] LABS: TROPONIN I < 0.015 ng/ml (<0.045)
[2018-01-20 08:00] VITALS: BP 148/96
[2018-01-20 12:00] VITALS: BP 102/59
[2018-01-20 16:00] VITALS: BP 121/51
[2018-01-20 16:36] VITALS: BP 121/51
[2018-01-20 20:00] VITALS: BP 108/64
[2018-01-21] VITALS: BP 120/73
[2018-01-21 07:15] LABS: BASO % 0.2 % (0.0-1.0); EOS # 0.1 10*3/uL (0.0-0.4); EOS % 2.1 % (1.0-4.0); HEMATOCRIT 31.8 % (37.0-47.0); HEMOGLOBIN 10.5 g/dl (12.0-16.0); LYMPH % 46.2 % (27.0-41.0); MEAN CELL VOLUME 87.8 fl (81.0-99.0); MEAN PLATELET VOLUME 9.5 fl (9.6-12.3); MONO # 0.3 10*3/uL (0.1-1.0); MONO % 7.5 % (3.0-9.0); NEUT # 1.9 10*3/uL (2.3-7.9); PLATELET COUNT AUTOMATED 267 10*3/uL (130-400); RED BLOOD COUNT 3.62 10*6/uL (4.10-5.10); RED CELL DISTRI WIDTH 12.4 % (0-14.5); WHITE BLOOD COUNT 4.3 10*3/uL (4.8-10.8)
[2018-01-21 07:28] LABS: BUN 10 mg/dl (7-24); CHLORIDE 108 mmol/L (98-107); CREATININE 0.72 mg/dL (0.55-1.02); PHOSPHOROUS 3.7 mg/dL (2.5-4.9); POTASSIUM 3.6 mmol/L (3.5-5.1); SODIUM 142 mmol/L (136-145)
[2018-01-21 08:00] VITALS: BP 110/68
[2018-01-21 10:02] LABS: INTERNATIONAL NORM RATIO 2.5 (2.0-3.5)
[2018-01-21 12:00] VITALS: BP 116/66
[2018-01-21 16:00] VITALS: BP 106/62; BP 90/52
[2018-01-21 20:00] VITALS: BP 129/52
[2018-01-22] VITALS: BP 99/57
[2018-01-22 05:00] VITALS: BP 117/75
[2018-01-22 08:00] VITALS: BP 100/58; BP 110/74
[2018-01-22 10:01] LABS: BASO % 0.6 % (0.0-1.0); EOS # 0.1 10*3/uL (0.0-0.4); EOS % 2.6 % (1.0-4.0); HEMATOCRIT 30.8 % (37.0-47.0); HEMOGLOBIN 10.1 g/dl (12.0-16.0); LYMPH # 2.1 10*3/uL (1.3-4.4); LYMPH % 38.5 % (27.0-41.0); MEAN CELL VOLUME 89.3 fl (81.0-99.0); MEAN CORPUSCULAR HGB 29.3 pg (27.0-31.0); MEAN CORPUSCULAR HGB CONC 32.8 g/dl (33.0-37.0); MEAN PLATELET VOLUME 9.3 fl (9.6-12.3); MONO # 0.4 10*3/uL (0.1-1.0); NEUT # 2.8 10*3/uL (2.3-7.9); NEUT % 51.1 % (47.0-73.0); PLATELET COUNT AUTOMATED 253 10*3/uL (130-400); RED BLOOD COUNT 3.45 10*6/uL (4.10-5.10); RED CELL DISTRI WIDTH 12.6 % (0-14.5); WHITE BLOOD COUNT 5.5 10*3/uL (4.8-10.8)
[2018-01-22 10:24] LABS: BUN 15 mg/dl (7-24); CHLORIDE 111 mmol/L (98-107); CREATININE 0.72 mg/dL (0.55-1.02); POTASSIUM 3.7 mmol/L (3.5-5.1); SODIUM 145 mmol/L (136-145)
[2018-01-22 10:38] LABS: INTERNATIONAL NORM RATIO 2.4 (2.0-3.5)
[2018-01-22 12:00] VITALS: BP 125/75
[2018-02-22] MEDS ORDERED: FLONASE ALLERG9.9 ML NAS (19:07)
[2018-02-22] MEDS ORDERED: ZITHROMAX250 MG PO (19:07)
[2018-02-22] MEDS ORDERED: PREDNISONE20 M1 PO (19:07)
[2018-02-22] MEDS ORDERED: PROAIR HFA8.5 GM INH (19:07)
== END 2018-01-22 15:22 | disposition home or self-care (01) | DRG 206 ==
LOC: 4E 20:33
PROVIDERS: Family Medicine; Internal Medicine; Student in an Organized Health Care Education/Training Program
PROC: 4A02XM4 Measurement of Cardiac Total Activity, External Approach (ICD-10-PCS; principal; 2018-01-22)
PROC: 3E073KZ Introduction of Other Diagnostic Substance into Coronary Artery, Percutaneous Approach (ICD-10-PCS; principal; 2018-01-22)
DX: M94.0 Chondrocostal junction syndrome [Tietze] (principal); D68.59 Other primary thrombophilia; I87.1 Compression of vein; K21.9 Gastro-esophageal reflux disease without esophagitis; E87.8 Other disorders of electrolyte and fluid balance, not elsewhere classified; K44.9 Diaphragmatic hernia without obstruction or gangrene; F41.1 Generalized anxiety disorder; G62.9 Polyneuropathy, unspecified; E78.1 Pure hyperglyceridemia; E55.9 Vitamin D deficiency, unspecified; M54.5 Low back pain; E66.09 Other obesity due to excess calories; D64.9 Anemia, unspecified; F12.10 Cannabis abuse, uncomplicated; G89.4 Chronic pain syndrome; I45.10 Unspecified right bundle-branch block; F32.9 Major depressive disorder, single episode, unspecified; E78.2 Mixed hyperlipidemia; E03.9 Hypothyroidism, unspecified; G43.909 Migraine, unspecified, not intractable, without status migrainosus; Z86.718 Personal history of other venous thrombosis and embolism; Z90.49 Acquired absence of other specified parts of digestive tract; Z98.51 Tubal ligation status; Z82.49 Family history of ischemic heart disease and other diseases of the circulatory system; Z83.3 Family history of diabetes mellitus; Z80.9 Family history of malignant neoplasm, unspecified; Z88.1 Allergy status to other antibiotic agents; Z72.0 Tobacco use; Z91.040 Latex allergy status; Z79.899 Other long term (current) drug therapy; Z68.34 Body mass index [BMI] 34.0-34.9, adult

== ENCOUNTER 2018-03-06 13:51 | Emergency (ER) | payer OTHER ==
[~2018-03-06] VITALS: Ht 162.5 cm; Wt 89.4 kg
[~2018-03-06 13:51] MED LIST changes: +CARAFATE1 G1 PO; +FLONASE ALLERG9.9 ML NAS; +OXYCODONE HYDRO10 M2 PO; +PREDNISONE20 M1 PO; +PROAIR HFA8.5 GM INH; +ZITHROMAX250 MG PO
[2018-03-06 14:41] LABS: BASO % 0.4 % (0.0-1.0); EOS # 0.1 10*3/uL (0.0-0.4); EOS % 0.9 % (1.0-4.0); HEMATOCRIT 35.4 % (37.0-47.0); HEMOGLOBIN 11.7 g/dl (12.0-16.0); LYMPH # 1.4 10*3/uL (1.3-4.4); LYMPH % 16.9 % (27.0-41.0); MEAN CELL VOLUME 87.2 fl (81.0-99.0); MEAN CORPUSCULAR HGB 28.8 pg (27.0-31.0); MEAN CORPUSCULAR HGB CONC 33.1 g/dl (33.0-37.0); MEAN PLATELET VOLUME 9.2 fl (9.6-12.3); MONO # 0.4 10*3/uL (0.1-1.0); MONO % 4.4 % (3.0-9.0); NEUT # 6.2 10*3/uL (2.3-7.9); NEUT % 77.3 % (47.0-73.0); PLATELET COUNT AUTOMATED 308 10*3/uL (130-400); RED BLOOD COUNT 4.06 10*6/uL (4.10-5.10); RED CELL DISTRI WIDTH 12.5 % (0-14.5)
[2018-03-06 15:03] LABS: ALBUMIN 3.6 gm/dl (3.1-4.5); ALKALINE PHOSPHATASE 16 U/L (45-117); BUN 12 mg/dl (7-24); CHLORIDE 104 mmol/L (98-107); CREATININE 0.63 mg/dL (0.55-1.02); POTASSIUM 3.7 mmol/L (3.5-5.1); SGOT/AST 13 IU/L (3-35); SGPT/ALT 16 U/L (12-78); SODIUM 140 mmol/L (136-145); TOTAL PROTEIN 7.2 gm/dL (6.4-8.2)
[2018-03-06 15:06] LABS: ACT PARTIAL THROMBO TIME 23.7 SECONDS (20.8-31.5); INTERNATIONAL NORM RATIO 1.2 (2.0-3.5)
[2018-03-06] MEDS ORDERED: DOXYCYCLINE100 M3 PO (16:36)
[2018-03-06] MEDS ORDERED: FLONASE ALLERG9.9 ML NAS (16:37)
[2018-03-06] MEDS ORDERED: PREDNISONE50 MG PO (16:37)
[2018-03-06] MEDS ORDERED: ZYRTEC10 MG PO (16:37)
== END 2018-03-06 17:01 | disposition home or self-care (01) ==
LOC: ED 13:51
PROVIDERS: Nurse Practitioner Family
DX: J01.90 Acute sinusitis, unspecified (principal); F17.200 Nicotine dependence, unspecified, uncomplicated; Z88.1 Allergy status to other antibiotic agents; Z91.040 Latex allergy status; Z88.8 Allergy status to other drugs, medicaments and biological substances; Z79.899 Other long term (current) drug therapy; Z90.49 Acquired absence of other specified parts of digestive tract

== ENCOUNTER → 2018-05-02 | Outpatient (CLI) | payer OTHER ==
[~2018-05-02] MED LIST changes: +DOXYCYCLINE100 M3 PO; +PREDNISONE50 MG PO; +ZYRTEC10 MG PO
== END | disposition home or self-care (01) ==
LOC: RAD 12:54
DX: Z02.1 Encounter for pre-employment examination (principal)

== ENCOUNTER 2018-08-27 15:25 | Inpatient (IN) | payer OTHER ==
[~2018-08-27] VITALS: Ht 162.6 cm; Wt 87.1 kg
--- NOTE | ~2018-08-27 | O ---
[place], [place] OPERATIVE NOTE NAME: SOPHIE BADILLO UNIT #: [id number] ROOM: 408 DOCTOR: JUJU ROMAN MD BIRTHDATE: [birth year] DOS: 08/28/2018 GASTROENDOSCOPIC REPORT HISTORY: The patient is a 38-year-old patient who presented with chief complaint of hematemesis, recurrent emesis, peripheral vascular disease, complex. PAST MEDICAL HISTORY: As dictated in recent consultation. PROCEDURE: Today's procedure part of investigation is panendoscopy plus biopsy. PREMEDICATION: Propofol. SCOPE: Olympus forward-viewing gastroscope Q10 video. REPORT: After putting the patient in left lateral position and application of lubricant to the scope, the scope was introduced. Thereafter, under direct visualization, I advanced through the length of esophagus without difficulty. Small hiatal hernia was noticed approximately 2.5 cm. I scanned the area of esophagogastric junction, there was no evidence of Nicole-Strange tear to blame. There was no clot. There is no bleeding. Gastric pouch was entered along the greater curvature mid gastric pouch. There is contraction of previously, apparently healed partially ulcer and healing is 98%, however. Gastric pouch was along the greater curvature advanced toward the antrum linear erosions noticed. Biopsy for documentation obtained. Duodenal bulb and second part of the duodenum, at D2 level was duodenitis, mild degree, photographed. Air was suctioned out. GI reflection of the scope confirmed with a hiatal hernia has suctioned out. The patient was extubated, tolerated the procedure well. IMPRESSION: Small hiatal hernia, gastritis, gastric erosions, duodenitis. PLAN AND DISCUSSION: PPI therapy, omeprazole 40 mg daily, Gaviscon Extra Strength 1 at bedtime and elevation of the head of bed to 10 inches, avoiding excess of Excedrin, i.e., aspirin products and follow up as outpatient. Thank you very much indeed. Furthermore, the patient is going to be bridged for the next few hours with heparin 5000 units and simultaneously is going to be started on Coumadin re-dosing from 10:00 p.m. tonight. [place], [place] OPERATIVE NOTE NAME: SOPHIE BADILLO UNIT #: [id number] ROOM: 408 DOCTOR: JUJU ROMAN MD BIRTHDATE: [birth year] JUJU ROMAN MD CM:OPRECORD:OPERATIVE NOTE [id number] 2041 JUJU ROMAN MD 09/04/18 0750 interface
--- NOTE | ~2018-08-27 | CON ---
[place], [place] REPORT OF CONSULTATION [facility]O [id number] UNIT #: [id number] ROOM: 408 DOCTOR: JUJU ROMAN MD BIRTHDATE: [birth year] DOS: 08/28/2018 HISTORY OF PRESENT ILLNESS: A 38-year-old patient who has presented with chief complaint of persistent nausea, vomiting, epigastric distress, subsequently hematemesis. The patient has been taking large volume of Excedrin for migraine cephalalgia. The patient with protein C and S deficiency and lower extremity thrombophlebitis, that is the significant part of the history. Her white blood cell at the time of admission was 4, H and H were stable at 12 and 37. INR was 4.1, this has been corrected to this morning evaluation of 2.9 under the effect of vitamin K 5 mg p.o. yesterday, which at this point of time, which is 5:00 p.m., this has been further corrected. Basic metabolic panel, electrolyte balanced, and GFR normal. Phosphorus, magnesium, and lipid panel within normal limit. Hemoglobin A1c ____. B12 and folate normal. Vitamin D deficiency has been corrected. PAST MEDICAL HISTORY: Obesity, depression, GERD, hiatal hernia, epigastric distress, protein C and S deficiency, migraine cephalalgia, vitamin D deficiency, hypothyroidism, anxiety, and depression. PAST SURGICAL HISTORY: Cholecystectomy, appendectomy, laparoscopic exploration, tubal ligation, shoulder repair, peripheral vascular disease and stenting. SOCIAL HISTORY: Smoker, nonalcohol consumer. FAMILY HISTORY: Noncontributory. ALLERGIES: LOVENOX, KEFLEX, LATEX. MEDICATIONS: Medication list has been reviewed including Plavix, pain medication, Protonix, Carafate, and Coumadin. REVIEW OF SYSTEMS: In general: HEENT: Denies double vision or blurred vision. RESPIRATORY: Denies acute shortness of breath. CARDIOVASCULAR: Denies acute chest pain. DIGESTIVE SYSTEM: Epigastric distress, dyspepsia, hematemesis, subsequently to chronic emesis. PHYSICAL EXAMINATION: GENERAL: Nontoxic patient. HEENT: Benign. NECK: Supple. No thyromegaly. CHEST: Symmetric anatomy, equal expansion. HEART: Normal sinus rhythm. No gallop, no murmur. ABDOMEN: Obese, soft. No hepato-organomegaly. EXTREMITIES: No cyanosis. No pedal edema. NEUROLOGIC: Fully alert, oriented to time, place, and person. IMPRESSION: Peripheral vascular insufficiency, lower extremity thrombosis, protein C and S deficiency, peripheral vascular stenting, gastroesophageal [place], [place] REPORT OF CONSULTATION NAME: SOPHIE BADILLO UNIT #: [id number] ROOM: 408 DOCTOR: JUJU ROMAN MD BIRTHDATE: [birth year] reflux, emesis, subsequent hematemesis, hypercoagulable syndrome, migraine cephalalgia, and hypothyroidism, all has been recognized. PLAN AND DISCUSSION: We are going to go ahead with endoscopic evaluation now that the Coumadin toxicity has been corrected and EGD in search of the etiology of hematemesis. JUJU ROMAN MD CM:CONSTR:REPORT OF CONSULTATION 1644 08/29/18 0435 interface
[2018-08-27 20:00] VITALS: BP 126/58
[2018-08-27 20:14] VITALS: BP 108/68
--- NOTE | 2018-08-27 20:14 | NUR ---
A 38, admitted to , under the services of IVETH Medrano DO with a diagnosis of GI BLEED. Chief complaint is COFFEE GROUND EMESIS, NAUSEA. Patient arrived via bed from ER. Monitor applied. Initial assessment completed. Vital signs taken and recorded. IVETH MEDRANO DO notified of admission to the unit. Orders received. See assessment for past medical history, medications and allergies. Patient and/or family oriented to unit. [address] visitation policy reviewed. Clothing/patient valuable form completed. BETH HARRIS
[2018-08-27] MEDS ORDERED: NEURONTIN600 MG PO (20:41)
[2018-08-27] MEDS ORDERED: COUMADIN10 M1 PO (20:42)
[2018-08-27] MEDS ORDERED: OXYCODONE HCL10 M1 PO (20:42)
[2018-08-27] MEDS ORDERED: LEVORPHANOL TART2 MG PO (20:42)
[2018-08-28 06:52] LABS: BASO % 0.7 % (0.0-1.0); BUN 11 mg/dl (7-24); CHLORIDE 113 mmol/L (98-107); CHOLESTEROL 150 mg/dL (<200); EOS # 0.1 10*3/uL (0.0-0.4); EOS % 2.4 % (1.0-4.0); FREE T4 1.28 ng/dl (0.76-1.46); HDL CHOLESTEROL 40 mg/dl (40-60); HEMATOCRIT 33.9 % (37.0-47.0); HEMOGLOBIN 10.9 g/dl (12.0-16.0); LDL CHOLESTEROL 88 mg/dL (9-159); LYMPH # 1.5 10*3/uL (1.3-4.4); LYMPH % 32.7 % (27.0-41.0); MEAN CORPUSCULAR HGB 28.6 pg (27.0-31.0); MEAN CORPUSCULAR HGB CONC 32.2 g/dl (33.0-37.0); MEAN PLATELET VOLUME 9.9 fl (9.6-12.3); MONO # 0.3 10*3/uL (0.1-1.0); NEUT # 2.6 10*3/uL (2.3-7.9); PHOSPHOROUS 3.1 mg/dL (2.5-4.9); PLATELET COUNT AUTOMATED 225 10*3/uL (130-400); POTASSIUM 3.5 mmol/L (3.5-5.1); RED BLOOD COUNT 3.81 10*6/uL (4.10-5.10); RED CELL DISTRI WIDTH 13.2 % (0-14.5); SODIUM 145 mmol/L (136-145); TRIGLYCERIDES 112 mg/dl (<150); VLDL CHOLESTEROL 22 mg/dL (6-40); WHITE BLOOD COUNT 4.5 10*3/uL (4.8-10.8)
[2018-08-28 06:59] LABS: THYROID STIM HORMONE (HS) 0.472 uIU/ml (0.358-4.75)
[2018-08-28 07:03] LABS: INTERNATIONAL NORM RATIO 2.9 (2.0-3.5)
[2018-08-28 08:00] VITALS: BP 144/71
[2018-08-28 08:15] LABS: VITAMIN D, 25-HYDROXY 16.8 ng/mL (30-100)
--- NOTE | 2018-08-28 08:18 | NUR ---
PT RESTING IN BED. NO DISTRESS NOTED/ SEE SHIFT ASSESSMENT WILL MONITOR
--- NOTE | 2018-08-28 09:00 | NUR ---
Setter Off in to talk to patient. Patient states lives at home with family. There are few steps in the home. Physician: georgette araujo [facility] Home health services: none Patient's level of ADLs: INDEPENDENT Patient has working utilities: all working DME: none Follow-up physician's appointment after d/c: will be made by hospitalist nurse director upon discharge Does patient want to access PORTAL?: no Discharge plan discussed with patient, patient lives at home with mom, she is independent in adls and ambulation patient patient states she will be going home when able and denies any home needs. GRIFFIN HICKMAN
[2018-08-28 12:00] VITALS: BP 121/65
[2018-08-28 16:52] VITALS: BP 122/78
[2018-08-28 17:07] VITALS: BP 127/62
[2018-08-28 17:22] VITALS: BP 122/71
--- NOTE | 2018-08-28 19:25 | NUR ---
24 HR CHART CHECK COMPLETE.
[2018-08-28 20:00] VITALS: BP 119/63
--- NOTE | 2018-08-28 21:05 | NUR ---
DR. LINCOLN NOTIFIED OF SCANT AMOUNT OF BLOOD VISUALIZED IN PATIENTS STOOL. NO NEW ORDERS.
[2018-08-29] VITALS: BP 140/83
[2018-08-29 06:17] LABS: BASO # 0.1 10*3/uL (0.0-0.1); BASO % 0.9 % (0.0-1.0); EOS # 0.2 10*3/uL (0.0-0.4); EOS % 3.9 % (1.0-4.0); HEMATOCRIT 34.4 % (37.0-47.0); HEMOGLOBIN 11.1 g/dl (12.0-16.0); LYMPH # 2.3 10*3/uL (1.3-4.4); LYMPH % 41.7 % (27.0-41.0); MEAN CELL VOLUME 87.3 fl (81.0-99.0); MEAN CORPUSCULAR HGB 28.2 pg (27.0-31.0); MEAN CORPUSCULAR HGB CONC 32.3 g/dl (33.0-37.0); MONO # 0.4 10*3/uL (0.1-1.0); MONO % 7.4 % (3.0-9.0); NEUT # 2.5 10*3/uL (2.3-7.9); NEUT % 45.9 % (47.0-73.0); PLATELET COUNT AUTOMATED 232 10*3/uL (130-400); RED BLOOD COUNT 3.94 10*6/uL (4.10-5.10); RED CELL DISTRI WIDTH 12.9 % (0-14.5); WHITE BLOOD COUNT 5.4 10*3/uL (4.8-10.8)
[2018-08-29 06:35] LABS: BUN 12 mg/dl (7-24); CHLORIDE 107 mmol/L (98-107); CREATININE 0.64 mg/dL (0.55-1.02); POTASSIUM 3.6 mmol/L (3.5-5.1); SODIUM 141 mmol/L (136-145)
[2018-08-29 06:56] LABS: INTERNATIONAL NORM RATIO 1.2 (2.0-3.5)
[2018-08-29 08:00] VITALS: BP 128/85
--- NOTE | 2018-08-29 08:14 | NUR ---
PT RESTING IN BED. NO DISTRESS NOTED. WILL MONITOR
--- NOTE | 2018-08-29 09:00 | NUR ---
case management visits with patient, patient states she will be going home when able, denies any home needs, case management will follow
--- NOTE | 2018-08-29 09:02 | NUR ---
PT REQUESTED AMD GIVEN ZOFRAN FOR C/O NAUSEA. WILL MONITOR
--- NOTE | 2018-08-29 09:41 | NUR ---
ESTEFANÍA HELPED WILL MONITOR
--- NOTE | 2018-08-29 11:00 | NUR ---
PHARM CALLED AND VERIFIED HEP BOLUS AND RATE WITH PHARMICIST
--- NOTE | 2018-08-29 11:08 | NUR ---
HEPARIN GTT STARTED ORDERED
[2018-08-29 12:00] VITALS: BP 136/83
[2018-08-29 16:00] VITALS: BP 136/87
--- NOTE | 2018-08-29 19:14 | NUR ---
HEPARIN GTT STOPPED AT THIS TIME PER POLICY
--- NOTE | 2018-08-29 19:30 | NUR ---
PT IS AWAKE AND SITTING UP IN BED. SHE STATES THAT SHE IS EXPERIENCING SOME ABDOMINAL DISCOMFORT ALONG WITH BLOATING. SHE ALSO STATES THAT SHE FEELS IF IT IS FIRM. PATIENT STATES THAT SHE HAS NOT HAD ANY OTHER EPISODES OF BLOOD IN STOOL SINCE LAST NIGHT BUT THAT SHE IS CONCERNED WITH THE ABDOMINAL DISCOMFORT D/T HER HX OF CLOTTING DISORDERS. WILL CALL PHYSICIAN AND CONTINUE TO MONITOR.
--- NOTE | 2018-08-29 19:37 | NUR ---
DR SUAREZ CALLED TO REPORT PATIENT C/O ABDOMINAL DISTENTION WITH ASSOCIATED PAIN.
--- NOTE | 2018-08-29 19:55 | NUR ---
PT ADMINISTERED PRN ZOFRAN FOR C/O MILD NAUSEA. WILL CONTINUE TO MONITOR.
[2018-08-29 20:00] VITALS: BP 118/75
--- NOTE | 2018-08-29 20:14 | NUR ---
HEPARIN GTT RESTARTED PER POLICY WITH A RATE DECREASE BY 3.
--- NOTE | 2018-08-29 20:30 | NUR ---
PRN ZOFRAN EFFECTIVE
[2018-08-29 20:44] LABS: HEMATOCRIT 38.8 % (37.0-47.0); HEMOGLOBIN 12.6 g/dl (12.0-16.0)
[2018-08-30] VITALS: BP 107/61
--- NOTE | 2018-08-30 02:35 | NUR ---
CRITICAL RESULT OF APTT 91.7 GTT SHUT OFF AT THIS TIME PER MEDICATION INSTRUCTIONS.
--- NOTE | 2018-08-30 03:35 | NUR ---
HEPARIN GTT RESTARTED AT THIS TIME. RUNNING AT 12 UNITS/HR PER POLICY
[2018-08-30 07:11] LABS: INTERNATIONAL NORM RATIO 1.1 (2.0-3.5)
[2018-08-30 08:00] VITALS: BP 128/80
--- NOTE | 2018-08-30 09:00 | NUR ---
case management visits with patient, patient will be going home when able and denies any home needs
--- NOTE | 2018-08-30 09:58 | NUR ---
APTT WITHIN THERAPEUTIC RANGE. NO CHANGE MADE TO HEPARIN DRIP AT THIS TIME.
[2018-08-30 12:00] VITALS: BP 130/78
--- NOTE | 2018-08-30 12:35 | NUR ---
PATIENT SITTING UP IN HER BED AT THIS TIME. NO COMPLAINTS EXPRESSED TO THIS NURSE. PATIENT RECEIVED ALL MEDS DIRECTED. NO S/S OF DISTRESS. HEPARIN DRIP CONTINUING TO RUN. CALL LIGHT WITHIN REACH.
--- NOTE | 2018-08-30 15:22 | NUR ---
PATIENT COMPLAINING OF ITCHING ALL OVER HER BODY, BACK, AND LEGS. GIVEN VISTARIL PER PHYSICIAN ORDER. WILL CONTINUE TO MONITOR FOR IMPROVEMENT. CALL LIGHT WITHIN REACH.
[2018-08-30 16:17] VITALS: BP 133/50
--- NOTE | 2018-08-30 19:45 | NUR ---
PATIENT IS RESTING IN BED WITH EASY AND REGULAR RESPERS ON ROOM AIR. ASSESSMENT IS COMPLETE WITH NO C/O OR S/S OF DISTRESS NOTED AT THIS TIME. BED IS LOW, LOCKED, AND CALL LIGHT IS WITHIN REACH. SEE SHIFT ASSESSMENT.
[2018-08-30 20:00] VITALS: BP 128/69
--- NOTE | 2018-08-30 21:21 | NUR ---
2200 MEDICATIONS GIVEN AT THIS TIME, PATIENT TOLERATED WELL. CALL LIGHT IS WITHIN REACH.
--- NOTE | 2018-08-30 21:45 | NUR ---
PATIENT C/O "ITCHING COMING BACK" CALL PLACED TO DR. SKINNER AT THIS TIME. HE SAID HE WOULD BE ON FLOOR TO ASSESS PATIENT.
--- NOTE | 2018-08-30 22:35 | NUR ---
ONE TIME DOSE OF BENADRYL CAPSULE AND CREAM GIVEN AT THIS TIME. PATIENT TOLERATED WELL, CALL LIGHT IS WITHIN REACH.
[2018-08-31] VITALS: BP 119/64
--- NOTE | 2018-08-31 | NUR ---
PATIENT RESTING IN BED WITH EASY AND REGULAR RESPERS. NO C/O NOTED AT THIS TIME.
--- NOTE | 2018-08-31 03:36 | NUR ---
Patient sleeping. Respirations relaxed and easy. Siderails up x2. [place] on. AUBRIE GAFFNEY
--- NOTE | 2018-08-31 05:43 | NUR ---
0600 AND 0700 MEDICATIONS GIVEN AT THIS TIME, PATIENT TOLERATED WELL. CALL LIGHT IS WITHIN REACH.
[2018-08-31 06:57] LABS: ACT PARTIAL THROMBO TIME 45.9 SECONDS (20.0-32.1); INTERNATIONAL NORM RATIO 1.2 (2.0-3.5)
[2018-08-31 08:21] VITALS: BP 124/98
--- NOTE | 2018-08-31 09:15 | NUR ---
PT C/O BEING ITCHY. DR. SHEEHAN INFORMED AND ORDERED PO BENADRYL AND TOPICAL BENADRYL. RED AREAS NOTED IN ASSESSMENT TO THIGHS AND ABDOMEN. PT STATES SHE HAS BEEN ITCHING FOR A COUPLE DAYS. DR. SHEEHAN TO COME SEE PATIENT.
[2018-08-31 11:18] VITALS: BP 120/76
[2018-08-31 16:00] VITALS: BP 126/75
--- NOTE | 2018-08-31 16:58 | NUR ---
IV SOLUMEDROL EFFECTIVE AT RELIEVING ITCHING PER PT.
[2018-08-31 20:00] VITALS: BP 128/75
--- NOTE | 2018-08-31 20:20 | NUR ---
APTT 51.1 NO CHANGE NEEDED PER PROTOCOL.
--- NOTE | 2018-08-31 20:25 | NUR ---
DR. QUINTANA CONTACTED IN REGARDS TO PATIENT C/O PURITIS. SEE NEW ORDERS.
--- NOTE | 2018-08-31 21:12 | NUR ---
CONTACTED DR. QUINTANA IN REGARDS TO PATIENT C/O CONSTIPATION. SEE NEW ORDERS.
--- NOTE | 2018-08-31 21:31 | NUR ---
2200 MEDICATIONS GIVEN AT THIS TIME WELL ONE TIME DOSE OF BENADRYL AND MIRALAX FOR C/O PURITIS AND CONSTIPATION. CALL LIGHT IS WITHIN REACH, WILL MONITOR EFFECT.
[2018-09-01] VITALS: BP 119/56
--- NOTE | 2018-09-01 03:47 | NUR ---
Patient sleeping. Respirations relaxed and easy. Siderails up x2. [place] on. AUBRIE GAFFNEY
[2018-09-01 06:34] LABS: ACT PARTIAL THROMBO TIME 68.3 SECONDS (20.0-32.1); INTERNATIONAL NORM RATIO 2.1 (2.0-3.5)
--- NOTE | 2018-09-01 07:55 | NUR ---
DISCHARGED INSTRUCTIONS REVIEWED. HEPLOCK AND BUSHLER DISCONTINUED. PRESCRIPTIONS GIVEN TO PATIENT.
[2018-09-01 08:00] VITALS: BP 125/86
[2018-09-01] MEDS ORDERED: ACID GONE TABL1 EACH PO (10:39)
[2018-09-01] MEDS ORDERED: PREDNISONE50 MG PO (10:39)
--- NOTE | 2018-09-01 11:44 | NUR ---
DISCHARGE INSTRUCTIONS REVIEWED, MEDIPORT ACCESS DISCONTINUED. PRESCRIPTIONS AND FOLLOW UP CARE DISCUSSED. PT REFUSED WHEELCHAIR AND AMBULATED OFF THE FLOOR TO HER CAR IN THE PARKING LOT.
== END 2018-09-01 11:44 | disposition home or self-care (01) | DRG 378 ==
LOC: EDHOLD 15:25 → 4E 15:25 → EDHOLD 15:38 → 4E 19:58
PROVIDERS: Family Medicine; Internal Medicine; Student in an Organized Health Care Education/Training Program; ADMIT Internal Medicine
PROC: 0DB78ZX Excision of Stomach, Pylorus, Via Natural or Artificial Opening Endoscopic, Diagnostic (ICD-10-PCS; principal; 2018-08-28)
DX: K25.4 Chronic or unspecified gastric ulcer with hemorrhage (principal); D68.59 Other primary thrombophilia; I87.1 Compression of vein; R63.4 Abnormal weight loss; E87.8 Other disorders of electrolyte and fluid balance, not elsewhere classified; F41.1 Generalized anxiety disorder; K21.9 Gastro-esophageal reflux disease without esophagitis; E03.9 Hypothyroidism, unspecified; G89.29 Other chronic pain; G43.909 Migraine, unspecified, not intractable, without status migrainosus; G62.9 Polyneuropathy, unspecified; E78.1 Pure hyperglyceridemia; E55.9 Vitamin D deficiency, unspecified; E66.9 Obesity, unspecified; F17.210 Nicotine dependence, cigarettes, uncomplicated; K29.80 Duodenitis without bleeding; D64.9 Anemia, unspecified; F32.9 Major depressive disorder, single episode, unspecified; K44.9 Diaphragmatic hernia without obstruction or gangrene; L29.9 Pruritus, unspecified; R23.3 Spontaneous ecchymoses; I73.9 Peripheral vascular disease, unspecified; T45.515A Adverse effect of anticoagulants, initial encounter; D72.819 Decreased white blood cell count, unspecified; Z86.718 Personal history of other venous thrombosis and embolism; Z90.49 Acquired absence of other specified parts of digestive tract; Z98.51 Tubal ligation status; Z95.828 Presence of other vascular implants and grafts; Y92.89 Other specified places as the place of occurrence of the external cause; Z82.49 Family history of ischemic heart disease and other diseases of the circulatory system; Z83.3 Family history of diabetes mellitus; Z80.8 Family history of malignant neoplasm of other organs or systems; Z88.1 Allergy status to other antibiotic agents; Z88.8 Allergy status to other drugs, medicaments and biological substances; Z91.040 Latex allergy status; Z79.899 Other long term (current) drug therapy; Z79.890 Hormone replacement therapy; Z79.02 Long term (current) use of antithrombotics/antiplatelets; Z68.32 Body mass index [BMI] 32.0-32.9, adult

== ENCOUNTER → 2018-09-05 | Outpatient (CLI) | payer OTHER ==
[~2018-09-05] MED LIST changes: +ACID GONE TABL1 EACH PO
[2018-09-05 20:54] LABS: INTERNATIONAL NORM RATIO 2.3 (2.0-3.5)
== END | disposition home or self-care (01) ==
LOC: LAB 20:08
PROVIDERS: Internal Medicine
DX: R79.1 Abnormal coagulation profile (principal)

== ENCOUNTER → 2018-10-19 | Outpatient (CLI) | payer OTHER | END | disposition home or self-care (01) | LOC: MEDIPORT 14:52 | PROVIDERS: Internal Medicine | DX: I82.409 Acute embolism and thrombosis of unspecified deep veins of unspecified lower extremity (principal) ==

== ENCOUNTER → 2018-12-17 | Outpatient (CLI) | payer OTHER ==
--- NOTE | 2018-12-17 22:00 | NUR ---
PT. PLACED IN ROOM 427 FOR OUTPATIENT LAB DRAW FROM [facility]. MEDIPORT ACCESSED BY JUANJOSE SHEEHAN PER PROTOCAL AND LABS WERE DRAWN. MEDIPORT DEACCESSED AND PRESSURE DRESSING APPLIED TO SITE. PT. DID WELL AND WENT HOME.
[2018-12-17 22:30] LABS: INTERNATIONAL NORM RATIO 1.7 (2.0-3.5)
== END | disposition home or self-care (01) ==
LOC: LAB 20:00
PROVIDERS: Internal Medicine
DX: Z45.2 Encounter for adjustment and management of vascular access device (principal); I82.409 Acute embolism and thrombosis of unspecified deep veins of unspecified lower extremity

== ENCOUNTER → 2018-12-30 | Outpatient (CLI) | payer OTHER | END | disposition home or self-care (01) | LOC: LAB 19:59 | PROVIDERS: Internal Medicine | DX: I82.409 Acute embolism and thrombosis of unspecified deep veins of unspecified lower extremity (principal) ==

== ENCOUNTER 2019-01-23 20:14 | Emergency (ER) | payer OTHER ==
[~2019-01-23] VITALS: Ht 162.5 cm; Wt 82.6 kg
== END 2019-01-23 21:04 | disposition home or self-care (01) ==
LOC: ED 20:14
DX: T82.594A Other mechanical complication of infusion catheter, initial encounter (principal); Z51.81 Encounter for therapeutic drug level monitoring; F17.210 Nicotine dependence, cigarettes, uncomplicated; Z88.1 Allergy status to other antibiotic agents; Z88.8 Allergy status to other drugs, medicaments and biological substances; Z91.040 Latex allergy status; Z79.899 Other long term (current) drug therapy; Z79.01 Long term (current) use of anticoagulants; Z90.49 Acquired absence of other specified parts of digestive tract; Y84.9 Medical procedure, unspecified as the cause of abnormal reaction of the patient, or of later complication, without mention of misadventure at the time of the procedure; Y92.89 Other specified places as the place of occurrence of the external cause

== ENCOUNTER → 2019-01-23 | Outpatient (CLI) | payer OTHER | END | disposition home or self-care (01) | LOC: LAB 20:04 | PROVIDERS: Internal Medicine | DX: I82.409 Acute embolism and thrombosis of unspecified deep veins of unspecified lower extremity (principal) ==

== ENCOUNTER → 2019-03-08 | Outpatient (CLI) | payer OTHER ==
[2019-03-08 18:55] LABS: INTERNATIONAL NORM RATIO 1.6 (2.0-3.5)
== END | disposition home or self-care (01) ==
LOC: LAB 17:32
PROVIDERS: Internal Medicine
DX: I82.409 Acute embolism and thrombosis of unspecified deep veins of unspecified lower extremity (principal)

== ENCOUNTER → 2019-03-14 | Outpatient (CLI) | payer OTHER ==
[2019-03-14 23:41] LABS: INTERNATIONAL NORM RATIO 1.7 (2.0-3.5)
== END | disposition home or self-care (01) ==
LOC: LAB 22:00
PROVIDERS: Internal Medicine
DX: I82.409 Acute embolism and thrombosis of unspecified deep veins of unspecified lower extremity (principal)

== ENCOUNTER 2019-04-22 21:42 | Emergency (ER) | payer OTHER ==
[~2019-04-22] VITALS: Ht 160 cm; Wt 84.8 kg
[2019-04-22 22:34] LABS: ACT PARTIAL THROMBO TIME 38.7 SECONDS (20.0-32.1); INTERNATIONAL NORM RATIO 4.2 (2.0-3.5)
== END 2019-04-22 23:52 | disposition home or self-care (01) ==
LOC: ED 21:42
PROVIDERS: Emergency Medicine
DX: T82.838A Hemorrhage due to vascular prosthetic devices, implants and grafts, initial encounter (principal); R79.1 Abnormal coagulation profile; F41.9 Anxiety disorder, unspecified; F31.9 Bipolar disorder, unspecified; K21.9 Gastro-esophageal reflux disease without esophagitis; Z88.1 Allergy status to other antibiotic agents; Z91.040 Latex allergy status; Z90.49 Acquired absence of other specified parts of digestive tract; Z79.01 Long term (current) use of anticoagulants; Y84.8 Other medical procedures as the cause of abnormal reaction of the patient, or of later complication, without mention of misadventure at the time of the procedure; Y92.89 Other specified places as the place of occurrence of the external cause

== ENCOUNTER → 2019-04-22 | Outpatient (CLI) | payer OTHER ==
[2019-04-22 21:53] LABS: INTERNATIONAL NORM RATIO 4.6 (2.0-3.5)
== END | disposition home or self-care (01) ==
LOC: LAB 20:04
PROVIDERS: Internal Medicine
DX: I82.409 Acute embolism and thrombosis of unspecified deep veins of unspecified lower extremity (principal)

== ENCOUNTER → 2019-05-01 | Outpatient (CLI) | payer OTHER ==
[2019-05-01 16:14] LABS: INTERNATIONAL NORM RATIO 1.8 (2.0-3.5)
== END | disposition home or self-care (01) ==
LOC: LAB 15:11
PROVIDERS: Internal Medicine
DX: I82.409 Acute embolism and thrombosis of unspecified deep veins of unspecified lower extremity (principal)

== ENCOUNTER → 2019-05-15 | Outpatient (CLI) | payer OTHER | END | disposition home or self-care (01) | LOC: LAB 20:01 | PROVIDERS: Internal Medicine | DX: I82.409 Acute embolism and thrombosis of unspecified deep veins of unspecified lower extremity (principal) ==

== ENCOUNTER → 2019-08-04 | Outpatient (CLI) | payer OTHER ==
--- NOTE | 2019-08-04 11:43 | NUR ---
PATIENT AMBULATED TO TREATMENT AREA FOR MEDIPORT FLUSH AND INR. PATIENT VERIFIED NAME AND DATE OF REGISTATION SHEET SIGNED. ACCESSED MEDIPORT WITH PROMPT BLOOD RETURN PER POLICY. INR WAS DRAWN AND SENT TO LAB PER POLICY, MEDIPORT WASA FLUSHED WITH NORMAL SALINE FOLLOW BY HEPARIN, PRESSURE BANDAGE APPLIED TO SITE, BLEEDING CONTROLLED PATIENT TOLERATE WELL, PATIENT AMBULATED OFF UNIT NO DISTRESS NOTED.
[2019-08-04 12:29] LABS: INTERNATIONAL NORM RATIO 5.3 (2.0-3.5)
== END | disposition home or self-care (01) ==
LOC: LAB 10:54 → MEDIPORT 11:00
PROVIDERS: Internal Medicine
DX: I82.409 Acute embolism and thrombosis of unspecified deep veins of unspecified lower extremity (principal)

== ENCOUNTER → 2019-08-08 | Outpatient (CLI) | payer OTHER ==
[2019-08-08 16:42] LABS: INTERNATIONAL NORM RATIO 1.9 (2.0-3.5)
== END | disposition home or self-care (01) ==
LOC: LAB 08-07 16:34
PROVIDERS: Internal Medicine
DX: I82.409 Acute embolism and thrombosis of unspecified deep veins of unspecified lower extremity (principal)

== ENCOUNTER → 2019-08-15 | Outpatient (CLI) | payer OTHER ==
[2019-08-15 15:15] LABS: INTERNATIONAL NORM RATIO 4.4 (2.0-3.5)
== END | disposition home or self-care (01) ==
LOC: LAB 14:44
PROVIDERS: Internal Medicine
DX: I82.409 Acute embolism and thrombosis of unspecified deep veins of unspecified lower extremity (principal)

== ENCOUNTER → 2019-09-08 | Outpatient (CLI) | payer OTHER ==
--- NOTE | 2019-09-08 13:20 | NUR ---
PT HERE FOR MEDIPORT FLUSH AND LAB DRAW. [facility] MEDIPORT ACCESSED WITH NONCORING NEEDLE WITHOUT DIFFUCULTY. PROMPT BLOOD RETURN. BLOOD SENT TO MAIN LAB. NEEDLE REMOVED. NO BLEEDING NOTED. DRESSING APPLIED. PT TOLERATED WELL. KRANTHI CONNER RN
[2019-09-08 14:16] LABS: INTERNATIONAL NORM RATIO 4.6 (2.0-3.5)
== END | disposition home or self-care (01) ==
LOC: MEDIPORT 09-05 13:00 → LAB 12:33 → MEDIPORT 13:00
PROVIDERS: Internal Medicine
DX: I82.409 Acute embolism and thrombosis of unspecified deep veins of unspecified lower extremity (principal)

== ENCOUNTER → 2019-09-16 | Outpatient (CLI) | payer OTHER ==
[2019-09-16 20:43] LABS: INTERNATIONAL NORM RATIO 3.2 (2.0-3.5)
== END | disposition home or self-care (01) ==
LOC: LAB 20:00
PROVIDERS: Internal Medicine
DX: I82.409 Acute embolism and thrombosis of unspecified deep veins of unspecified lower extremity (principal)

== ENCOUNTER → 2019-09-25 | Outpatient (CLI) | payer OTHER ==
[2019-09-25 20:08] LABS: INTERNATIONAL NORM RATIO 2.2 (2.0-3.5)
== END | disposition home or self-care (01) ==
LOC: LAB 19:31
PROVIDERS: Internal Medicine
DX: I82.409 Acute embolism and thrombosis of unspecified deep veins of unspecified lower extremity (principal)

== ENCOUNTER → 2019-10-31 | Outpatient (CLI) | payer OTHER ==
--- NOTE | 2019-10-31 11:15 | NUR ---
PT HERE FOR LAB DRAW AND MEDIPORT FLUSH ORDERED. [facility] [place] WITH NONCORING NEEDLE. LAB DRAW DONE WITHOUT DIFFUCULTY. SENT TO MAIN LAB. HEPARIN FLUSH PER POLICY. NEEDLE REMOVED. TOLERATED WELL. DRESSING APPLIED. KRANTHI CONNER RN
[2019-10-31 11:47] LABS: INTERNATIONAL NORM RATIO 2.3 (2.0-3.5)
== END | disposition home or self-care (01) ==
LOC: MEDIPORT 10:53
PROVIDERS: Internal Medicine
DX: Z45.2 Encounter for adjustment and management of vascular access device (principal); I82.409 Acute embolism and thrombosis of unspecified deep veins of unspecified lower extremity

== ENCOUNTER → 2019-11-10 | Outpatient (CLI) | payer OTHER ==
[2019-11-10 17:10] LABS: INTERNATIONAL NORM RATIO 2.5 (2.0-3.5)
== END | disposition home or self-care (01) ==
LOC: LAB 16:46
PROVIDERS: Internal Medicine
DX: I82.409 Acute embolism and thrombosis of unspecified deep veins of unspecified lower extremity (principal)

== ENCOUNTER → 2019-12-11 | Outpatient (CLI) | payer OTHER ==
[2019-12-11 10:55] LABS: BASO % 0.7 % (0.0-1.0); EOS # 0.1 10*3/uL (0.0-0.4); EOS % 1.9 % (1.0-4.0); HEMATOCRIT 39.9 % (37.0-47.0); LYMPH % 24.2 % (27.0-41.0); MEAN CELL VOLUME 86.7 fl (81.0-99.0); MEAN CORPUSCULAR HGB 28.5 pg (27.0-31.0); MEAN CORPUSCULAR HGB CONC 32.8 g/dl (33.0-37.0); MEAN PLATELET VOLUME 9.2 fl (9.6-12.3); MONO # 0.3 10*3/uL (0.1-1.0); MONO % 6.5 % (3.0-9.0); NEUT # 2.9 10*3/uL (2.3-7.9); NEUT % 66.7 % (47.0-73.0); PLATELET COUNT AUTOMATED 300 10*3/uL (130-400); RED CELL DISTRI WIDTH 13.2 % (0-14.5); WHITE BLOOD COUNT 4.3 10*3/uL (4.8-10.8)
[2019-12-11 11:35] LABS: BUN 15 mg/dl (7-24); CHLORIDE 106 mmol/L (98-107); POTASSIUM 3.9 mmol/L (3.5-5.1); SODIUM 139 mmol/L (136-145); TRIGLYCERIDES 90 mg/dl (<150); VLDL CHOLESTEROL 18 mg/dL (6-40)
[2019-12-11 11:46] LABS: ALKALINE PHOSPHATASE 14 U/L (45-117); CHOLESTEROL 197 mg/dL (<200); CREATININE 0.72 mg/dL (0.55-1.02); HDL CHOLESTEROL 54 mg/dl (40-60); LDL CHOLESTEROL 125 mg/dL (9-159); SGOT/AST 22 IU/L (3-35); SGPT/ALT 23 U/L (12-78); THYROID STIM HORMONE (HS) 0.961 uIU/ml (0.358-4.75); TOTAL PROTEIN 7.7 gm/dL (6.4-8.2)
== END | disposition home or self-care (01) ==
LOC: LAB 10:32
PROVIDERS: ATTEND Internal Medicine
DX: I82.409 Acute embolism and thrombosis of unspecified deep veins of unspecified lower extremity (principal); R52 Pain, unspecified; I87.1 Compression of vein; E55.9 Vitamin D deficiency, unspecified; R60.0 Localized edema

== ENCOUNTER → 2019-12-15 | Outpatient (CLI) | payer OTHER ==
[2019-12-15 11:28] LABS: INTERNATIONAL NORM RATIO 2.4 (2.0-3.5)
== END | disposition home or self-care (01) ==
LOC: LAB 10:20
PROVIDERS: Internal Medicine
DX: I82.409 Acute embolism and thrombosis of unspecified deep veins of unspecified lower extremity (principal)

== ENCOUNTER 2020-01-12 10:28 | Emergency (ER) | payer OTHER ==
[~2020-01-12] VITALS: Ht 160 cm; Wt 79.4 kg
[2020-01-12] MEDS ORDERED: FLONASE ALLERG9.9 ML NAS (10:45)
[2020-01-12] MEDS ORDERED: MEDROL DOSEPAK4 MG PO (10:45)
[2020-01-12] MEDS ORDERED: TESSALON PERLE100 M1 PO (10:45)
[2020-01-12] MEDS ORDERED: AUGMENTIN 875875 MG PO (10:45)
== END 2020-01-12 11:00 | disposition home or self-care (01) ==
LOC: ED 10:28
DX: J32.9 Chronic sinusitis, unspecified (principal); Z88.1 Allergy status to other antibiotic agents; Z88.8 Allergy status to other drugs, medicaments and biological substances; Z91.040 Latex allergy status; Z79.899 Other long term (current) drug therapy; Z79.01 Long term (current) use of anticoagulants; Z87.891 Personal history of nicotine dependence

== ENCOUNTER → 2020-01-30 | Outpatient (CLI) | payer OTHER ==
[~2020-01-30] MED LIST changes: +AUGMENTIN 875875 MG PO; +MEDROL DOSEPAK4 MG PO; +TESSALON PERLE100 M1 PO
[2020-01-30 14:49] LABS: INTERNATIONAL NORM RATIO 2.5 (2.0-3.5)
== END | disposition home or self-care (01) ==
LOC: LAB 14:18
PROVIDERS: ATTEND Internal Medicine
DX: I82.409 Acute embolism and thrombosis of unspecified deep veins of unspecified lower extremity (principal)

== ENCOUNTER → 2020-03-05 | Outpatient (CLI) | payer OTHER ==
[2020-03-05 11:29] LABS: INTERNATIONAL NORM RATIO 1.8 (2.0-3.5)
== END | disposition home or self-care (01) ==
LOC: MEDIPORT 10:41
PROVIDERS: ATTEND Internal Medicine
DX: I82.409 Acute embolism and thrombosis of unspecified deep veins of unspecified lower extremity (principal)

== ENCOUNTER → 2020-03-20 | Outpatient (CLI) | payer OTHER ==
[2020-03-20 15:28] LABS: INTERNATIONAL NORM RATIO 2.8 (2.0-3.5)
== END | disposition home or self-care (01) ==
LOC: LAB 13:18
PROVIDERS: ATTEND Internal Medicine
DX: I82.409 Acute embolism and thrombosis of unspecified deep veins of unspecified lower extremity (principal)

== ENCOUNTER → 2020-04-29 | Outpatient (CLI) | payer OTHER ==
[2020-04-29 11:10] LABS: INTERNATIONAL NORM RATIO 1.9 (2.0-3.5)
== END | disposition home or self-care (01) ==
LOC: MEDIPORT 10:26
PROVIDERS: ATTEND Internal Medicine
DX: Z45.2 Encounter for adjustment and management of vascular access device (principal); I82.409 Acute embolism and thrombosis of unspecified deep veins of unspecified lower extremity

== ENCOUNTER → 2020-06-15 | Outpatient (CLI) | payer OTHER ==
[2020-06-15 12:04] LABS: INTERNATIONAL NORM RATIO 3.7 (2.0-3.5)
== END | disposition home or self-care (01) ==
LOC: MEDIPORT 06-10 11:00
PROVIDERS: ATTEND Internal Medicine
DX: Z45.2 Encounter for adjustment and management of vascular access device (principal); I82.409 Acute embolism and thrombosis of unspecified deep veins of unspecified lower extremity

== ENCOUNTER → 2020-07-13 | Outpatient (CLI) | payer OTHER ==
[2020-07-13 14:55] LABS: INTERNATIONAL NORM RATIO 3.5 (2.0-3.5)
== END | disposition home or self-care (01) ==
LOC: LAB 14:34
PROVIDERS: ATTEND Internal Medicine
DX: I82.409 Acute embolism and thrombosis of unspecified deep veins of unspecified lower extremity (principal)

== ENCOUNTER → 2020-08-12 | Outpatient (CLI) | payer OTHER ==
[2020-08-12 12:10] LABS: INTERNATIONAL NORM RATIO 4.1 (2.0-3.5)
== END | disposition home or self-care (01) ==
LOC: MEDIPORT 10:51
PROVIDERS: ATTEND Internal Medicine
DX: Z45.2 Encounter for adjustment and management of vascular access device (principal); I82.409 Acute embolism and thrombosis of unspecified deep veins of unspecified lower extremity

== ENCOUNTER → 2020-08-31 | Outpatient (CLI) | payer OTHER ==
[2020-08-31 15:30] LABS: INTERNATIONAL NORM RATIO 2.7 (2.0-3.5)
== END | disposition home or self-care (01) ==
LOC: LAB 14:48
PROVIDERS: ATTEND Internal Medicine
DX: I82.409 Acute embolism and thrombosis of unspecified deep veins of unspecified lower extremity (principal)

== ENCOUNTER → 2020-09-21 | Outpatient (CLI) | payer OTHER ==
[2020-09-21 14:25] LABS: INTERNATIONAL NORM RATIO 2.9 (2.0-3.5)
== END | disposition home or self-care (01) ==
LOC: LAB 13:52
PROVIDERS: ATTEND Internal Medicine
DX: I82.409 Acute embolism and thrombosis of unspecified deep veins of unspecified lower extremity (principal)

== ENCOUNTER → 2020-10-28 | Outpatient (CLI) | payer OTHER ==
[2020-10-28 09:12] VITALS: BP 112/73
[2020-10-28 10:19] LABS: INTERNATIONAL NORM RATIO 3.2 (2.0-3.5)
== END | disposition home or self-care (01) ==
LOC: LAB 08:57 → MEDIPORT 10:00
PROVIDERS: ATTEND Internal Medicine
DX: Z45.2 Encounter for adjustment and management of vascular access device (principal); I82.409 Acute embolism and thrombosis of unspecified deep veins of unspecified lower extremity

== ENCOUNTER → 2020-12-01 | Outpatient (CLI) | payer OTHER ==
[2020-12-01 10:50] VITALS: BP 134/74
[2020-12-01 11:16] LABS: INTERNATIONAL NORM RATIO 3.3 (2.0-3.5)
== END | disposition home or self-care (01) ==
LOC: LAB 10:23 → MEDIPORT 10:30
PROVIDERS: ATTEND Internal Medicine
DX: I82.409 Acute embolism and thrombosis of unspecified deep veins of unspecified lower extremity (principal)

== ENCOUNTER 2020-12-08 09:23 | Emergency (ER) | payer OTHER ==
[~2020-12-08] VITALS: Ht 162.5 cm; Wt 77.1 kg
[2020-12-08 10:32] LABS: BASO % 0.4 % (0.0-1.0); EOS # 0.1 10*3/uL (0.0-0.4); EOS % 0.9 % (1.0-4.0); HEMATOCRIT 31.5 % (37.0-47.0); LYMPH # 1.1 10*3/uL (1.3-4.4); LYMPH % 20.4 % (27.0-41.0); MEAN CORPUSCULAR HGB 29.6 pg (27.0-31.0); MEAN CORPUSCULAR HGB CONC 33.7 g/dl (33.0-37.0); MEAN PLATELET VOLUME 8.9 fl (9.6-12.3); MONO # 0.3 10*3/uL (0.1-1.0); NEUT % 72.9 % (47.0-73.0); PLATELET COUNT AUTOMATED 198 10*3/uL (130-400); RED BLOOD COUNT 3.58 10*6/uL (4.10-5.10); RED CELL DISTRI WIDTH 12.2 % (0-14.5); WHITE BLOOD COUNT 5.4 10*3/uL (4.8-10.8)
[2020-12-08 10:44] LABS: ACT PARTIAL THROMBO TIME 37.3 SECONDS (20.0-32.1); INTERNATIONAL NORM RATIO 2.9 (2.0-3.5)
[2020-12-08 10:47] LABS: ALBUMIN 3.6 gm/dl (3.1-4.5); ALKALINE PHOSPHATASE 12 U/L (45-117); BUN 16 mg/dl (7-24); CHLORIDE 107 mmol/L (98-107); CREATININE 0.68 mg/dL (0.55-1.02); LIPASE 75 U/L (73-393); POTASSIUM 4.2 mmol/L (3.5-5.1); SGOT/AST 10 IU/L (3-35); SGPT/ALT 15 U/L (12-78); SODIUM 136 mmol/L (136-145)
[2020-12-08 10:50] LABS: BETA-HCG, QUANT < 1.0 mIU/mL (1-3)
[2020-12-08 14:34] LABS: HEMATOCRIT 28.2 % (37.0-47.0)
== END 2020-12-08 15:06 | disposition short-term general hospital (02) ==
LOC: ED 09:23
PROVIDERS: Emergency Medicine
DX: N83.201 Unspecified ovarian cyst, right side (principal); D68.8 Other specified coagulation defects; R10.84 Generalized abdominal pain; F17.210 Nicotine dependence, cigarettes, uncomplicated; Z98.51 Tubal ligation status; Z90.49 Acquired absence of other specified parts of digestive tract; Z98.890 Other specified postprocedural states; Z79.899 Other long term (current) drug therapy; Z79.01 Long term (current) use of anticoagulants; Z88.1 Allergy status to other antibiotic agents; Z91.040 Latex allergy status

== ENCOUNTER → 2020-12-15 | Outpatient (CLI) | payer OTHER ==
[2020-12-15 12:03] LABS: INTERNATIONAL NORM RATIO 2.2 (2.0-3.5)
== END | disposition home or self-care (01) ==
LOC: LAB 11:35
PROVIDERS: ATTEND Internal Medicine
DX: I82.409 Acute embolism and thrombosis of unspecified deep veins of unspecified lower extremity (principal)

== ENCOUNTER → 2020-12-24 | Outpatient (CLI) | payer OTHER | END | disposition home or self-care (01) | LOC: US 00:03 | PROVIDERS: ATTEND Internal Medicine | DX: N83.209 Unspecified ovarian cyst, unspecified side (principal); Z90.49 Acquired absence of other specified parts of digestive tract ==

== ENCOUNTER → 2021-01-11 | Outpatient (CLI) | payer OTHER ==
[2021-01-11 11:44] LABS: INTERNATIONAL NORM RATIO 2.2 (2.0-3.5)
== END | disposition home or self-care (01) ==
LOC: LAB 11:13
PROVIDERS: ATTEND Internal Medicine
DX: I82.409 Acute embolism and thrombosis of unspecified deep veins of unspecified lower extremity (principal)

== ENCOUNTER → 2021-03-10 | Outpatient (CLI) | payer OTHER ==
[2021-03-10 12:59] LABS: BASO % 0.4 % (0.0-1.0); EOS # 0.1 10*3/uL (0.0-0.4); EOS % 2.9 % (1.0-4.0); HEMATOCRIT 37.6 % (37.0-47.0); LYMPH # 1.5 10*3/uL (1.3-4.4); MEAN CELL VOLUME 88.7 fl (81.0-99.0); MEAN CORPUSCULAR HGB 29.5 pg (27.0-31.0); MEAN CORPUSCULAR HGB CONC 33.2 g/dl (33.0-37.0); MONO # 0.3 10*3/uL (0.1-1.0); MONO % 5.6 % (3.0-9.0); NEUT # 2.6 10*3/uL (2.3-7.9); NEUT % 57.9 % (47.0-73.0); PLATELET COUNT AUTOMATED 271 10*3/uL (130-400); RED BLOOD COUNT 4.24 10*6/uL (4.10-5.10); RED CELL DISTRI WIDTH 12.8 % (0-14.5); WHITE BLOOD COUNT 4.5 10*3/uL (4.8-10.8)
[2021-03-10 13:08] LABS: INTERNATIONAL NORM RATIO 2.1 (2.0-3.5)
[2021-03-10 13:31] LABS: ALBUMIN 3.7 gm/dl (3.1-4.5); ALKALINE PHOSPHATASE 13 U/L (45-117); BUN 14 mg/dl (7-24); CHLORIDE 110 mmol/L (98-107); CHOLESTEROL 188 mg/dL (<200); CREATININE 0.63 mg/dL (0.55-1.02); LDL CHOLESTEROL 112 mg/dL (9-159); SGOT/AST 12 IU/L (3-35); SGPT/ALT 22 U/L (12-78); SODIUM 140 mmol/L (136-145); TOTAL PROTEIN 7.3 gm/dL (6.4-8.2); TRIGLYCERIDES 92 mg/dl (<150)
[2021-03-10 13:38] LABS: THYROID STIM HORMONE (HS) 0.556 uIU/ml (0.358-4.75)
== END | disposition home or self-care (01) ==
LOC: LAB 11:59
PROVIDERS: ATTEND Internal Medicine
DX: Z45.2 Encounter for adjustment and management of vascular access device (principal); I82.409 Acute embolism and thrombosis of unspecified deep veins of unspecified lower extremity

== ENCOUNTER → 2021-05-26 | Outpatient (CLI) | payer OTHER ==
[2021-05-26 11:05] LABS: INTERNATIONAL NORM RATIO 1.6 (2.0-3.5)
== END | disposition home or self-care (01) ==
LOC: LAB 10:15 → MEDIPORT 10:30
PROVIDERS: ATTEND Internal Medicine
DX: I82.409 Acute embolism and thrombosis of unspecified deep veins of unspecified lower extremity (principal)

== ENCOUNTER → 2021-06-01 | Outpatient (CLI) | payer OTHER ==
[2021-06-01 14:14] LABS: INTERNATIONAL NORM RATIO 1.6 (2.0-3.5)
== END | disposition home or self-care (01) ==
LOC: LAB 13:43
PROVIDERS: ATTEND Internal Medicine
DX: I82.409 Acute embolism and thrombosis of unspecified deep veins of unspecified lower extremity (principal)

== ENCOUNTER → 2021-06-08 | Outpatient (CLI) | payer OTHER ==
[2021-06-08 12:12] LABS: INTERNATIONAL NORM RATIO 2.3 (2.0-3.5)
== END | disposition home or self-care (01) ==
LOC: LAB 11:36
PROVIDERS: ATTEND Internal Medicine
DX: I82.409 Acute embolism and thrombosis of unspecified deep veins of unspecified lower extremity (principal)

== ENCOUNTER → 2021-06-21 | Outpatient (CLI) | payer OTHER ==
[2021-06-21 13:13] LABS: INTERNATIONAL NORM RATIO 1.5 (2.0-3.5)
== END | disposition home or self-care (01) ==
LOC: LAB 12:41
PROVIDERS: ATTEND Internal Medicine
DX: I82.409 Acute embolism and thrombosis of unspecified deep veins of unspecified lower extremity (principal)

== ENCOUNTER → 2021-07-15 | Outpatient (CLI) | payer OTHER ==
[2021-07-15 11:08] LABS: INTERNATIONAL NORM RATIO 3.9 (2.0-3.5)
== END | disposition home or self-care (01) ==
LOC: LAB 10:45
PROVIDERS: ATTEND Internal Medicine
DX: I82.409 Acute embolism and thrombosis of unspecified deep veins of unspecified lower extremity (principal)

== ENCOUNTER → 2021-07-25 | Outpatient (CLI) | payer OTHER ==
[2021-07-25 11:18] LABS: INTERNATIONAL NORM RATIO 2.4 (2.0-3.5)
== END | disposition home or self-care (01) ==
LOC: MEDIPORT 10:41
PROVIDERS: ATTEND Internal Medicine
DX: Z45.2 Encounter for adjustment and management of vascular access device (principal); I82.409 Acute embolism and thrombosis of unspecified deep veins of unspecified lower extremity

== ENCOUNTER 2021-09-21 06:31 | Emergency (ER) | payer OTHER ==
[2021-09-21 08:10] LABS: BASO % 0.2 % (0.0-1.0); EOS # 0.1 10*3/uL (0.0-0.4); LYMPH # 1.2 10*3/uL (1.3-4.4); LYMPH % 19.9 % (27.0-41.0); MEAN CORPUSCULAR HGB 29.7 pg (27.0-31.0); MEAN CORPUSCULAR HGB CONC 33.4 g/dl (33.0-37.0); MEAN PLATELET VOLUME 8.9 fl (9.6-12.3); MONO # 0.3 10*3/uL (0.1-1.0); MONO % 4.9 % (3.0-9.0); NEUT # 4.5 10*3/uL (2.3-7.9); NEUT % 73.7 % (47.0-73.0); PLATELET COUNT AUTOMATED 230 10*3/uL (130-400); RED BLOOD COUNT 4.27 10*6/uL (4.10-5.10); RED CELL DISTRI WIDTH 12.1 % (0-14.5); WHITE BLOOD COUNT 6.1 10*3/uL (4.8-10.8)
[2021-09-21 08:22] LABS: ACT PARTIAL THROMBO TIME 29.5 SECONDS (20.0-32.1); INTERNATIONAL NORM RATIO 1.5 (2.0-3.5)
[2021-09-21 08:26] LABS: ALKALINE PHOSPHATASE 11 U/L (45-117); BUN 11 mg/dl (7-24); CHLORIDE 110 mmol/L (98-107); CREATININE 0.74 mg/dL (0.55-1.02); LIPASE 58 U/L (73-393); POTASSIUM 4.2 mmol/L (3.5-5.1); SGOT/AST 14 IU/L (3-35); SGPT/ALT 16 U/L (12-78); SODIUM 140 mmol/L (136-145); TOTAL PROTEIN 6.9 gm/dL (6.4-8.2)
[2021-09-21 08:31] LABS: BETA-HCG, QUANT < 1.0 mIU/mL (1-3)
[2021-09-21] MEDS ORDERED: ZOFRAN4 MG PO (09:43)
== END 2021-09-21 10:14 | disposition home or self-care (01) ==
LOC: ED 06:31
PROVIDERS: Emergency Medicine
DX: R11.2 Nausea with vomiting, unspecified (principal); Z98.51 Tubal ligation status; Z90.49 Acquired absence of other specified parts of digestive tract; Z98.890 Other specified postprocedural states; Z79.01 Long term (current) use of anticoagulants; Z79.899 Other long term (current) drug therapy; Z88.1 Allergy status to other antibiotic agents; Z91.040 Latex allergy status

== ENCOUNTER → 2021-12-27 | Outpatient (CLI) | payer OTHER ==
[2021-12-27 12:08] LABS: INTERNATIONAL NORM RATIO 1.5 (2.0-3.5)
== END | disposition home or self-care (01) ==
LOC: LAB 11:34
PROVIDERS: ATTEND Internal Medicine
DX: I82.409 Acute embolism and thrombosis of unspecified deep veins of unspecified lower extremity (principal)

== ENCOUNTER → 2022-01-04 | Outpatient (CLI) | payer OTHER ==
[2022-01-04 11:57] LABS: INTERNATIONAL NORM RATIO 2.1 (2.0-3.5)
== END | disposition home or self-care (01) ==
LOC: MEDIPORT 11:00
PROVIDERS: ATTEND Internal Medicine
DX: Z45.2 Encounter for adjustment and management of vascular access device (principal); I82.409 Acute embolism and thrombosis of unspecified deep veins of unspecified lower extremity

== ENCOUNTER → 2022-01-16 | Outpatient (CLI) | payer OTHER ==
[2022-01-16 11:43] LABS: INTERNATIONAL NORM RATIO 1.9 (2.0-3.5)
== END ==
LOC: LAB 10:56
PROVIDERS: ATTEND Internal Medicine
DX: I82.409 Acute embolism and thrombosis of unspecified deep veins of unspecified lower extremity (principal)

== ENCOUNTER 2022-02-02 10:21 | Emergency (ER) | payer OTHER ==
[~2022-02-02] VITALS: Ht 162.5 cm; Wt 75.7 kg
[2022-02-02 11:06] LABS: BASO % 0.3 % (0.0-1.0); EOS # 0.1 10*3/uL (0.0-0.4); EOS % 1.5 % (1.0-4.0); HEMATOCRIT 37.7 % (37.0-47.0); LYMPH # 1.6 10*3/uL (1.3-4.4); LYMPH % 25.2 % (27.0-41.0); MEAN CORPUSCULAR HGB 30.3 pg (27.0-31.0); MEAN CORPUSCULAR HGB CONC 33.7 g/dl (33.0-37.0); MEAN PLATELET VOLUME 8.7 fl (9.6-12.3); MONO # 0.3 10*3/uL (0.1-1.0); MONO % 4.6 % (3.0-9.0); NEUT # 4.2 10*3/uL (2.3-7.9); NEUT % 68.2 % (47.0-73.0); PLATELET COUNT AUTOMATED 230 10*3/uL (130-400); RED BLOOD COUNT 4.19 10*6/uL (4.10-5.10); RED CELL DISTRI WIDTH 12.5 % (0-14.5); WHITE BLOOD COUNT 6.1 10*3/uL (4.8-10.8)
[2022-02-02 11:17] LABS: ACT PARTIAL THROMBO TIME 37.8 SECONDS (20.0-32.1); INTERNATIONAL NORM RATIO 2.7 (2.0-3.5)
[2022-02-02 11:22] LABS: ALKALINE PHOSPHATASE 12 U/L (45-117); BUN 15 mg/dl (7-24); CHLORIDE 112 mmol/L (98-107); CREATININE 0.69 mg/dL (0.55-1.02); LIPASE 87 U/L (73-393); SGOT/AST 13 IU/L (3-35); SGPT/ALT 21 U/L (12-78); SODIUM 144 mmol/L (136-145); TOTAL PROTEIN 7.3 gm/dL (6.4-8.2)
[2022-02-02 11:29] LABS: BILIRUBIN Negative (Negative); BLOOD Negative (Negative); CLARITY Cloudy (Clear); COLOR Yellow (Yellow); GLUCOSE Negative (Negative); KETONE 1+ (Negative); LEUKO ESTERASE Trace (Negative); NITRITE Negative (Negative); SPECIFIC GRAVITY >= 1.030 (1.001-1.030)
[2022-02-02 12:06] LABS: BACTERIA 1+; EPITHELIAL CELLS 16-20
[2022-02-02] MEDS ORDERED: HYDROCODONE-AC1 EAC1 PO (14:32)
== END 2022-02-02 14:48 | disposition home or self-care (01) ==
LOC: ED 10:21
PROVIDERS: Emergency Medicine
DX: N83.201 Unspecified ovarian cyst, right side (principal); K21.9 Gastro-esophageal reflux disease without esophagitis; E03.9 Hypothyroidism, unspecified; G43.909 Migraine, unspecified, not intractable, without status migrainosus; E66.9 Obesity, unspecified; Z90.49 Acquired absence of other specified parts of digestive tract; Z88.1 Allergy status to other antibiotic agents; Z88.8 Allergy status to other drugs, medicaments and biological substances; Z91.040 Latex allergy status; Z79.899 Other long term (current) drug therapy; F17.210 Nicotine dependence, cigarettes, uncomplicated; Z98.890 Other specified postprocedural states; Z98.51 Tubal ligation status

== ENCOUNTER → 2022-02-17 | Outpatient (CLI) | payer OTHER ==
[~2022-02-17] MED LIST changes: +HYDROCODONE-AC1 EAC1 PO
[2022-02-17 09:24] LABS: BASO % 0.6 % (0.0-1.0); EOS # 0.1 10*3/uL (0.0-0.4); EOS % 3.8 % (1.0-4.0); LYMPH # 1.1 10*3/uL (1.3-4.4); LYMPH % 32.1 % (27.0-41.0); MEAN CELL VOLUME 89.8 fl (81.0-99.0); MEAN CORPUSCULAR HGB CONC 33.4 g/dl (33.0-37.0); MEAN PLATELET VOLUME 8.8 fl (9.6-12.3); MONO # 0.2 10*3/uL (0.1-1.0); MONO % 6.5 % (3.0-9.0); NEUT # 1.9 10*3/uL (2.3-7.9); NEUT % 56.7 % (47.0-73.0); PLATELET COUNT AUTOMATED 278 10*3/uL (130-400); RED BLOOD COUNT 4.23 10*6/uL (4.10-5.10); RED CELL DISTRI WIDTH 12.4 % (0-14.5); WHITE BLOOD COUNT 3.4 10*3/uL (4.8-10.8)
[2022-02-17 09:52] LABS: THYROID STIM HORMONE (HS) 0.571 uIU/ml (0.358-4.75)
[2022-02-21 21:05] LABS: TESTOSTERONE FREE, (DIRECT) 1.4 pg/mL (0.0-4.2)
== END | disposition home or self-care (01) ==
LOC: LAB 08:46
PROVIDERS: ATTEND Nurse Practitioner Family
DX: N83.209 Unspecified ovarian cyst, unspecified side (principal)

== ENCOUNTER → 2022-03-06 | Outpatient (CLI) | payer OTHER ==
[2022-03-06 11:34] LABS: INTERNATIONAL NORM RATIO 2.2 (2.0-3.5)
== END | disposition home or self-care (01) ==
LOC: LAB 10:31
PROVIDERS: ATTEND Internal Medicine
DX: I82.409 Acute embolism and thrombosis of unspecified deep veins of unspecified lower extremity (principal)

== ENCOUNTER → 2022-04-21 | Outpatient (CLI) | payer OTHER ==
[2022-05-01 04:06] LABS: ALDOSTERONE, SERUM 1.1 ng/dL (0.0-30.0)
== END | disposition home or self-care (01) ==
LOC: LAB 08:55 → MEDIPORT 10:00
PROVIDERS: ATTEND Internal Medicine
DX: Z45.2 Encounter for adjustment and management of vascular access device (principal); I82.409 Acute embolism and thrombosis of unspecified deep veins of unspecified lower extremity

== ENCOUNTER 2022-05-16 20:04 | Emergency (ER) | payer OTHER ==
[~2022-05-16] VITALS: Ht 162.5 cm; Wt 75.3 kg
[2022-05-17 01:23] LABS: INTERNATIONAL NORM RATIO 1.9 (2.0-3.5)
== END 2022-05-17 06:25 | disposition home or self-care (01) ==
LOC: ED 20:04
PROVIDERS: Emergency Medicine
DX: G43.909 Migraine, unspecified, not intractable, without status migrainosus (principal); E66.9 Obesity, unspecified; K21.9 Gastro-esophageal reflux disease without esophagitis; F17.210 Nicotine dependence, cigarettes, uncomplicated; Z88.1 Allergy status to other antibiotic agents; Z91.040 Latex allergy status; Z88.8 Allergy status to other drugs, medicaments and biological substances; Z79.899 Other long term (current) drug therapy; Z98.51 Tubal ligation status; Z98.890 Other specified postprocedural states; Z90.49 Acquired absence of other specified parts of digestive tract

== ENCOUNTER 2022-05-22 09:34 | Emergency (ER) | payer OTHER ==
[~2022-05-22] VITALS: Wt 75.3 kg
[2022-05-22] MEDS ORDERED: VALIUM5 MG PO (14:47)
[2022-05-22] MEDS ORDERED: PREDNISONE50 MG PO (14:47)
== END 2022-05-22 15:22 | disposition home or self-care (01) ==
LOC: ED 09:34
DX: G43.909 Migraine, unspecified, not intractable, without status migrainosus (principal); F41.9 Anxiety disorder, unspecified; F31.9 Bipolar disorder, unspecified; Z88.1 Allergy status to other antibiotic agents; Z91.041 Radiographic dye allergy status; Z88.8 Allergy status to other drugs, medicaments and biological substances; Z90.49 Acquired absence of other specified parts of digestive tract; Z98.51 Tubal ligation status; Z90.89 Acquired absence of other organs; Z98.890 Other specified postprocedural states; F17.200 Nicotine dependence, unspecified, uncomplicated

== ENCOUNTER → 2022-11-22 | Outpatient (CLI) | payer OTHER ==
[~2022-11-22] MED LIST changes: +VALIUM5 MG PO
[2022-11-22 09:10] LABS: INTERNATIONAL NORM RATIO 2.1 (2.0-3.5)
== END | disposition home or self-care (01) ==
LOC: LAB 08:08 → MEDIPORT 09:00
PROVIDERS: ATTEND Internal Medicine
DX: I82.409 Acute embolism and thrombosis of unspecified deep veins of unspecified lower extremity (principal); Z79.899 Other long term (current) drug therapy

== ENCOUNTER → 2023-05-14 | Outpatient (CLI) | payer OTHER ==
[~2023-05-14] MED LIST changes: +HEPARIN SODIUM 500 UNIT/5 ML SYR IV ONE; +HEPARIN SODIUM 500 UNIT/5 ML SYR IV SCH; +SODIUM CHLORIDE 0.9% 10 ML SYR IV PRN
== END | disposition home or self-care (01) ==
LOC: LAB 08:27 → MEDIPORT 08:27
PROVIDERS: ATTEND Internal Medicine
DX: Z45.2 Encounter for adjustment and management of vascular access device (principal); I82.409 Acute embolism and thrombosis of unspecified deep veins of unspecified lower extremity; Z79.899 Other long term (current) drug therapy